=== PATIENT | female | born 1985 | race Caucasian/White ===

== ENCOUNTER → 2017-01-20 | Outpatient (CLI) | payer MEDICAID ==
[~2017-01-20] MED LIST: CEPH-38 PO; CPH250CIP PO; Cranberry; DICL75TA2 PO; DOXY1TAB3 PO; HYDR-3454 PO; HYDR-700 PO; LD2VS100B PO; METH4TAB PO; NITR-65 PO; ONDA4TAB10 SL; OXYC-12 PO; PREN1TAB86 PO; SULF1TAB38 PO
--- OUTSIDE RECORDS SUMMARY | 2017-01-20 09:35 | XMS REPORT ---
Author Author MARVIN BULL [facility] eClinicalWorks Address Unknown Phone Unavailable Care Team Providers Care Sign Maker Name Role Phone MARVIN BULL CP Unavailable Allergies, Adverse Reactions, Alerts Substance Reaction Event Type Penicillins Info Not Available Non Drug Allergy Problems Problem Type Condition Code Onset Dates Condition Status Problem Insomnia, unspecified 780.52 Active Problem Human papilloma virus in conditions classified elsewhere and of unspecified site 079.4 Active Problem Yeast infection 112.9 Active Problem Disturbance of skin sensation 782.0 Active Assessment Toe pain M79.676 Active Problem Papanicolaou smear of cervix with atypical squamous cells of undetermined significance (ASC-US) 795.01 Active Problem Syncope and collapse 780.2 Active Medications No Known Medications Procedures Procedure Coding System Code Date Office Visit, Est Pt., Level 3 CPT-4 80749 March 05, 2016 Vital Signs Date/Time: March 05, 2016 Temperature 98.3 F Weight 164.3 lbs Height 64 in BMI 28.20 Index Blood Pressure Diastolic 70 mmHg Blood Pressure Systolic 110 mmHg Cardiac Monitoring Heart Rate 88 bpm Results No Known Results Summary Purpose eClinicalWorks Submission
--- NOTE | 2017-01-21 13:09 | Diagnostic Imaging Report ---
US OB<14 WKS SNGLE W/TRANSVAG TECHNIQUE: Transabdominal and transvaginal grayscale, color Doppler, and spectral duplex analysis of the pelvis was performed. INDICATION: dating. COMPARISON: None available. FINDINGS: The uterus measures 8.7 x 5.3 x 5.3 cm. There is a gestational sac present at the level of the fundus and appropriately located along the endometrium. The gestational sac is normal in size. An embryo is present with a crown-rump length of approximately 0.45 cm, which corresponds to a gestational age of 6 weeks and 2 days. heart tones are identified at a rate of 120 beats per minute. No evidence of significant subchorionic hemorrhage. Both ovaries are seen and normal in appearance. The right ovary measures 3.4 x 3.6 x 2.2 cm. The left ovary measures 2.0 x 2.4 x 1.8 cm. Within the right ovary, there is a circumscribed 1.9 x 1.3 x 1.3 cm hypoechoic focus with internal echoes, likely representing involuting corpus luteum cyst. Blood flow is seen in both ovaries by color Doppler imaging. No free pelvic fluid. IMPRESSION: 1. Single live intrauterine with a heart rate of 120 beats per minute. 2. Estimated gestational age by ultrasound is 6 weeks and 2 days, based on crown-rump length. Dictated by: Dictated on workstation # [id number]
== END ==
LOC: RAD 09:32
PROVIDERS: ATTEND Family Medicine
DX: Z34.91 Encounter for supervision of normal pregnancy, unspecified, first trimester (principal)
CPT/HCPCS: 76801; 76817

== ENCOUNTER 2017-02-22 20:22 | Emergency (ER) | payer MEDICAID ==
[~2017-02-22] VITALS: Ht 162.6 cm; Wt 74.8 kg
[~2017-02-22 20:22] MED LIST changes: -Cranberry; -DOXY1TAB3 PO; -NITR-65 PO; -ONDA4TAB10 SL; -PREN1TAB86 PO
[2017-02-22] MEDS ORDERED: NS IV 1000 ML 1,000 ML IV ONE (20:41)
[2017-02-22] MEDS ORDERED: PREN1TAB86 PO (20:41)
[2017-02-22] MEDS ORDERED: ONDA4TAB10 SL (20:41)
[2017-02-22] MEDS ORDERED: ONDANSETRON 4 MG/2 ML (SDV) Z0FRAN IVP ONE ×2 (20:45→21:30)
--- NOTE | 2017-02-22 20:55 | ED GU-Female ---
General Chief Complaint: Abdominal/GI Problems Stated Complaint: 11 WKS PREG, VOMITING Nursing Triage Note: Pt c/o nausea and vomiting since last night. pt reports she is approx 11 weeks and has been having morning sickness but nausea and vomiting got much worse last night and today. Nursing Sepsis Screen: No Definite Risk Source: patient Exam Limitations: no limitations History of Present Illness Time seen by provider: 20:55 Initial Comments 31-year-old female patient presents to the emergency department complains of nausea and vomiting beginning last night. States she is approximately 11 weeks . States she has had morning sickness throughout the entire , but denies vomiting with it. Last night noted progressively worsening nausea and vomiting. Reports spouse had similar symptoms last 2-3 days. Timing/Duration: getting worse, other (last night) Severity/Quality: moderate Activities at Onset: none Prior Genitourinary Problems: none Sexual Juncal History: less than 2 months ago, single partner Modifying Factors: Worsens With Eating Allergies and Home Medications Allergies Coded Allergies: Penicillins (Unverified Allergy, Mild, RASH, 07/13/13) PER LILLIAM RECEIVED ROCEPHIN IN ER 07/12; NO PROBLEMS SO FAR Home Medications Doxylamine/Pyridoxine HCl 1 Each Tablet.dr, 2 EACH PO HS PRN for NAUSEA/VOMITING , #30 Ref 0 Prescribed by: GABRIELLA VIVAR on 02/22/172135 Nitrofurantoin Monohyd/M-Cryst 100 Mg Capsule, 1 TAB PO BID, #6 Ref 0 Prescribed by: GABRIELLA VIVAR on 02/22/172139 Ondansetron HCl 4 Mg Tablet, 4 MG SL PRN PRN for NAUSEA, #20 (Reported) Vit W-Ca,Fe,FA(<1 mg) 1 Each Tablet, 1 EACH PO DAILY, (Reported) Constitutional: No chills, No dizziness, No fever, malaise EENTM: no symptoms reported Respiratory: No cough, No short of breath Cardiovascular: No chest pain, No edema, No palpitations Gastrointestinal: No abdominal pain, No constipation, No diarrhea, No hematemesis, loss of appetite, No melena, nausea, vomiting Genitourinary: denies burning, denies discharge, denies dysuria, denies frequency, denies flank pain, denies hematuria, denies pain : Yes Musculoskeletal: no symptoms reported Skin: no symptoms reported Psychiatric/Neurological: No Symptoms Reported All Other Systemes Reviewed Negative Unless Noted: Yes (Negative excepted noted.) Past Bznoxgr-Uwojxs-Ybdmqe Hx Patient Social History Alcohol Use: Denies Use Recreational Drug Use: No Smoking Status: Never a Smoker Recent Foreign Travel: No Contact w/Someone Who Travel: No Recent Infectious Disease Expo: No Recent Hopitalizations: No Immunizations Up To Date Tetanus Booster (TDap): Unknown Seasonal Allergies Seasonal Allergies: No Surgeries HX Surgeries: No Respiratory Hx Respiratory Disorders: No Cardiovascular Hx Cardiac Disorders: No Neurological Hx Neurological Disorders: No Reproductive System : Yes Hx : 1 Hx Para: 0 Hx Total # of Abortions (Spona: 0 Hx Reproductive Disorders: No Sexually Transmitted Disease: No HIV/AIDS: No Female Reproductive Disorders: Denies Genitourinary Hx Genitourinary Disorders: Yes Genitourinary Disorders: Kidney Stones Gastrointestinal Hx Gastrointestinal Disorders: No Musculoskeletal Hx Musculoskeletal Disorders: No Endocrine Hx Endocrine Disorders: No HEENT HX ENT Disorders: No Cancer Hx Cancer: No Psychosocial Hx Psychiatric Problems: No Integumentary HX Skin/Integumentary Disorder: No Blood Transfusions Hx Blood Disorders: No Adverse Reaction to a Blood Tr: No Reviewed Nursing Assessment Reviewed/Agree w Nursing PMH: Yes Family Medical History Significant Family History: No Pertinent Family Hx Physical Exam Vital Signs Vital Sign - Last 12Hours 02/22/17 20:30 Temp 97.2 Pulse 79 Resp 18 B/P (MAP) 121/79 Pulse Ox 98 O2 Delivery Room Air Capillary Refill : Less Than 3 Seconds General Appearance: WD/WN, no apparent distress HEENT: PERRL/EOMI, pharynx normal Neck: supple, normal inspection Cardiovascular: regular rate, rhythm, no edema, no murmur Respiratory: lungs clear, normal breath sounds, no respiratory distress Gastrointestinal: normal bowel sounds, non tender, soft, no organomegaly, No distended Back: normal inspection Extremities: no pedal edema, normal capillary refill Neurologic/Psychiatric: alert, normal mood/affect, oriented x 3 Skin: normal color, warm/dry Progress/Results/Core Measures Results/Orders Lab Results My Orders Medications Given in ED Vital Signs/I&O Blood Pressure Mean: 93 Departure Communication Progress Notes FHT's 170 bpm. all laboratory findings discussed with the patient. Patient reports feeling better with medications, but states she is having some mild nausea. Patient given 1 dose of Phenergan prior to discharge. Discharge home with follow-up as an outpatient with Dr. Ely. Patient states she has an appointment with Dr. Ely tomorrow for regular f/u. All return precautions were discussed with the patient as described in the discharge instructions of this report. Patient voices understanding and agrees with the treatment plan. Patient case discussed with Dr. Gilliland, he agrees with the plan of care. Impression Impression: Primary Impression: Nausea and vomiting Qualified Codes: R11.2 - Nausea with vomiting, unspecified Additional Impressions: Volume depletion with 11 completed weeks gestation Disposition: HOME, SELF-CARE Condition: Improved Departure-Patient Inst. Decision time for Depature: 21:50 Referrals: BERNARDO ELY MD (PCP/Family) Primary Care Physician Patient Instructions: Nausea and Vomiting of (DC) Add. Discharge Instructions: All discharge instructions reviewed with patient and/or family. Voiced understanding. Medications as instructed. Tylenol [id number] if needed for pain or headache. Drink plenty of fluids. Clear liquid diet until symptoms improve, then increase diet slowly to a low-fat, bland diet. Follow- up with your cell preparer as an outpatient for recheck, call for appointment time. Return to the emergency department for worsened vomiting, diarrhea, fever , abdominal pain, vaginal bleeding with greater than 2 pads per for greater than 2 hours, vaginal discharge, or any other concerns. Scripts Nitrofurantoin Monohyd/M-Cryst (Macrobid 100 mg Capsule) 100 Mg Capsule 1 TAB PO BID, #6 CAP 0 Refills Prov: GABRIELLA VIVAR 02/22/17 Doxylamine/Pyridoxine HCl (Lenny Sinclair 10-10 mg Tablet) 1 Each Tablet.dr 2 EACH PO HS Y for NAUSEA/VOMITING, #30 TAB 0 Refills Prov: GABRIELLA VIVAR 02/22/17 GABRIELLA VIVAR Feb 22, 2017 20:55
[2017-02-22 21:12] LABS: BILIRUBIN,URINE NEGATIVE (NEGATIVE); KETONES,URINE 4+ (NEGATIVE); LEUKOCYTE ESTERASE ,URINE 2+ (NEGATIVE); NITRITE,URINE NEGATIVE (NEGATIVE); PH,URINE 6 (5-9); PROTEIN,URINE 1+ (NEGATIVE); UROBILINOGEN,URINE NORMAL (NORMAL)
[2017-02-22] MEDS ORDERED: FAMOTIDINE 20MG/2ML IV (PEPCID) IV STA (21:16)
[2017-02-22 21:18] LABS: BASOPHILS % (AUTO) 0 % (0-10); EOSINOPHILS % (AUTO) 0 % (0-10); LYMPHOCYTES % (AUTO) 10 % (12-44); MEAN CORPUSCULAR HEMOGLOBIN 31 PG (25-34); MEAN CORPUSCULAR HGB CONC 36 G/DL (32-36); MEAN CORPUSCULAR VOLUME 87 FL (80-99); MEAN PLATELET VOLUME 9.9 FL (7.4-10.4); MONOCYTES # (AUTO) 0.5 X 10^3 (0.0-1.0); MONOCYTES % (AUTO) 6 % (0-12); NEUTROPHILS # (AUTO) 8.3 X 10^3 (1.8-7.8); NEUTROPHILS % (AUTO) 84 % (42-75); PLATELET COUNT 224 10^3/uL (130-400); RED BLOOD COUNT 4.03 10^6/uL (4.35-5.85); RED CELL DISTRIBUTION WIDTH 12.6 % (10.0-14.5); WHITE BLOOD COUNT 9.9 10^3/uL (4.3-11.0)
[2017-02-22 21:28] LABS: SQUAMOUS EPITHELIAL CELL,UR >50 /HPF
[2017-02-22 21:29] LABS: ALANINE AMINOTRANSFERASE 10 U/L (0-55); ANION GAP 13 MMOL/L (5-14); ASPARTATE AMINO TRANSFERASE 15 U/L (5-34); BILIRUBIN,TOTAL 0.7 MG/DL (0.1-1.0); BLOOD UREA NITROGEN 9 MG/DL (7-18); BUN/CREATININE RATIO 14; CALCIUM 9.2 MG/DL (8.5-10.1); CARBON DIOXIDE 19 MMOL/L (21-32); CHLORIDE 106 MMOL/L (98-107); CREATININE SERUM 0.66 MG/DL (0.60-1.30); GFR ESTIMATED > 60; GLUCOSE 89 MG/DL (70-105); LIPASE 7 U/L (8-78); POTASSIUM 3.5 MMOL/L (3.6-5.0); SODIUM 138 MMOL/L (135-145); TOTAL PROTEIN 6.2 G/DL (6.4-8.2)
[2017-02-22] MEDS ORDERED: DOXY1TAB3 PO (21:36)
[2017-02-22] MEDS ORDERED: NITR-65 PO (21:40)
[2017-02-22 22:13] VITALS: BP 108/50
[2017-02-22] MEDS ORDERED: PROMETHAZINE 25 MG (PHENERGAN) TAB PO ONE (22:15)
--- OUTSIDE RECORDS SUMMARY | 2017-03-11 12:13 | XMS REPORT ---
Author Author MARVIN BULL [facility] eClinicalWorks Address Unknown Phone Unavailable Care Team Providers Care Microarray Analyst Name Role Phone MARVIN BULL CP Unavailable Allergies No Known Allergies Problems Problem Type Condition ICD-9 Code Onset Dates Condition Status Problem Human papilloma virus in conditions classified elsewhere and of unspecified site 079.4 Active Problem Papanicolaou smear of cervix with atypical squamous cells of undetermined significance (ASC-US) 795.01 Active Problem Insomnia, unspecified 780.52 Active Problem Syncope and collapse 780.2 Active Problem Disturbance of skin sensation 782.0 Active Medications No Known Medications Results No Known Results Summary Purpose eClinicalWorks Submission
--- OUTSIDE RECORDS SUMMARY | 2017-03-11 12:13 | XMS REPORT ---
Author Author MARVIN BULL [facility] eClinicalWorks Address Unknown Phone Unavailable Care Team Providers Care Java Golden Gate Developer Name Role Phone MARVIN BULL CP Unavailable Allergies, Adverse Reactions, Alerts Substance Reaction Event Type Penicillins Info Not Available Non Drug Allergy Problems Problem Type Condition Code Onset Dates Condition Status Problem Insomnia, unspecified 780.52 Active Problem Human papilloma virus in conditions classified elsewhere and of unspecified site 079.4 Active Problem Yeast infection 112.9 Active Problem Disturbance of skin sensation 782.0 Active Assessment Herpesviral vulvovaginitis A60.04 Active Problem Papanicolaou smear of cervix with atypical squamous cells of undetermined significance (ASC-US) 795.01 Active Problem Syncope and collapse 780.2 Active Medications Medication Code System Code Instructions Start Date End Date Status Dosage Diflucan [facility] [address]-26 150 MG Orally take one tab then repeat in 3-4 days Aug 29, 2015 Aug 31, 2015 1 tablet Acyclovir [facility] [address]-68 800 MG Orally 3 times a day Aug 31, 2015 1 tablet Procedures Procedure Coding System Code Date Office Visit, Est Pt., Level 2 CPT-4 43108 Aug 31, 2015 Vital Signs Date/Time: Aug 31, 2015 Temperature 97.7 F Weight 164.0 lbs Height 64 in BMI 28.15 Index Blood Pressure Diastolic 80 mmHg Blood Pressure Systolic 110 mmHg Cardiac Monitoring Heart Rate 84 bpm Results No Known Results Summary Purpose eClinicalWorks Submission
--- OUTSIDE RECORDS SUMMARY | 2017-03-11 12:13 | XMS REPORT ---
Author Author MARVIN BULL [facility] eClinicalWorks Address Unknown Phone Unavailable Care Team Providers Care Zoo Caretaker Name Role Phone MARVIN BULL CP Unavailable [...] Office Visit, Est Pt., Level 3 CPT-4 78523 March 05, 2016 Vital Signs Date/Time: March 05, 2016 Temperature 98.3 F Weight 164.3 lbs Height 64 in BMI 28.20 Index Blood Pressure Diastolic 70 mmHg Blood Pressure Systolic 110 mmHg Cardiac Monitoring Heart Rate 88 bpm Results No Known Results Summary Purpose eClinicalWorks Submission
--- OUTSIDE RECORDS SUMMARY | 2017-03-11 12:13 | XMS REPORT | Continuity of Care Document ---
Author Author [facility] Organization [facility] Address Unknown Phone Unavailable Care Team Providers Care Adult Basic Education Instructor Name Role Phone [facility] OF Insurance Providers Payer Name Policy Number Subscriber Name Relationship Self Pay Shantanu Benitez 01 Self / Same As Patient Advance Directives Directive Response Recorded Date Advance Directives N 07/13/13 4:05am Organ Donor Y 07/13/13 4:05am Problems No Known Problems or Medical conditions. Family History History Response Recorded Date/Time Hx Family Cancer N 07/13/13 4:05am Hx Family Breast Cancer N 07/13/13 4: 05am Hx Family Lung Cancer N 07/13/13 4:05am Hx Family Colorectal Cancer N 07/13/13 4: 05am Hx Family Cardiac Disorders Y 07/13/13 4: 05am Hx Family Stroke Y MATERNAL GRANDMOTHER 07/13/13 4:05am Hx Family Hypertension N 07/13/13 4:05am Hx Family Myocardial Infarction N 4:05am Hx Family Cystic Fibrosis N 07/13/13 4: 05am Social History History Response Recorded Date/Time Alcohol Use Occasionally Uses 07/13/13 4: 05am Recreational Drug Use N 07/13/13 4:05am Recent Foreign Travel N 07/13/13 4:05am Recent Infectious Disease Exposure N 4:05am Hospitalization with Isolation Denies 12:47pm Sexually Transmitted Disease N 07/13/13 4 :05am HIV/AIDS N 07/13/13 4:05am Allergies, Adverse Reactions, Alerts Allergen Type Severity Reaction Last Updated Penicillins Allergy Mild RASH 07/13/13 Medications Medication Dose Units Route Sig Qty Days Hydrocodone Bit/Acetaminophen (Vicodin 5-300 Mg Tablet) 1 Each PO Q4H PRN 30 Diclofenac Sodium 75 Mg PO BID 28 Cephalexin Hcl (Keflex Capsule) 500 Mg PO QID 8 Lidocaine HCl (Lidocaine Viscous 2%) 5 Ml PO AC 10 Cephalexin Monohydrate (Keflex) 1 Each PO QID 7 Hydroxyzine HCl (Hydroxyzine 25 Mg Tablet) 1 Each PO QID PRN 20 Response Recorded Date/Time Status not known Unknown Results Test Date Result Interp. Ref. Range Alanine Aminotransferase (ALT/SGPT) June 22, 2013 12:00am 24 U/L L 30-65 Albumin June 22, 2013 12:00am 3.8 G/DL N 3.4-5.0 Alkaline Phosphatase June 22, 2013 12:00am 70 U/L N 50-136 Aspartate Amino Transf (AST/SGOT) June 22, 2013 12:00am 20 U/L N 15-37 BUN/Creatinine Ratio July 13, 2013 1:23am 13 - Basophils # (Auto) July 13, 2013 1:23am 0.0 10^3/uL N 0.0-0.1 Basophils (%) (Auto) July 13, 2013 1:23am 0 % N 0-10 Blood Urea Nitrogen July 13, 2013 1:23am 10 MG/DL N 7-18 C-Reactive Protein July 13, 2013 1:23am 14.6 MG/DL H 0.2-0.9 Calcium Level July 13, 2013 1:23am 9.3 MG/DL N 8.5-10.1 Carbon Dioxide Level July 13, 2013 1:23am 25 MMOL/L N 21-32 Chloride Level July 13, 2013 1:23am 98 MMOL/L L 101-110 Creatinine July 13, 2013 1:23am 0.8 MG /DL N 0.6-1.3 Eosinophils # (Auto) July 13, 2013 1:23am 0.0 10^3/uL N 0.0-0.3 Eosinophils (%) (Auto) July 13, 2013 1:23am 0 % N 0-10 Glucose Level July 13, 2013 1:23am 91 MG/DL N 74-106 Group A Streptococcus Screen July 13, 2013 1:22am NEGATIVE - Hematocrit July 13, 2013 1:23am 38 % N 35-52 Hemoglobin July 13, 2013 1:23am 12.7 G /DL N 11.5-16.0 Lymphocytes # (Auto) July 13, 2013 1:23am 2.0 X 10^3 N 1.0-4.0 Lymphocytes (%) (Auto) July 13, 2013 1:23am 21 % N 12-44 Magnesium Level June 22, 2013 12:00am 2.1 MG/DL N 1.8-2.4 Mean Corpuscular Hemoglobin July 13, 2013 1:23am 30 PG N 25-34 Mean Corpuscular Hemoglobin Concent July 13, 2013 1:23am 34 G/DL N 32-36 Mean Corpuscular Volume July 13, 2013 1:23am 88 FL N 80-99 Mean Platelet Volume July 13, 2013 1:23am 9.8 FL N 7.4-10.4 Monocytes # (Auto) July 13, 2013 1:23am 1.3 X 10^3 H 0.0-1.0 Monocytes (%) (Auto) July 13, 2013 1:23am 13 % H 0-12 Monoscreen July 13, 2013 1:23am NEGATIVE - Neutrophils # (Auto) July 13, 2013 1:23am 6.4 X 10^3 N 1.8-7.8 Neutrophils (%) (Auto) July 13, 2013 1:23am 66 % N 42-75 Platelet Count July 13, 2013 1:23am 221 10^3/uL N 130-400 Potassium Level July 13, 2013 1:23am 3.6 MMOL/L N 3.6-5.0 Red Blood Count July 13, 2013 1:23am 4.26 10^6/uL L 4.35-5.85 Red Cell Distribution Width July 13, 2013 1:23am 12.6 % N 10.0-14.5 Sodium Level July 13, 2013 1:23am 133 MMOL/L L 135-145 TSH [place] Testing June 22, 2013 12:00am 0.99 UIU/ML N 0.34-5.60 Total Bilirubin June 22, 2013 12:00am 0.2 MG/DL N 0.0-1.0 Total Protein June 22, 2013 12:00am 7.7 G/DL N 6.4-8.2 Ur Tricyclic Antidepressants Screen June 22, 2013 12:40am NEGATIVE - Urine Amphetamines Screen June 22, 2013 12:40am NEGATIVE - Urine Bacteria June 22, 2013 12:40am LARGE /HPF H - Urine Barbiturates Screen June 22, 2013 12:40am NEGATIVE - Urine Benzodiazepines Screen June 22, 2013 12:40am NEGATIVE - Urine Bilirubin June 22, 2013 12:40am NEGATIVE - Urine Casts June 22, 2013 12:40am NONE / LPF - Urine Clarity June 22, 2013 12:40am CLEAR - Urine Cocaine Screen June 22, 2013 12:40am NEGATIVE - Urine Color June 22, 2013 12:40am YELLOW - Urine Crystals June 22, 2013 12:40am NONE /LPF - Urine Culture Indicated June 22, 2013 12:40am YES - Urine Glucose (UA) June 22, 2013 12:40am NEGATIVE - Urine Ketones June 22, 2013 12:40am 3+ H - Urine Leukocyte Esterase June 22, 2013 12:40am 2+ H - Urine Methamphetamines Screen June 22, 2013 12:40am NEGATIVE - Urine Mucus June 22, 2013 12:40am MODERATE /LPF H - Urine Nitrite June 22, 2013 12:40am NEGATIVE - Urine Opiates Screen June 22, 2013 12:40am NEGATIVE - Urine Phencyclidine Screen June 22, 2013 12:40am NEGATIVE - Urine Test June 22, 2013 12:40am NEGATIVE - Urine Propoxyphene Screen June 22, 2013 12:40am NEGATIVE - Urine Protein June 22, 2013 12:40am NEGATIVE - Urine RBC June 22, 2013 12:40am NONE / HPF - Urine Specific [place] June 22, 2013 12:40am 1.025 H - Urine Squamous Epithelial Cells June 22, 2013 12:40am 0-2 /HPF - Urine Urobilinogen June 22, 2013 12:40am NORMAL MG/DL - Urine WBC June 22, 2013 12:40am 0-2 / HPF - Urine pH June 22, 2013 12:40am 5 - White Blood Count July 13, 2013 1:23am 9.7 10^3/uL N 4.3-11.0 Serum Alcohol June 22, 2013 12:00am < 5 MG/DL -5 Estimat Glomerular Filtration Rate July 13, 2013 1:23am > 60 - Urine Oxycodone Screen June 22, 2013 12:40am NEGATIVE - Urine Methadone Screen June 22, 2013 12:40am NEGATIVE - Urine Cannabinoids Screen June 22, 2013 12:40am NEGATIVE - Urine Buprenorphine June 22, 2013 12:40am NEGATIVE - Urine RBC (Auto) June 22, 2013 12:40am NEGATIVE - Procedures Procedure Code Date Urine Culture 06/22/13 Encounters Encounter Location Date/Time Discharged Inpatient [facility] 3:02am Departed Emergency Room [facility] 11:59pm
--- OUTSIDE RECORDS SUMMARY | 2017-03-11 12:14 | XMS REPORT ---
Author Author MARVIN BULL [facility] eClinicalWorks Address Unknown Phone Unavailable Care Team Providers Care Patient Carrier Name Role Phone MARVIN BULL CP Unavailable Allergies, Adverse Reactions, Alerts Substance Reaction Event Type Penicillin V Potassium Info Not Available Drug Allergy Problems Problem Type Condition Code Onset Dates Condition Status Problem Insomnia, unspecified 780.52 Active Problem Human papilloma virus in conditions classified elsewhere and of unspecified site 079.4 Active Problem Yeast infection 112.9 Active Problem Disturbance of skin sensation 782.0 Active Assessment Insect bites, initial encounter W57.XXXA Active Problem Papanicolaou smear of cervix with atypical squamous cells of undetermined significance (ASC-US) 795.01 Active Problem Syncope and collapse 780.2 Active Medications Medication Code System Code Instructions Start Date End Date Status Dosage Zyrtec Allergy [facility] [address]-64 10 MG Orally Once a day [address] [facility] [address]-13 10 mg Orally Once a day Aug 13, 2016Aug 4 tablets daily X 4days, 3 tablets daily X 3 days, 2 tablets daily X 2 days, 1 tablet for 1 day Procedures Procedure Coding System Code Date Office Visit, Est Pt., Level 3 CPT-4 53133 Aug 13, 2016 Vital Signs Date/Time: Aug 13, 2016 Cardiac Monitoring Heart Rate 80 bpm Weight 168.1 lbs Height 64 in BMI 28.85 Index Blood Pressure Diastolic 70 mmHg Blood Pressure Systolic 110 mmHg Results No Known Results Summary Purpose eClinicalWorks Submission
--- OUTSIDE RECORDS SUMMARY | 2017-03-11 12:14 | XMS REPORT ---
Author Author MARVIN BULL [facility] eClinicalWorks Address Unknown Phone Unavailable Care Team Providers Care Senior Technical Support Analyst Name Role Phone MARVIN BULL CP Unavailable Allergies, Adverse Reactions, Alerts Substance Reaction Event Type Penicillins Info Not Available Non Drug Allergy Problems Problem Type Condition ICD-9 Code Onset Dates Condition Status Problem Human papilloma virus in conditions classified elsewhere and of unspecified site 079.4 Active Problem Papanicolaou smear of cervix with atypical squamous cells of undetermined significance (ASC-US) 795.01 Active Problem Insomnia, unspecified 780.52 Active Assessment Cervical cancer screening V76.2 Active Assessment High risk sexual behavior V69.2 Active Problem Syncope and collapse 780.2 Active Problem Disturbance of skin sensation 782.0 Active Medications No Known Medications Procedures Procedure Coding System Code Date TRICHOMONAS VAGIN, DIR PROBE CPT-4 46565 Aug 14, 2015 CULTURE, BACTERIA, OTHER CPT-4 89545 Aug 14, 2015 SPECIMEN HANDLING CPT-4 83035 Aug 14, 2015 Office Visit, Est Pt., Level 3 CPT-4 68725 Aug 14, 2015 HERPES SIMPLEX TYPE 2 CPT-4 32057 Aug 14, 2015 No Charge CPT-4 47661 Aug 14, 2015 VENIPUNCT, ROUTINE* CPT-4 78568 Aug 14, 2015 HERPES SIMPLEX TEST CPT-4 88018 Aug 14, 2015 Vital Signs Date/Time: Aug 14, 2015 Temperature 97.5 F Weight 165.8 lbs Height 64 in BMI 28.46 Index Blood Pressure Diastolic 68 mmHg Blood Pressure Systolic 106 mmHg Cardiac Monitoring Heart Rate 74 bpm Results Name Result Date Reference Range Unit Abnormality Flag TRICHOMONAS (IN HOUSE) Summary Purpose eClinicalWorks Submission
--- OUTSIDE RECORDS SUMMARY | 2017-03-11 12:14 | XMS REPORT | Continuity of Care Document ---
Author Author [facility] Organization [facility] Address Unknown Phone Unavailable Allergies Active Description Code Type Severity Reaction Onset Reported/Identified Relationship to Patient Clinical Status Yes Penicillins Drug Allergy N/A N/A 06/24/2013 Yes Penicillins [id number] Drug Allergy Mild RASH 07/13/2013 Medications Problems Date Dx Coded Attending Type Code Diagnosis Diagnosed By 06/22/2013 JENNIFER DONG, JIL Marcial Ot 276.52 HYPOVOLEMIA 06/22/2013 JIL RODRIGUEZ MD Ot 300.00 ANXIETY STATE NOS 06/22/2013 JIL RODRIGUEZ MD Ot 308.9 ACUTE STRESS REACT NOS 06/22/2013 JIL RODRIGUEZ MD Ot 599.0 URIN TRACT INFECTION NOS 06/22/2013 JIL RODRIGUEZ MD Ot 780.2 SYNCOPE AND COLLAPSE 06/22/2013 JIL RODRIGUEZ MD Ot 786.01 HYPERVENTILATION 06/24/2013 780.2 SYNCOPE 06/24/2013 CUAUHTEMOC MOULTON MD 780.2 SYNCOPE 06/24/2013 JESSICA GUERRERO APRNA L 780.2 SYNCOPE 06/24/2013 ALEX[place]RI[place] GEE APRN A 780.2 SYNCOPE 06/24/2013 CUAUHTEMOC MOULTON MD 780.2 SYNCOPE 06/24/2013 CESAR YANG EUGENE L 780.2 SYNCOPE 07/14/2013 COMFORT GIBBONS MD Ot 382.9 OTITIS MEDIA NOS 07/14/2013 COMFORT GIBBONS MD Ot 463 ACUTE TONSILLITIS 07/14/2013 COMFORT GIBBONS MD Ot 785.6 ENLARGEMENT LYMPH NODES 07/16/2013 DAVY DONG, LILLY Torre Ot 462 ACUTE PHARYNGITIS 07/16/2013 LILLY BHATTI MD Ot 787.20 DYSPHAGIA, UNSPECIFIED 07/25/2013 DARIANA DONG, ALY Michael Ot 599.0 URIN TRACT INFECTION NOS 07/25/2013 DARIANA DONG, ALY Michael Ot 787.01 NAUSEA WITH VOMITING 07/27/2013 787.01 NAUSEA WITH VOMITING 07/27/2013 CUAUHTEMOC MOULTON MD N 787.01 NAUSEA WITH VOMITING 07/27/2013 MADRanjana VALENTINAlvaro EUGENE L 787.01 NAUSEA WITH VOMITING 07/27/2013 GERARDWAYLON YANG [place] A 787.01 NAUSEA WITH VOMITING 07/27/2013 CUAUHTEMOC MOULTON MD N 787.01 NAUSEA WITH VOMITING 07/27/2013 JOSERanjana YANG EUGENE L 787.01 NAUSEA WITH VOMITING 12/23/2013 CUAUHTEMOC MOULTON MD 719.44 PAIN IN JOINT INVOLVING HAND 12/23/2013 ASHLYN GUERRERO APRNWNYA L 719.44 PAIN IN JOINT INVOLVING HAND 12/23/2013 BEATA GEE APRNIDI A 719.44 PAIN IN JOINT INVOLVING HAND 12/23/2013 CUAUHTEMOC MOULTON MD N 719.44 PAIN IN JOINT INVOLVING HAND 12/23/2013 MADRanjana YANG EUGENE L 719.44 PAIN IN JOINT INVOLVING HAND 01/04/2014 ORESTES CASTAÑEDA MD Ot 354.0 CARPAL TUNNEL SYNDROME 01/04/2014 ORESTES CASTAÑEDA MD Ot 729.5 PAIN IN LIMB 04/27/2014 MADL CLAY ARTIST, EUGENE L 729.5 PAIN IN LIMB 04/27/2014 MADL CLAY ARTIST, EUGENE L 782.0 DISTURBANCE OF SKIN SENSATION 04/27/2014 GERARD YANG [place] A 729.5 PAIN IN LIMB 04/27/2014 GERARD YANG [place] A 782.0 DISTURBANCE OF SKIN SENSATION 04/27/2014 CUAUHTEMOC MOULTON MD N 729.5 PAIN IN LIMB 04/27/2014 CUAUHTEMOC MOULTON MD N 782.0 DISTURBANCE OF SKIN SENSATION 04/27/2014 MADRanjana YANG EUGENE L 729.5 PAIN IN LIMB 04/27/2014 MADL CLAY ARTIST, EUGENE L 782.0 DISTURBANCE OF SKIN SENSATION 05/31/2014 GERARD YANG [place] A 625.70 VULVODYNIA UNSPECIFIED 05/31/2014 GERARD YANG, [place] A 780.52 INSOMNIA UNSPECIFIED 05/31/2014 GERARD YANG, [place] A V58.69 LONG-TERM (CURRENT) USE OF OTHER MEDICATIONS 05/31/2014 BEATA GEE APRNIDI A V74.5 STD SCREEN 05/31/2014 BEATA GEE APRNIDI A V76.2 CERVICAL CANCER SCREENING (PAP SMEAR) 05/31/2014 CUAUHTEMOC MOULTON MD 625.70 VULVODYNIA UNSPECIFIED 05/31/2014 CUAUHTEMOC MOULTON MD 780.52 INSOMNIA UNSPECIFIED 05/31/2014 CUAUHTEMOC MOULTON MD V58.69 LONG-TERM (CURRENT) USE OF OTHER MEDICATIONS 05/31/2014 CUAUHTEMOC MOULTON MD V74.5 STD SCREEN 05/31/2014 CUAUHTEMOC MOULTON MD V76.2 CERVICAL CANCER SCREENING (PAP SMEAR) 05/31/2014 JESSICA GUERRERO APRNA L 625.70 VULVODYNIA UNSPECIFIED 05/31/2014 MADRanjana YANG EUGENE L 780.52 INSOMNIA UNSPECIFIED 05/31/2014 JOSEL CLAY ARTIST, EUGENE L V58.69 LONG-TERM (CURRENT) USE OF OTHER MEDICATIONS 05/31/2014 JOSEL TREY EUGENE L V74.5 STD SCREEN 05/31/2014 MADL CLAY ARTIST, EUGENE L V76.2 CERVICAL CANCER SCREENING (PAP SMEAR) 06/22/2014 CUAUHTEMOC MOULTON MD N 079.4 HPV 06/22/2014 CUAUHTEMOC MOULTON MD N 795.01 ABNORMAL PAP - ASCUS 06/22/2014 MADL CLAY ARTIST, EUGENE L 079.4 HPV 06/22/2014 MADL CLAY ARTIST, EUGENE L 795.01 ABNORMAL PAP - ASCUS 03/27/2015 CESAR YANG EUGENE L 372.30 CONJUNCTIVITIS UNSPECIFIED 01/21/2017 SOLIS DONG, BERNARDO Johnson Ot Z34.91 ENCNTR FOR SUPRVSN OF NORMAL PREG, UNSP, 02/24/2017 GABRIELLA THOMAS Ot E86.9 VOLUME DEPLETION, UNSPECIFIED 02/24/2017 GABRIELLA THOMAS Ot O99.611 DISEASES OF THE DGSTV SYS COMP 02/24/2017 GABRIELLA THOMAS Ot R11.2 NAUSEA WITH VOMITING, UNSPECIFIED 02/24/2017 GABRIELLA THOMAS Ot Z3A.01 LESS THAN 8 WEEKS GESTATION OF 02/24/2017 SOLIS DONG, BERNARDO Johnson Ot Z34.91 ENCNTR FOR SUPRVSN OF NORMAL PREG, UNSP, Procedures Code Description [place] [address] CULTURE UROGENITAL 05/31/2014 16766 GC/CHLAM PROBE (STATE) 05/31/2014 31508 PAP SMEAR 2013 Q0091 PAP SMEAR OBTAIN SMEAR 05/31/2014 26431 TEST, URINE (IN-HOUSE) 05/31/2014 70064 TRICHOMONAS (IN-HOUSE) 05/31/2014 13392 TEST, URINE (IN-HOUSE) 06/22/2014 97335 COLP W/ BX & ECC 06/22/2014 Results Test Result Range Bacterial urine culture - 02/22/17 21:00 Bacterial urine culture FOOTNOTE NRG Complete blood count (CBC) with automated white blood cell (WBC) differential - 02/22/17 21:04 Blood leukocytes automated count (number/volume) 9.9 10*3/ uL 4.3-11.0 Blood erythrocytes automated count (number/volume) 4.03 10*6 /uL 4.35-5.85 Venous blood hemoglobin measurement (mass/volume) 12.5 g/dL 11.5-16.0 Blood hematocrit (volume fraction) 35 % 35-52 Automated erythrocyte mean corpuscular volume 87 [foz_us] 80-99 Automated erythrocyte mean corpuscular hemoglobin (mass per erythrocyte) 31 pg 25-34 Automated erythrocyte mean corpuscular hemoglobin concentration measurement ( mass/volume) 36 g/dL 32-36 Automated erythrocyte distribution width ratio 12.6 % 10.0-14.5 Automated blood platelet count (count/volume) 224 10*3/uL 130-400 Automated blood platelet mean volume measurement 9.9 [foz_us ] 7.4-10.4 Automated blood neutrophils/100 leukocytes 84 % 42-75 Automated blood lymphocytes/100 leukocytes 10 % 12-44 Blood monocytes/100 leukocytes 6 % 0-12 Automated blood eosinophils/100 leukocytes 0 % 0-10 Automated blood basophils/100 leukocytes 0 % 0-10 Blood neutrophils automated count (number/volume) 8.3 10*3 1.8-7.8 Blood lymphocytes automated count (number/volume) 1.0 10*3 1.0-4.0 Blood monocytes automated count (number/volume) 0.5 10*3 0.0-1.0 Automated eosinophil count 0.0 10*3/uL 0.0-0.3 Automated blood basophil count (count/volume) 0.0 10*3/uL 0.0-0.1 Comprehensive metabolic panel - 02/22/17 21:04 Serum or plasma sodium measurement (moles/volume) 138 mmol/ L 135-145 Serum or plasma potassium measurement (moles/volume) 3.5 mmol/L 3.6-5.0 Serum or plasma chloride measurement (moles/volume) 106 mmol /L 98-107 Carbon dioxide 19 mmol/L 21-32 Serum or plasma anion gap determination (moles/volume) 13 mmol/L 5-14 Serum or plasma urea nitrogen measurement (mass/volume) 9 mg /dL 7-18 Serum or plasma creatinine measurement (mass/volume) 0.66 mg /dL 0.60-1.30 Serum or plasma urea nitrogen/creatinine mass ratio 14 NRG Serum or plasma creatinine measurement with calculation of estimated glomerular filtration rate > NRG Serum or plasma glucose measurement (mass/volume) 89 mg/dL 70-105 Serum or plasma calcium measurement (mass/volume) 9.2 mg/dL 8.5-10.1 Serum or plasma total bilirubin measurement (mass/volume) 0.7 mg/dL 0.1-1.0 Serum or plasma alkaline phosphatase measurement (enzymatic activity/volume) 42 U/L 40-136 Serum or plasma aspartate aminotransferase measurement (enzymatic activity/ volume) 15 U/L 5-34 Serum or plasma alanine aminotransferase measurement (enzymatic activity/volume ) 10 U/L 0-55 Serum or plasma protein measurement (mass/volume) 6.2 g/dL 6.4-8.2 Serum or plasma albumin measurement (mass/volume) 4.0 g/dL 3.2-4.5 Lipase - 02/22/17 21:04 Lipase 7 U/L 8-78 Complete urinalysis with reflex to culture - 02/22/17 21:06 Urine color determination YELLOW NRG Urine clarity determination VERY CLOUDY NRG Urine pH measurement by test strip 6 5- 9 Specific gravity of urine by test strip 1.020 1.016-1.022 Urine protein assay by test strip, semi-quantitative 1+ NEGATIVE Urine glucose detection by automated test strip NEGATIVE NEGATIVE Erythrocytes detection in urine sediment by light microscopy NEGATIVE NEGATIVE Urine ketones detection by automated test strip 4+ NEGATIVE Urine nitrite detection by test strip NEGATIVE NEGATIVE Urine total bilirubin detection by test strip NEGATIVE NEGATIVE Urine urobilinogen measurement by automated test strip (mass/volume) NORMAL NORMAL Urine leukocyte esterase detection by dipstick 2+ NEGATIVE Automated urine sediment erythrocyte count by microscopy (number/high power field) NONE NRG Automated urine sediment leukocyte count by microscopy (number/high power field ) [HPF] NRG Bacteria detection in urine sediment by light microscopy TRACE NRG Squamous epithelial cells detection in urine sediment by light microscopy >50 NRG Crystals detection in urine sediment by light microscopy NONE NRG Casts detection in urine sediment by light microscopy NONE NRG Mucus detection in urine sediment by light microscopy MODERATE NRG Complete urinalysis with reflex to culture YES NRG Renal epithelial cells detection in urine sediment by light microscopy NONE NRG Other elements identification in urine sediment by light microscopy FEW SPERM NRG Encounters ACCT No. Visit Date/Time Discharge Status Pt. Type Provider Facility Loc./Unit Complaint [id number] 02/22/2017 20:24:00 2016 22:13:00 DIS Outpatient GABRIELLA THOMAS [facility] ER 11 WKS PREG, VOMITING [id number] 01/04/2014 12:42:00 2013 14:05:00 DIS Emergency GARRY DONG, ORESTES Romero [facility] ER ANSON HAND PAIN/STIFFNESS/ NUMBNESS [id number] 07/25/2013 13:53:00 2012 17:53:00 DIS Emergency DARIANA DONG, ALY Michael [facility] ER VOMITING ABD PAIN [id number] 07/16/2013 16:39:00 2012 20:37:00 DIS Emergency LILLY BHATTI MD [facility] ER SORE THROAT,FEVER,HEADACHE [id number] 07/13/2013 03:02:00 2012 12:26:00 DIS Inpatient SHAI DONG, COMFORT Mackey [facility] 4TH SEVERE PHARYNGITIS,OTITIS MEDIA [id number] 07/11/2013 14:31:00 2012 23:59:59 CLS Outpatient [id number] 06/21/2013 23:59:00 2012 02:10:00 DIS Emergency JENNIFER DONG, JIL Marcial [facility] ER PASSED OUT [id number] 01/20/2017 09:32:00 ACT Outpatient SOLIS DONG, BERNARDO Johnson [facility] RAD DATING
--- OUTSIDE RECORDS SUMMARY | 2017-03-11 12:14 | XMS REPORT | Continuity of Care Document ---
Author Author [facility] Organization [facility] Address Unknown Phone Unavailable Care Team Providers Care Glass Setter Name Role Phone NO, LOCAL PHYSICIAN PP Unavailable Insurance Providers Payer Name Policy Number Subscriber Name Relationship Self Pay Nely Benitez 01 Self / Same As Patient Advance Directives Directive Response Recorded Date Advance Directives N 06/21/13 11:59pm Problems No Known Problems or Medical conditions. Social History History Response Recorded Date/Time Alcohol Use Rarely Uses 06/21/13 11:59pm Recreational Drug Use N 06/21/13 11:59pm Sexually Transmitted Disease N 06/21/13 11:59pm HIV/AIDS N 06/21/13 11:59pm Allergies, Adverse Reactions, Alerts Allergen Type Severity Reaction Last Updated PCN Allergy Unknown 06/22/13 Medications Medication Dose Units Route Sig Qty Days Cephalexin Monohydrate (Keflex) 1 Each PO QID 7 Hydroxyzine HCl (Hydroxyzine 25 Mg Tablet) 1 Each PO QID PRN 20 Response Recorded Date/Time Status not known Unknown Results No Known Relevant Diagnostic Tests, Laboratory Data and/or Discharge Summary. Encounters Encounter Location Date/Time Registered Emergency Room [facility] 06/21/13 11:59pm
--- OUTSIDE RECORDS SUMMARY | 2017-03-11 12:14 | XMS REPORT | Continuity of Care Document ---
Author Author [facility] Organization [facility] Address Unknown Phone Unavailable Care Team Providers Care Sales Engineer Name Role Phone [facility] OF Insurance Providers Payer Name Policy Number Subscriber Name Relationship Self Pay Shantanu Benitez 01 Self / Same As Patient Advance Directives Directive Response Recorded Date Advance Directives N 07/25/13 1:57pm Organ Donor Y 07/25/13 1:57pm Problems No Known Problems or Medical conditions. [...] Response Recorded Date/Time Alcohol Use Occasionally Uses 07/25/13 1: 57pm Recreational Drug Use N 07/25/13 1:57pm Recent Foreign Travel N 07/25/13 1:57pm Recent Infectious Disease Exposure N 1:57pm Hospitalization with Isolation Denies 1:57pm Sexually Transmitted Disease N 07/25/13 1 :57pm HIV/AIDS N 07/25/13 1:57pm Allergies, Adverse Reactions, Alerts Allergen Type Severity Reaction Last Updated Penicillins Allergy Mild RASH 07/13/13 Medications Medication Dose Units Route Sig Qty Days Trimethoprim/Sulfamethoxazole (Septra Ds 800-160 Mg) 1 Tab PO BID 14 Oxycodone Hcl/Acetaminophen (Percocet 5-325 Mg Tablet) 1 - 2 Each PO Q6H PRN 10 Hydrocodone Bit/Acetaminophen (Vicodin 5-300 Mg Tablet) 1 Each PO Q4H PRN 30 Cephalexin Hcl (Keflex Capsule) 500 Mg PO QID 8 Lidocaine HCl (Lidocaine Viscous 2%) 5 Ml PO AC 10 Methylprednisolone (Medrol Dose Pack) 1 Packet PO UD 1 Diclofenac Sodium 75 Mg PO BID 28 Cephalexin Monohydrate (Keflex) 1 Each PO QID 7 Hydroxyzine HCl (Hydroxyzine 25 Mg Tablet) 1 Each PO QID PRN 20 Response Recorded Date/Time Status not known Unknown Results No Known Relevant Diagnostic Tests, Laboratory Data and/or Discharge Summary. Encounters Encounter Location Date/Time Departed Emergency Room [facility] 1:53pm Discharged Inpatient [facility] 3:02am
--- OUTSIDE RECORDS SUMMARY | 2017-03-11 12:14 | XMS REPORT | Continuity of Care Document ---
Author Author [facility] Organization [facility] Address Unknown Phone Unavailable Care Team Providers Care Principal Law Clerk Name Role Phone [facility] OF Insurance Providers Payer Name Policy Number Subscriber Name Relationship Self Pay Shantanu Benitez 01 Self / Same As Patient Advance Directives Directive Response Recorded Date Advance Directives N 07/16/13 4:47pm Organ Donor Y 07/16/13 4:47pm Problems No Known Problems or Medical conditions. [...] Response Recorded Date/Time Alcohol Use Occasionally Uses 07/16/13 4: 47pm Recreational Drug Use N 07/16/13 4:47pm Recent Foreign Travel N 07/16/13 4:47pm Recent Infectious Disease Exposure N 4:47pm Hospitalization with Isolation Denies 4:47pm Sexually Transmitted Disease N 07/16/13 4 :47pm HIV/AIDS N 07/16/13 4:47pm Allergies, Adverse Reactions, Alerts Allergen Type Severity Reaction Last Updated Penicillins Allergy Mild RASH 07/13/13 Medications Medication Dose Units Route Sig Qty Days Methylprednisolone (Medrol Dose Pack) 1 Packet PO UD 1 Oxycodone Hcl/Acetaminophen (Percocet 5-325 Mg Tablet) 1 [...] Date/Time Departed Emergency Room [facility] 4:39pm Discharged Inpatient [facility] 3:02am
== END 2017-02-22 22:13 | disposition home or self-care (01) ==
LOC: EDUNIT# 20:22 → ER 20:24
DX: O99.611 Diseases of the digestive system complicating pregnancy, first trimester (principal); R11.2 Nausea with vomiting, unspecified; E86.9 Volume depletion, unspecified; Z3A.01 Less than 8 weeks gestation of pregnancy
CPT/HCPCS: 36415; 80053; 81000; 83690; 85025; 87088; 96361; 96374; 96375

== ENCOUNTER 2017-04-09 19:41 | Emergency (ER) | payer MEDICAID ==
[~2017-04-09] VITALS: Ht 162.6 cm; Wt 73.9 kg
[~2017-04-09 19:41] MED LIST changes: +DOXY1TAB3 PO; +NITR-65 PO; +ONDA4TAB10 SL; +PREN1TAB86 PO
[2017-04-09 20:08] LABS: BASOPHILS % (AUTO) 0 % (0-10); EOSINOPHILS # (AUTO) 0.2 10^3/uL (0.0-0.3); EOSINOPHILS % (AUTO) 2 % (0-10); LYMPHOCYTES # (AUTO) 1.9 X 10^3 (1.0-4.0); LYMPHOCYTES % (AUTO) 19 % (12-44); MEAN CORPUSCULAR HEMOGLOBIN 32 PG (25-34); MEAN CORPUSCULAR HGB CONC 34 G/DL (32-36); MEAN CORPUSCULAR VOLUME 93 FL (80-99); MEAN PLATELET VOLUME 9.6 FL (7.4-10.4); MONOCYTES # (AUTO) 0.9 X 10^3 (0.0-1.0); MONOCYTES % (AUTO) 9 % (0-12); NEUTROPHILS # (AUTO) 6.9 X 10^3 (1.8-7.8); NEUTROPHILS % (AUTO) 70 % (42-75); PLATELET COUNT 206 10^3/uL (130-400); RED BLOOD COUNT 3.49 10^6/uL (4.35-5.85); RED CELL DISTRIBUTION WIDTH 14.7 % (10.0-14.5); WHITE BLOOD COUNT 9.9 10^3/uL (4.3-11.0)
[2017-04-09 20:10] LABS: BILIRUBIN,URINE NEGATIVE (NEGATIVE); KETONES,URINE 1+ (NEGATIVE); LEUKOCYTE ESTERASE ,URINE 1+ (NEGATIVE); NITRITE,URINE NEGATIVE (NEGATIVE); PH,URINE 6.5 (5-9); PROTEIN,URINE 1+ (NEGATIVE); UROBILINOGEN,URINE NORMAL (NORMAL)
[2017-04-09] MEDS ORDERED: Cranberry (20:17)
--- NOTE | 2017-04-09 22:14 | ED GU-Female ---
General Chief Complaint: -Female Stated Complaint: VAGINAL BLEEDING 17 WEEKS Nursing Triage Note: Pt presents to ED after post intercourse revealing vaginal bleeding. Pt up to bathroom to void and notedthe bleeding and came to ER within 5 min. Pt is very anxious and early hyperventilating. Nursing Sepsis Screen: No Definite Risk Source: patient, old records Exam Limitations: no limitations History of Present Illness Time seen by provider: 19:44 Initial Comments This 31-year-old woman at a proximally 17 weeks gestational age presents to the emergency room with vaginal bleeding that started immediately after having intercourse. She denies any pain. She has some nausea which has been present throughout the . She now just has some mild spotting. She had an ultrasound performed January 20 which showed a single live intrauterine at about 6 weeks gestation. has been relatively unremarkable until now. She has already had her pelvic exam with Dr. Romero. heart tones were in the 150s by Doppler. She has felt movement for the first time today. Allergies and Home Medications Allergies Coded Allergies: Penicillins (Unverified Allergy, Mild, RASH, 07/13/13) PER LILLIAM RECEIVED ROCEPHIN IN ER 07/12; NO PROBLEMS SO FAR Home Medications Ondansetron HCl 4 Mg Tablet, 4 MG SL PRN PRN for NAUSEA, #20 (Reported) Vit W-Ca,Fe,FA(<1 mg) 1 Each Tablet, 1 EACH PO DAILY, (Reported) [Cranberry] , (Reported) Constitutional: no symptoms reported EENTM: no symptoms reported Respiratory: no symptoms reported Cardiovascular: no symptoms reported Gastrointestinal: see HPI Genitourinary: no symptoms reported Expected Date of Delivery: Jul 14, 2017 Musculoskeletal: no symptoms reported Skin: no symptoms reported Psychiatric/Neurological: No Symptoms Reported Endocrine: No Symptoms Reported Past Dsdpagn-Sptign-Fykeoh Hx Patient Social History Alcohol Use: Denies Use Recreational Drug Use: No Smoking Status: Never a Smoker 2nd Hand Smoke Exposure: No Recent Foreign Travel: No Contact w/Someone Who Travel: No Recent Infectious Disease Expo: No Recent Hopitalizations: No Immunizations Up To Date Tetanus Booster (TDap): Unknown Seasonal Allergies Seasonal Allergies: No Surgeries HX Surgeries: No Respiratory Hx Respiratory Disorders: No Cardiovascular Hx Cardiac Disorders: No Neurological Hx Neurological Disorders: No Reproductive System : Yes Hx : 1 Hx Para: 0 Hx Reproductive Disorders: No Sexually Transmitted Disease: No HIV/AIDS: No Female Reproductive Disorders: Denies Genitourinary Hx Genitourinary Disorders: Yes Genitourinary Disorders: Kidney Stones Gastrointestinal Hx Gastrointestinal Disorders: No Musculoskeletal Hx Musculoskeletal Disorders: No Endocrine Hx Endocrine Disorders: No HEENT HX ENT Disorders: No Cancer Hx Cancer: No Psychosocial Hx Psychiatric Problems: No Integumentary HX Skin/Integumentary Disorder: No Blood Transfusions Hx Blood Disorders: No Adverse Reaction to a Blood Tr: No Family Medical History Significant Family History: No Pertinent Family Hx Physical Exam Vital Signs Vital Sign - Last 12Hours 04/09/17 19:48 Temp 99.0 Pulse 99 Resp 20 B/P (MAP) 121/77 Pulse Ox 98 O2 Delivery Room Air Capillary Refill : Less Than 3 Seconds General Appearance: WD/WN, mild distress (emotional) HEENT: PERRL/EOMI, normal ENT inspection Cardiovascular: regular rate, rhythm, no edema, no murmur Respiratory: normal breath sounds, no respiratory distress Gastrointestinal: non tender, soft Pelvic: no cerv. motion tender, no masses, other (blood noted on the vulva and around the vaginal introitus. Patient has some hymenal remnant tissue and skin tags within the vaginal vault that could be the source of bleeding. Cervix appears healthy without any bleeding. There is some milky white mucousy discharge from the cervical os.) Extremities: normal inspection, no pedal edema Neurologic/Psychiatric: refueling rampman II-XII nml as tested, no motor/sensory deficits, alert, normal mood/affect, oriented x 3 Skin: normal color, warm/dry Progress/Results/Core Measures Results/Orders Lab Results Laboratory Tests Test 04/09/17 19:59 04/09/17 21:32 Range/Units White Blood Count 9.9 4.3-11.0 10^3/uL Red Blood Count 3.49 L 4.35-5.85 10^6/uL Hemoglobin 11.1 L 11.5-16.0 G/DL Hematocrit 33 L 35-52 % Mean Corpuscular Volume 93 80-99 FL Mean Corpuscular Hemoglobin 32 25-34 PG Mean Corpuscular Hemoglobin Concent 34 32-36 G/DL Red Cell Distribution Width 14.7 H 10.0-14.5 % Platelet Count 206 130-400 10^3/uL Mean Platelet Volume 9.6 7.4-10.4 FL Neutrophils (%) (Auto) 70 42-75 % Lymphocytes (%) (Auto) 19 12-44 % Monocytes (%) (Auto) 9 0-12 % Eosinophils (%) (Auto) 2 0-10 % Basophils (%) (Auto) 0 0-10 % Neutrophils # (Auto) 6.9 1.8-7.8 X 10^3 Lymphocytes # (Auto) 1.9 1.0-4.0 X 10^3 Monocytes # (Auto) 0.9 0.0-1.0 X 10^3 Eosinophils # (Auto) 0.2 0.0-0.3 10^3/uL Basophils # (Auto) 0.0 0.0-0.1 10^3/uL Urine Color YELLOW Urine Clarity SLIGHTLY CLOUDY Urine pH 6.5 5-9 Urine Specific [place] 1.020 1.016-1.022 Urine Protein 1+ H NEGATIVE Urine Glucose (UA) NEGATIVE NEGATIVE Urine Ketones 1+ H NEGATIVE Urine Nitrite NEGATIVE NEGATIVE Urine Bilirubin NEGATIVE NEGATIVE Urine Urobilinogen NORMAL NORMAL MG/DL Urine Leukocyte Esterase 1+ H NEGATIVE Urine RBC (Auto) 5+ H NEGATIVE Urine RBC >100 H /HPF Urine WBC 2-5 /HPF Urine Squamous Epithelial Cells 2-5 /HPF Urine Crystals PRESENT H /LPF Urine Amorphous Sediment RARE IAN URATES H /LPF Urine Bacteria TRACE /HPF Urine Casts NONE /LPF Urine Mucus NEGATIVE /LPF Urine Culture Indicated NO My Orders Orders - JIL RODRIGUEZ MD Cbc With Automated Diff (04/09/17 19:43) Ua Culture If Indicated (04/09/17 19:43) Abo Rh Type (04/09/17 19:45) Wet Prep (04/09/17 21:41) Neisseria Gonorrhea Dna (04/09/17 21:41) Chlamydia Dna (04/09/17 21:41) Genital Culture (04/09/17 21:41) Neo Prep (04/09/17 21:41) Vital Signs/I&O Vital Sign - Last 12Hours 04/09/17 04/09/17 19:48 22:24 Temp 99.0 Pulse 99 89 Resp 20 20 B/P (MAP) 121/77 Pulse Ox 98 99 O2 Delivery Room Air Blood Pressure Mean: 92 Progress Note : Progress Note Preliminary vaginal swab revealed no significant abnormalities except for large white blood cells. Case was reviewed with . No further treatment was recommended at this time. He will have her follow-up in the clinic tomorrow. Return precautions reviewed. Strict pelvic rest was recommended. Departure Impression Impression: Primary Impression: Vaginal bleeding in Qualified Codes: O46.92 - Antepartum hemorrhage, unspecified, second trimester Disposition: HOME, SELF-CARE Condition: Improved Departure-Patient Inst. Decision time for Depature: 22:10 Referrals: BERNARDO ROMERO MD (PCP/Family) Primary Care Physician Patient Instructions: NO INSTRUCTIONS GIVEN Add. Discharge Instructions: Nothing vaginally including intercourse until cleared by Dr. Romero. Return to the emergency room if symptoms worsen. Contact Dr. Romero's office tomorrow morning for follow-up instructions. All discharge instructions reviewed with patient and/or family. Voiced understanding. Copy Copies To 1: BERNARDO ROMERO MD, JOSHUA T MD April 09, 2017 22:14
[2017-04-09 22:24] VITALS: BP 110/53
== END 2017-04-09 22:24 | disposition home or self-care (01) ==
LOC: EDUNIT# 19:41 → ER 19:42
DX: O46.92 Antepartum hemorrhage, unspecified, second trimester (principal); Z3A.17 17 weeks gestation of pregnancy
CPT/HCPCS: 36415; 81000; 85025; 86900; 86901; 87070; 87210; 87220; 87491; 87591; 99284

== ENCOUNTER → 2017-04-18 | Outpatient (CLI) | payer MEDICAID ==
[~2017-04-18] MED LIST changes: +Cranberry
--- NOTE | 2017-04-18 17:17 | Diagnostic Imaging Report ---
INDICATION: Survey. TECHNIQUE: Multiple real-time grayscale images were obtained over the gravid uterus. COMPARISON: None FINDINGS: There is single live intrauterine fetus. Fetus is currently vertex and active. heart rate of 142 beats per minute. Amniotic fluid index is normal. Placenta is anterior and not low. Cervical length is 4.2 cm. anatomical survey is normal with the exception that the spine was not well-visualized due to position. Umbilical cord insertion also not well seen. There is a three-vessel cord. Biometrical measurements are as follows: Biparietal 4.7 cm, age 20 weeks 2 days. Head circumference 17.3 cm, age 20 weeks 0 days. Abdominal circumference 14 cm, age 19 weeks 3 days. Femur length 3.3 cm, age 20 weeks 1 days. Sonographic estimate age: 20 weeks 0 days. Sonographic estimated date of delivery: 09-05-2017. Estimated Weight: 312 gm (+/- 46 gm). LMP percentile: 92%. heart rate: 142 beats per minute. number: 1 of 1. IMPRESSION: 1. There is a 20 week zero day live intrauterine by ultrasound biometric measurements. Sonographic estimated date of delivery is 09/05/2017. 2. spine was not well-visualized today. Umbilical cord insertion also not well seen. Dictated by: Dictated on workstation # [id number]
== END ==
LOC: RAD 14:00
PROVIDERS: ATTEND Family Medicine
DX: Z34.92 Encounter for supervision of normal pregnancy, unspecified, second trimester (principal); Z36 Encounter for antenatal screening of mother
CPT/HCPCS: 76805

== ENCOUNTER 2017-07-18 15:14 | Outpatient (CLI) | payer MEDICAID ==
[2017-07-18] MEDS ORDERED: IRON SUPPLEMENT PO (15:47)
[2017-07-18] MEDS ORDERED: NITR-65 PO ×2 (16:47→16:51)
== END 2017-07-18 15:28 | disposition home or self-care (01) ==
LOC: WSo 15:14 → LDRP 15:15 → WSo 15:28
PROVIDERS: ATTEND Family Medicine
DX: Z53.9 Procedure and treatment not carried out, unspecified reason (principal)

== ENCOUNTER 2017-07-18 15:27 | Emergency (ER) | payer MEDICAID ==
[~2017-07-18] VITALS: Ht 162.6 cm; Wt 76.7 kg
[2017-07-18] MEDS ORDERED: IRON SUPPLEMENT PO (15:47)
--- NOTE | 2017-07-18 15:50 | ED General ---
General Chief Complaint: Respiratory Problems Stated Complaint: SOA;NUMBNESS IN HANDS;BURNING IN LEGS Source of Information: Patient History of Present Illness Time Seen by Provider: 15:30 Initial Comments PT STATES SHE IS 32 WEEKS ( WAS SEEN IN OB DEPT--PT STATES THE ONLY THING DONE THERE WAS CHECK OF FHT'S --NOT PLACED ON MONITOR, AND NO TESTS DONE, THEN SENT DOWN HERE FOR FURTHER EVALUATION) PT STATES SHE "IS MORE SHORT OF BREATH AND MORE EXHAUSTED THAN NORMAL" C/O HANDS AND FINGERS AND ANTERIOR THIGHS WITH NUMBNESS AND TINGLING OFF AND ON , TODAY HAD BURNING IN ANTERIOR THIGHS SYMPTOMS ONGOING FOR WEEKS TO MONTHS HAS SEEN HER OB, DR. ELY FOR THIS PROBLEM, NO TESTS, NO RX AND NO DX LAST SEEN 2 WEEKS AGO FOR ROUTINE OB EXAM, AND HAS APPOINTMENT ON Friday FOR OB CARE--"DIDN'T WANT TO WAIT" HAS NOT TAKEN ANYTHING FOR PAIN NO MOTOR DEFICITS NO HEADACHE NO NAUSEA/VOMITING NO VISION CHANGES NO ABDOMINAL PAIN NO FEVER/SWEATS/CHILLS OR RECENT ILLNESS NO VAGINAL BLEEDING NO SWELLING + ACTIVE MOVEMENT PT IS AB0 NO OTHER PROBLEMS WITH THIS PCP: DR. ELY Allergies and Home Medications Allergies Coded Allergies: Penicillins (Unverified Allergy, Mild, RASH, 07/13/13) PER LILLIAM RECEIVED ROCEPHIN IN ER 07/12; NO PROBLEMS SO FAR Home Medications Nitrofurantoin Monohyd/M-Cryst 100 Mg Capsule, 100 MG PO BID, #20 Prescribed by: DEYSI PRIEST on 07/18/17 1651 Vit W-Ca,Fe,FA(<1 mg) 1 Each Tablet, 1 EACH PO DAILY, (Reported) [Iron Supplement] , 1 PO DAILY, (Reported) Constitutional: see HPI EENTM: no symptoms reported Respiratory: see HPI Cardiovascular: no symptoms reported Gastrointestinal: no symptoms reported Genitourinary: no symptoms reported : Yes Musculoskeletal: no symptoms reported Skin: no symptoms reported Psychiatric/Neurological: See HPI Hematologic/Lymphatic: No Symptoms Reported Immunological/Allergic: no symptoms reported Past Jcpfcsv-Bmooun-Vgnrtx Hx Patient Social History Alcohol Use: Denies Use Recreational Drug Use: No Smoking Status: Never a Smoker 2nd Hand Smoke Exposure: No Recent Foreign Travel: No Contact w/Someone Who Travel: No Recent Hopitalizations: No Immunizations Up To Date Tetanus Booster (TDap): Unknown Seasonal Allergies Seasonal Allergies: No Surgeries HX Surgeries: No Respiratory Hx Respiratory Disorders: No Cardiovascular Hx Cardiac Disorders: No Neurological Hx Neurological Disorders: No Reproductive System : Yes Hx : 1 Hx Para: 0 Hx Total # of Abortions (Spona: 0 Hx Reproductive Disorders: No Sexually Transmitted Disease: No HIV/AIDS: No Female Reproductive Disorders: Denies Genitourinary Hx Genitourinary Disorders: Yes Genitourinary Disorders: Kidney Stones Gastrointestinal Hx Gastrointestinal Disorders: No Musculoskeletal Hx Musculoskeletal Disorders: No Endocrine Hx Endocrine Disorders: No HEENT HX ENT Disorders: No Cancer Hx Cancer: No Psychosocial Hx Psychiatric Problems: No Integumentary HX Skin/Integumentary Disorder: No Blood Transfusions Hx Blood Disorders: No Adverse Reaction to a Blood Tr: No Family Medical History Significant Family History: No Pertinent Family Hx Physical Exam Vital Signs Vital Sign - Last 12Hours 07/18/17 15:30 Temp 98.1 Pulse 79 Resp 24 B/P (MAP) 107/79 Pulse Ox 98 Capillary Refill : General Appearance: No Apparent Distress, WD/WN, Other (MALODOROUS) HEENT: PERRL/EOMI, TMs Normal, Normal ENT Inspection, Pharynx Normal Neck: Full Range of Motion, Normal Inspection, Non Tender, Supple, No Carotid Bruit, No JVD Respiratory: Normal Breath Sounds, No Accessory Muscle Use, No Respiratory Distress Cardiovascular: Regular Rate, Rhythm, No Edema, No JVD, No Murmur, Normal Peripheral Pulses Gastrointestinal: Normal Bowel Sounds, Non Tender, Soft, Other (GRAVID UTERUS, NON-TENDER) Back: Normal Inspection, No CVA Tenderness, No Vertebral Tenderness Extremity: Normal Capillary Refill, Normal Inspection, Normal Range of Motion, Non Tender, No Calf Tenderness, No Pedal Edema Neurologic/Psychiatric: Alert, Oriented x3, No Motor/Sensory Deficits, Normal Mood/Affect, market research assistant II-XII Norm as Tested, No Abnormal Cerebellar Tests Reflexes: 1+ Bicep (R), 1+ Bicep (L), 1+ Knee (R), 1+ Knee (L) Skin: Normal Color, Warm/Dry, Tattoos/Piercings (MULTIPLE TATTOOS AND PIERCINGS ) Progress/Results/Core Measures Results/Orders Lab Results Laboratory Tests Test 07/18/17 15:55 07/18/17 16:16 Range/Units White Blood Count 10.2 4.3-11.0 10^3/uL Red Blood Count 3.32 L 4.35-5.85 10^6/uL Hemoglobin 10.8 L 11.5-16.0 G/DL Hematocrit 32 L 35-52 % Mean Corpuscular Volume 96 80-99 FL Mean Corpuscular Hemoglobin 33 25-34 PG Mean Corpuscular Hemoglobin Concent 34 32-36 G/DL Red Cell Distribution Width 13.9 10.0-14.5 % Platelet Count 194 130-400 10^3/uL Mean Platelet Volume 9.4 7.4-10.4 FL Neutrophils (%) (Auto) 77 H 42-75 % Lymphocytes (%) (Auto) 14 12-44 % Monocytes (%) (Auto) 9 0-12 % Eosinophils (%) (Auto) 1 0-10 % Basophils (%) (Auto) 0 0-10 % Neutrophils # (Auto) 7.8 1.8-7.8 X 10^3 Lymphocytes # (Auto) 1.4 1.0-4.0 X 10^3 Monocytes # (Auto) 0.9 0.0-1.0 X 10^3 Eosinophils # (Auto) 0.1 0.0-0.3 10^3/uL Basophils # (Auto) 0.0 0.0-0.1 10^3/uL Sodium Level 139 135-145 MMOL/L Potassium Level 3.6 3.6-5.0 MMOL/L Chloride Level 110 H 98-107 MMOL/L Carbon Dioxide Level 20 L 21-32 MMOL/L Anion Gap 9 5-14 MMOL/L Blood Urea Nitrogen 7 7-18 MG/DL Creatinine 0.54 L 0.60-1.30 MG/DL Estimat Glomerular Filtration Rate > 60 BUN/Creatinine Ratio 13 Glucose Level 105 70-105 MG/DL Calcium Level 9.4 8.5-10.1 MG/DL Magnesium Level 1.6 L 1.8-2.4 MG/DL Total Bilirubin 0.2 0.1-1.0 MG/DL Aspartate Amino Transf (AST/SGOT) 16 5-34 U/L Alanine Aminotransferase (ALT/SGPT) 19 0-55 U/L Alkaline Phosphatase 69 40-136 U/L Total Protein 6.0 L 6.4-8.2 GM/DL Albumin 3.4 3.2-4.5 GM/DL TSH Conception Testing 1.14 0.35-4.94 UIU/ML Urine Color YELLOW Urine Clarity CLEAR Urine pH 7 5-9 Urine Specific [place] 1.015 L 1.016-1.022 Urine Protein NEGATIVE NEGATIVE Urine Glucose (UA) NEGATIVE NEGATIVE Urine Ketones NEGATIVE NEGATIVE Urine Nitrite NEGATIVE NEGATIVE Urine Bilirubin NEGATIVE NEGATIVE Urine Urobilinogen NORMAL NORMAL MG/DL Urine Leukocyte Esterase 2+ H NEGATIVE Urine RBC (Auto) NEGATIVE NEGATIVE Urine RBC NONE /HPF Urine WBC 2-5 /HPF Urine Squamous Epithelial Cells 25-50 H /HPF Urine Crystals PRESENT H /LPF Urine Amorphous Sediment MOD IAN URATES H /LPF Urine Bacteria FEW H /HPF Urine Casts NONE /LPF Urine Mucus NEGATIVE /LPF Urine Culture Indicated NO Urine Opiates Screen NEGATIVE NEGATIVE Urine Oxycodone Screen NEGATIVE NEGATIVE Urine Methadone Screen NEGATIVE NEGATIVE Urine Propoxyphene Screen NEGATIVE NEGATIVE Urine Barbiturates Screen NEGATIVE NEGATIVE Ur Tricyclic Antidepressants Screen NEGATIVE NEGATIVE Urine Phencyclidine Screen NEGATIVE NEGATIVE Urine Amphetamines Screen NEGATIVE NEGATIVE Urine Methamphetamines Screen NEGATIVE NEGATIVE Urine Benzodiazepines Screen NEGATIVE NEGATIVE Urine Cocaine Screen NEGATIVE NEGATIVE Urine Cannabinoids Screen NEGATIVE NEGATIVE Micro Results Microbiology 07/18/17 Urine Culture - Preliminary, Resulted My Orders Orders - ZAYDALAURAA K DO Saline Lock/Iv-Start (07/18/17 15:36) Cbc With Automated Diff (07/18/17 15:36) Comprehensive Metabolic Panel (07/18/17 15:36) Magnesium (07/18/17 15:36) Thyroid Analyzer (07/18/17 15:36) Ua Culture If Indicated (07/18/17 15:36) Drug Screen Stat (Urine) (07/18/17 15:44) Urine Culture (07/18/17 16:43) Vital Signs/I&O Departure Impression Impression: Primary Impression: Paresthesias Additional Impressions: 32 weeks gestation of UTI (urinary tract infection) in in third trimester Disposition: 01 HOME, SELF-CARE Condition: Stable Departure-Patient Inst. Referrals: BERNARDO ELY MD (PCP/Family) Primary Care Physician Patient Instructions: Avoiding Infections in , How to Adapt to Physical Changes During , Paresthesias (DC), - The Eighth Month, Urinary Tract Infection, Adult (DC) Add. Discharge Instructions: LOTS OF CLEAR LIQUIDS--NO COFFEE, POP OR TEA FOLLOW UP WITH DR. ELY ON FRIDAY SCHEDULED All discharge instructions reviewed with patient and/or family. Voiced understanding. Scripts Nitrofurantoin Monohyd/M-Cryst (Macrobid 100 mg Capsule) 100 Mg Capsule 100 MG PO BID, #20 CAP Prov: DEYSI PRIEST DO 07/18/17 DEYSI PRIEST DO Jul 18, 2017 15:50
[2017-07-18 16:02] LABS: BASOPHILS % (AUTO) 0 % (0-10); EOSINOPHILS # (AUTO) 0.1 10^3/uL (0.0-0.3); EOSINOPHILS % (AUTO) 1 % (0-10); LYMPHOCYTES # (AUTO) 1.4 X 10^3 (1.0-4.0); LYMPHOCYTES % (AUTO) 14 % (12-44); MEAN CORPUSCULAR HEMOGLOBIN 33 PG (25-34); MEAN CORPUSCULAR HGB CONC 34 G/DL (32-36); MEAN CORPUSCULAR VOLUME 96 FL (80-99); MEAN PLATELET VOLUME 9.4 FL (7.4-10.4); MONOCYTES # (AUTO) 0.9 X 10^3 (0.0-1.0); MONOCYTES % (AUTO) 9 % (0-12); NEUTROPHILS # (AUTO) 7.8 X 10^3 (1.8-7.8); NEUTROPHILS % (AUTO) 77 % (42-75); PLATELET COUNT 194 10^3/uL (130-400); RED BLOOD COUNT 3.32 10^6/uL (4.35-5.85); RED CELL DISTRIBUTION WIDTH 13.9 % (10.0-14.5); WHITE BLOOD COUNT 10.2 10^3/uL (4.3-11.0)
[2017-07-18 16:21] LABS: BILIRUBIN,URINE NEGATIVE (NEGATIVE); KETONES,URINE NEGATIVE (NEGATIVE); LEUKOCYTE ESTERASE ,URINE 2+ (NEGATIVE); NITRITE,URINE NEGATIVE (NEGATIVE); PH,URINE 7 (5-9); PROTEIN,URINE NEGATIVE (NEGATIVE); UROBILINOGEN,URINE NORMAL (NORMAL)
[2017-07-18 16:22] LABS: ALANINE AMINOTRANSFERASE 19 U/L (0-55); ALBUMIN 3.4 GM/DL (3.2-4.5); ANION GAP 9 MMOL/L (5-14); ASPARTATE AMINO TRANSFERASE 16 U/L (5-34); BILIRUBIN,TOTAL 0.2 MG/DL (0.1-1.0); BLOOD UREA NITROGEN 7 MG/DL (7-18); BUN/CREATININE RATIO 13; CALCIUM 9.4 MG/DL (8.5-10.1); CARBON DIOXIDE 20 MMOL/L (21-32); CHLORIDE 110 MMOL/L (98-107); CREATININE SERUM 0.54 MG/DL (0.60-1.30); GFR ESTIMATED > 60; GLUCOSE 105 MG/DL (70-105); MAGNESIUM 1.6 MG/DL (1.8-2.4); POTASSIUM 3.6 MMOL/L (3.6-5.0); SODIUM 139 MMOL/L (135-145)
[2017-07-18 16:38] LABS: SQUAMOUS EPITHELIAL CELL,UR 25-50 /HPF
[2017-07-18] MEDS ORDERED: NITR-65 PO ×2 (16:47→16:51)
[2017-07-18 17:01] VITALS: BP 107/79
== END 2017-07-18 17:01 | disposition home or self-care (01) ==
LOC: EDUNIT# 15:27 → ER 15:29
DX: O23.43 Unspecified infection of urinary tract in pregnancy, third trimester (principal); O99.89 Other specified diseases and conditions complicating pregnancy, childbirth and the puerperium; R20.2 Paresthesia of skin; Z87.442 Personal history of urinary calculi; Z3A.32 32 weeks gestation of pregnancy
CPT/HCPCS: 36415; 80053; 80306; 81000; 83735; 84443; 85025; 87088; 99283

== ENCOUNTER 2017-09-14 18:50 | Inpatient (IN) | payer MEDICAID ==
[~2017-09-14] VITALS: Ht 162.6 cm; Wt 80.8 kg
[~2017-09-14 18:50] MED LIST changes: +IRON SUPPLEMENT PO
[2017-09-14] MEDS ORDERED: D5 LR IV SOLUTION 1,000 ML IV ONE (19:08)
[2017-09-14 19:20] VITALS: BP 118/63
[2017-09-14] MEDS ORDERED: MINERAL OIL CONCENTRATE 99.9% 15 ML UDC TOP PRN (19:30)
[2017-09-14] MEDS ORDERED: DINOPROSTONE 10 MG (CERVIDIL) INSERT PV ONE (19:30)
[2017-09-14] MEDS: D5 LR IV SOLUTION 1,000 ML IV SCH (19:30)
[2017-09-14] MEDS ORDERED: ZOLPIDEM 5 MG (AMBIEN) TAB PO PRN (19:30)
[2017-09-14 19:46] LABS: BASOPHILS % (AUTO) 0 % (0-10); EOSINOPHILS # (AUTO) 0.1 10^3/uL (0.0-0.3); EOSINOPHILS % (AUTO) 1 % (0-10); LYMPHOCYTES # (AUTO) 1.8 X 10^3 (1.0-4.0); LYMPHOCYTES % (AUTO) 19 % (12-44); MEAN CORPUSCULAR HEMOGLOBIN 32 PG (25-34); MEAN CORPUSCULAR HGB CONC 34 G/DL (32-36); MEAN CORPUSCULAR VOLUME 95 FL (80-99); MEAN PLATELET VOLUME 10.5 FL (7.4-10.4); MONOCYTES # (AUTO) 1.1 X 10^3 (0.0-1.0); MONOCYTES % (AUTO) 12 % (0-12); NEUTROPHILS # (AUTO) 6.4 X 10^3 (1.8-7.8); NEUTROPHILS % (AUTO) 68 % (42-75); PLATELET COUNT 208 10^3/uL (130-400); RED BLOOD COUNT 3.69 10^6/uL (4.35-5.85); WHITE BLOOD COUNT 9.4 10^3/uL (4.3-11.0)
[2017-09-14] MEDS ORDERED: CATHETER FLUSH 10 ML SYR IV SCH (22:00)
[2017-09-14] MEDS: BUTORPHANOL INJ 2 MG/ML (STADOL) VIAL IV PRN (22:26)
[2017-09-14 23:31] VITALS: BP 100/56
[2017-09-15] VITALS (36 sets, daily range): BP systolic 92–166; BP diastolic 49–87
[2017-09-15] MEDS: D5 LR IV SOLUTION 1,000 ML IV SCH ×2 (00:28→08:29)
[2017-09-15] MEDS: BUTORPHANOL INJ 2 MG/ML (STADOL) VIAL IV PRN ×2 (01:34→02:59)
[2017-09-15] MEDS ORDERED: INFLUENZA TRIvalent 2017-2018 0.5 ML/45 MCG SYR IM ONE (07:15)
[2017-09-15] MEDS ORDERED: OXYTOCIN/NORMAL SALINE 500 ML IV SCH ×3 (07:16→15:21)
--- NOTE | 2017-09-15 07:16 | History & Physical-OB ---
OB - Chief Complaint & HPI Date/Time Date of Admission: Date of Admission: Sep 14, 2017 at 18:50 Time Seen by Provider: 07:00 Chief Complaint/History OB-Reason for Admission/Chief: Induction of Labor Hx : 1 Hx Para: 0 Expected Date of Delivery: Sep 13, 2017 Gestational Age in Weeks: 40 Admission Nurse Assessment Rev: Yes History of Labs GBS negative Allergies and Home Medications Allergies Coded Allergies: Penicillins (Unverified Allergy, Mild, RASH, 07/13/13) PER LILLIAM RECEIVED ROCEPHIN IN ER 07/12; NO PROBLEMS SO FAR Home Medications Vit W-Ca,Fe,FA(<1 mg) 1 Each Tablet, 1 EACH PO DAILY, (Reported) [Iron Supplement] , 1 PO DAILY, (Reported) OB - History Hx of Present Care: Yes Ultrasounds: Normal mid trimester US Obstetrical Complications: None Medical Complications: None Delivery History Hx Blood Disorders: No Adverse Rxn to Tranfusion: No Patient Past Medical History No chronic medical problems Social History/Family History HIV/AIDS: No Recent Infectious Disease Expo: No Sexually Transmitted Disease: No Alcohol Use: Denies Use Recreational Drug Use: No 2nd Hand Smoke Exposure: No Immunizations Hepatitis A: No Hepatitis B: No Tetanus Booster (TDap): Unknown OB - Admission Exam Physical Exam Vitals: Vital Signs 09/15/17 04:32 Temp 98.2 Pulse 77 Resp 18 B/P (MAP) 99/58 O2 Delivery Room Air HEENT: Moist Membranes Heart: Rhythm Normal Lungs: Clear Abdomen: Gravid Cervical Dilatation: 2cm (on admission) Effacement: 50% Station: -3 Membranes: Intact Heart Rate: 130's Accelerations: Accelerations Present Decelerations: No Decelerations Short Term Variability: Present Applications Tester Variability: Average (6-25) Contractions on Admission: >10 Minutes Apart Bello Scoring Tool (Modified) Dilation (cm): 1-2cm (1) Effacement (%): 31-51% (1) Descent/Station: -3 (0) Cervix Consistency: Medium(1) Cervix Position: Middle/Mid-Position (1) Bello Score: 4 Labs Laboratory Tests Test 09/14/17 19:30 Range/Units White Blood Count 9.4 4.3-11.0 10^3/uL Red Blood Count 3.69 L 4.35-5.85 10^6/uL Hemoglobin 11.8 11.5-16.0 G/DL Hematocrit 35 35-52 % Mean Corpuscular Volume 95 80-99 FL Mean Corpuscular Hemoglobin 32 25-34 PG Mean Corpuscular Hemoglobin Concent 34 32-36 G/DL Red Cell Distribution Width 14.0 10.0-14.5 % Platelet Count 208 130-400 10^3/uL Mean Platelet Volume 10.5 H 7.4-10.4 FL Neutrophils (%) (Auto) 68 42-75 % Lymphocytes (%) (Auto) 19 12-44 % Monocytes (%) (Auto) 12 0-12 % Eosinophils (%) (Auto) 1 0-10 % Basophils (%) (Auto) 0 0-10 % Neutrophils # (Auto) 6.4 1.8-7.8 X 10^3 Lymphocytes # (Auto) 1.8 1.0-4.0 X 10^3 Monocytes # (Auto) 1.1 H 0.0-1.0 X 10^3 Eosinophils # (Auto) 0.1 0.0-0.3 10^3/uL Basophils # (Auto) 0.0 0.0-0.1 10^3/uL OB - Assessment/Plan/Diagnosis Assessment Assessment: induction of labor (at 40 weeks gestation) Plan Plan: Induction (by cervidil) Other Plan desires epidural BERNARDO ELY MD Sep 15, 2017 07:16
[2017-09-15] MEDS ORDERED: SUFENTA 0.6MCG/ML BUPIVA 0.125 100 ML ONE (08:19)
[2017-09-15] MEDS ORDERED: BUPIVACAINE 0.25% 30 ML (SENSORCAINE) VIAL ONE (08:33)
[2017-09-15] MEDS ORDERED: LIDOCAINE PF 2% 5 ML (XYLOCAINE) VIAL ONE (08:33)
[2017-09-15] MEDS ORDERED: fentaNYL INJECTION 100 MCG/2 ML AMP ONE (08:34)
[2017-09-15] MEDS ORDERED: LACTATED RINGERS 1,000 ML IV SCH (09:03)
[2017-09-15] MEDS ORDERED: ONDANSETRON 4 MG/2 ML (SDV) Z0FRAN IV PRN (09:15)
[2017-09-15] MEDS ORDERED: NALOXONE 0.4 MG/ML 1 ML (NARCAN) VIAL IV PRN (09:15)
[2017-09-15] MEDS ORDERED: diphenhydrAMINE 50 MG/ML INJ (BENADRYL) IV PRN (09:15)
[2017-09-15] MEDS ORDERED: EPIDURAL (SUFENTA 0.6MCG/ML BUPIVA 0.125%) 100 ML BAG EPI PRN (09:15)
[2017-09-15] MEDS ORDERED: LIDOCAINE/EPI 2% 1:200,00 (XYLOCAINE) 10 ML VIAL ONE (12:25)
[2017-09-15] MEDS ORDERED: IBUPROFEN 600 MG (MOTRIN) TAB PO SCH ×2 (15:30)
[2017-09-15] MEDS ORDERED: BENZOCAINE/MENTHOL (DERMOPLAST) 56 ML CAN TP PRN ×3 (15:30→15:45)
[2017-09-15] MEDS ORDERED: MEASLES,MUMPS,RUBELLA 1 EA INJ SQ ONE (15:30)
[2017-09-15] MEDS ORDERED: DIBUCAINE (NUPERCAINAL) 1% OINT 30 GM TOP PRN ×2 (15:30→15:45)
[2017-09-15] MEDS ORDERED: TETANUS,DIPTH,PERTUSS P/F (BOOSTRIX) 0.5 ML VIAL IM ONE (15:30)
[2017-09-15] MEDS ORDERED: HYDROcodone/APAP 5 MG/325 MG (LORTAB) TAB PO PRN ×2 (15:30→15:45)
[2017-09-15] MEDS ORDERED: APAP 300 MG/CODEINE 30 MG (TYLENOL #3) TAB PO PRN (15:30)
[2017-09-15] MEDS ORDERED: WITCH HAZEL(TUCKS) 40 EA JAR TOP PRN ×3 (15:30→15:45)
--- NOTE | 2017-09-15 17:00 | OB Labor & Delivery Record ---
L&D History Date of Service Date of Service: Sep 15, 2017 History Expected Date of Delivery: Sep 13, 2017 Gestational Age in Weeks: 40 Hx : 1 Hx Para: 0 Complications Events: Routine care Operative Indications (Cesarea: N/A-Vaginal Delivery (with suction assist) Intrapartal Events: Ineffective Pushing L&D Stage1 Stage One Onset of Labor - Date: Sep 15, 2017 Onset of Labor - Time: 07:00 Monitors and Tracing Monitor Mode: Internal Heart Rate: 150 Monitor Accelerations: Uniform Monitor Decelerations: None Station: -3 Short Term Variability: Present Presentation: Vertex Vital Signs VS - Last 72 Hours, by Label 09/14/17 09/14/17 09/15/17 09/15/17 19:20 23:31 04:32 08:30 Temp 99.0 96.4 98.2 97.9 Pulse 86 82 77 Resp 18 18 18 B/P (MAP) 118/63 100/56 99/58 O2 Delivery Room Air Room Air Room Air 09/15/17 09/15/17 09/15/17 09/15/17 08:55 08:58 09:00 09:03 Pulse 102 96 113 113 Resp 20 20 20 20 B/P (MAP) 124/61 116/51 105/55 118/59 Pulse Ox 100 100 O2 Delivery Room Air Room Air Room Air Room Air 09/15/17 09/15/17 09/15/17 09/15/17 09:06 09:09 09:30 09:45 Temp 97.2 Pulse 139 113 142 130 Resp 20 20 20 20 B/P (MAP) 119/57 100/52 97/53 108/51 Pulse Ox 99 99 100 99 O2 Delivery Room Air Room Air Room Air Room Air 09/15/17 09/15/17 09/15/17 09/15/17 10:00 10:15 10:30 10:45 Pulse 101 90 82 88 Resp 20 20 20 20 B/P (MAP) 104/66 107/49 100/58 108/60 Pulse Ox 100 O2 Delivery Non Rebreather Non Rebreather Room Air Room Air O2 Flow Rate 15.00 15.00 09/15/17 09/15/17 09/15/17 09/15/17 11:00 11:15 11:30 11:45 Pulse 101 121 97 88 Resp 20 20 20 20 B/P (MAP) 111/64 101/74 102/72 110/66 O2 Delivery Room Air Room Air Room Air Room Air 09/15/17 09/15/17 09/15/17 09/15/17 12:00 12:15 12:30 13:00 Pulse 104 106 144 130 Resp 20 20 20 20 B/P (MAP) 144/67 149/62 106/53 166/87 O2 Delivery Room Air Room Air Room Air Room Air 09/15/17 09/15/17 09/15/17 09/15/17 13:15 13:30 13:45 14:00 Pulse 76 Resp 20 B/P (MAP) 124/77 O2 Delivery Room Air Room Air Room Air Room Air Signs of Distress by FHT Signs of Distress no Rupture of Membranes Spontaneous Ruture of Membrane: No Amniotic Membrane Rupture Time: 705 Amniotic Membrane Fluid Desc.: Clear Vaginal Bleeding Description: None Induction/Anesthesia Epidural Cath Placement - Time: 851 L&D Stage2 Stage Two Stage II Date: Sep 15, 2017 Stage II Time: 14:04 Monitors and Tracing Monitor Mode: Internal Heart Rate: 150 Monitor Accelerations: Uniform Monitor Decelerations: Variable Stamp Collector Variability: Average (6-10) Short Term Variability: Present Position: Left Occiput Anterior Presentation: Vertex Signs of Distress by FHT Signs of Distress no Cord Descript/Complications Cord Vessel Description: 3 Vessels Delivery Type Infant Delivery Method: Low Vacuum Extraction Anterior Shoulder: Left Episiotomy/Perineal Laceration Laceraction(s)/Extensions: Yes Episiotomy Description: Midline Sutures Used: Vicryl Condition of Infant Delivery 1 minute Comment: 7 5 minute Comment: 9 Condition of Infant Condition of : Living Exam: No Observed Abnormalities Resuscitation Resuscitation: N/A - Spontaneous Resp L&D Stage3 Stage Three Stage III Date: Sep 15, 2017 Stage III Time: 14:09 Pictocin Pitocin ml/hr: 125 Placenta Delivery Placenta Delivery: Spontaneous Delivery Summary Summary Vaginal blood loss >500ml: No 300 Condition of Delivery Examined: Cervix Examined Post Hemorrhage: No Intervention Required no BERNARDO ELY MD Sep 15, 2017 17:00
[2017-09-15] MEDS: IBUPROFEN 600 MG (MOTRIN) TAB PO SCH (17:30)
[2017-09-15] MEDS ORDERED: CATHETER FLUSH 10 ML SYR IV SCH ×3 (22:00)
[2017-09-16 03:15] VITALS: BP 93/45
[2017-09-16] MEDS: IBUPROFEN 600 MG (MOTRIN) TAB PO SCH ×2 (03:30→13:30)
[2017-09-16 06:12] LABS: BASOPHILS % (AUTO) 0 % (0-10); EOSINOPHILS # (AUTO) 0.1 10^3/uL (0.0-0.3); EOSINOPHILS % (AUTO) 1 % (0-10); LYMPHOCYTES # (AUTO) 2.1 X 10^3 (1.0-4.0); LYMPHOCYTES % (AUTO) 18 % (12-44); MEAN CORPUSCULAR HEMOGLOBIN 32 PG (25-34); MEAN CORPUSCULAR HGB CONC 33 G/DL (32-36); MEAN CORPUSCULAR VOLUME 97 FL (80-99); MEAN PLATELET VOLUME 10.1 FL (7.4-10.4); MONOCYTES # (AUTO) 1.2 X 10^3 (0.0-1.0); MONOCYTES % (AUTO) 10 % (0-12); NEUTROPHILS # (AUTO) 8.4 X 10^3 (1.8-7.8); NEUTROPHILS % (AUTO) 72 % (42-75); PLATELET COUNT 172 10^3/uL (130-400); RED BLOOD COUNT 2.65 10^6/uL (4.35-5.85); WHITE BLOOD COUNT 11.7 10^3/uL (4.3-11.0)
[2017-09-16] MEDS ORDERED: FERROUS SULF 325 MG (IRON) TAB PO SCH ×2 (07:00→09:00)
[2017-09-16] MEDS ORDERED: PRENATAL VITAMIN 1 EA TAB PO SCH ×3 (07:00)
--- NOTE | 2017-09-16 07:49 | Progress Note (SOAP) ---
Subjective Date Seen by Provider: Sep 16, 2017 Time Seen by Provider: 07:20 Subjective/Events-last exam No major complaints. A little sore on perineum. Objective Exam Vital Signs Date Time Temp Pulse Resp B/P (MAP) Pulse Ox O2 Delivery O2 Flow Rate FiO2 09/15/17 19:45 98.1 91 18 92/68 98 Room Air 09/15/17 17:01 93 20 102/57 Room Air 09/15/17 16:46 90 20 102/60 Room Air 09/15/17 16:31 81 20 108/62 Room Air 09/15/17 16:16 93 20 108/58 Room Air 09/15/17 16:01 98 20 103/58 Room Air 09/15/17 15:45 94 20 95/54 Room Air 09/15/17 15:31 85 20 95/61 Room Air 09/15/17 15:16 101 20 101/59 Room Air 09/15/17 15:01 88 20 105/59 Room Air 09/15/17 14:46 75 20 120/56 Room Air 09/15/17 14:31 82 20 110/59 Room Air 09/15/17 14:17 86 20 117/54 Room Air 09/15/17 14:00 Room Air 09/15/17 13:45 Room Air 09/15/17 13:30 Room Air 09/15/17 13:15 76 20 124/77 Room Air 09/15/17 13:00 130 20 166/87 Room Air 09/15/17 12:30 144 20 106/53 Room Air 09/15/17 12:15 106 20 149/62 Room Air 09/15/17 12:00 104 20 144/67 Room Air 09/15/17 11:45 88 20 110/66 Room Air 09/15/17 11:30 97 20 102/72 Room Air 09/15/17 11:15 121 20 101/74 Room Air 09/15/17 11:00 101 20 111/64 Room Air 09/15/17 10:45 88 20 108/60 Room Air 09/15/17 10:30 82 20 100/58 Room Air 09/15/17 10:15 90 20 107/49 Non Rebreather 15.00 09/15/17 10:00 101 20 104/66 100 Non Rebreather 15.00 09/15/17 09:45 130 20 108/51 99 Room Air 09/15/17 09:30 142 20 97/53 100 Room Air 09/15/17 09:09 97.2 113 20 100/52 99 Room Air 09/15/17 09:06 139 20 119/57 99 Room Air 09/15/17 09:03 113 20 118/59 100 Room Air 09/15/17 09:00 113 20 105/55 100 Room Air 09/15/17 08:58 96 20 116/51 Room Air 09/15/17 08:55 102 20 124/61 Room Air 09/15/17 08:30 97.9 Capillary Refill : General Appearance: No Apparent Distress Respiratory: Lungs Clear Cardiovascular: Regular Rate, Rhythm Gastrointestinal: soft (with uterus firm) Results Lab Laboratory Tests 09/16/17 05:55: White Blood Count 11.7H, Red Blood Count 2.65L, Hemoglobin 8.5#L, Hematocrit 26L , Mean Corpuscular Volume 97, Mean Corpuscular Hemoglobin 32, Mean Corpuscular Hemoglobin Concent 33, Red Cell Distribution Width 14.0, Platelet Count 172, Mean Platelet Volume 10.1, Neutrophils (%) (Auto) 72, Lymphocytes (%) (Auto) 18 , Monocytes (%) (Auto) 10, Eosinophils (%) (Auto) 1, Basophils (%) (Auto) 0, Neutrophils # (Auto) 8.4H, Lymphocytes # (Auto) 2.1, Monocytes # (Auto) 1.2H, Eosinophils # (Auto) 0.1, Basophils # (Auto) 0.0 Assessment/Plan Assessment/Plan Assess & Plan/Chief Complaint 1. S/P day 1 -routine order PP -possible home this evening. Clinical Quality Measures DVT/VTE Risk/Contraindication: Risk Factor Score Per Nursin RFS Level Per Nursing on Admit: 1=Low/No VTE PPX BERNARDO ELY MD Sep 16, 2017 07:49
[2017-09-16 09:00] VITALS: BP 99/54
[2017-09-16] MEDS ORDERED: DOCUSATE CALCIUM 240 MG (SURFAK) CAP PO SCH (09:00)
[2017-09-16 13:30] VITALS: BP 115/81
--- NOTE | 2017-09-16 14:59 | Anesthesia-Regional Post-Op ---
Regional Patient Condition Mental Status: Alert, Oriented x3 Circulation: Same as Pre-Op Headache: Absent Sensation: Full Recovery Motor Block: Absent Post Op Complications Complications None Follow Up Care/Instructions Patient Instructions None needed. Anesthesia/Patient Condition Patient is doing well, no complaints, stable vital signs, no apparent adverse anesthesia problems. VIK MORRIS DO Sep 16, 2017 14:59
[2017-09-16] MEDS ORDERED: DOCUSATE SODIUM 100 MG (COLACE) CAP PO SCH (21:00)
== END 2017-09-16 17:10 | disposition home or self-care (01) | DRG 775 ==
LOC: LDRP 18:50
PROVIDERS: ADMIT Family Medicine; ATTEND Family Medicine
PROC: 10D07Z6 Extraction of Products of Conception, Vacuum, Via Natural or Artificial Opening (ICD-10-PCS; principal; 2017-09-15)
PROC: 0W8NXZZ Division of Female Perineum, External Approach (ICD-10-PCS; 2017-09-15)
DX: O75.89 Other specified complications of labor and delivery (principal); Z3A.40 40 weeks gestation of pregnancy; Z37.0 Single live birth
CPT/HCPCS: 36415; 85025; 86850; 86900; 86901

== ENCOUNTER → 2018-12-10 | Outpatient (CLI) | payer MEDICAID ==
--- NOTE | 2018-12-10 12:23 | Diagnostic Imaging Report ---
PROCEDURE: US OB SINGLE FETUS <14 WKS. TECHNIQUE: Multiple real-time grayscale images were obtained over the gravid uterus in various projections. INDICATION: dating. FINDINGS: There is an intrauterine gestational sac containing a pole. Marlow-rump length measurement is approximately 17 mm consistent with 8 weeks 1 day gestation. heart rate was recorded at 169 beats per minute. Gestational sac shape is within normal limits. No jim-gestational sac hemorrhage is seen. The ovaries were obscured by bowel gas. IMPRESSION: Single live IUP 8 weeks 1 day gestational age. The estimated date of confinement sonographically is 07/21/2019. Dictated by: Dictated on workstation # [id number]
== END ==
LOC: RAD 09:23
PROVIDERS: ATTEND Family Medicine
DX: Z34.91 Encounter for supervision of normal pregnancy, unspecified, first trimester (principal); Z3A.08 8 weeks gestation of pregnancy
CPT/HCPCS: 76801

== ENCOUNTER → 2019-03-01 | Outpatient (CLI) | payer MEDICAID ==
--- NOTE | 2019-03-01 14:53 | Diagnostic Imaging Report ---
INDICATION: survey. TECHNIQUE: Multiple real-time grayscale images were obtained over the gravid uterus. COMPARISON: 12/10/2018. FINDINGS: There is a single live fetus in a transverse presentation with head to maternal right. heart rate was recorded at 153 beats per minute. Placenta is posterior. Amniotic fluid volume is normal. Cervical length is 4.2 cm. survey demonstrates kidneys, bladder and stomach to be unremarkable. The brain is unremarkable. There is a four-chambered heart. There is a three-vessel cord with normal insertion. The spine is unremarkable. Biometrical measurements are as follows: Biparietal 4.51 cm, age 19 weeks 5 days. Head circumference 17.21 cm, age 19 weeks 6 days. Abdominal circumference 14.93 cm, age 20 weeks 2 days. Femur length 3.17 cm, age 19 weeks 6 days. Sonographic estimate age: 20 weeks 0 days. Sonographic estimated date of delivery: 07/19/2019. Estimated Weight: 326 gm (+/- 48 gm). LMP percentile: 62%. heart rate: 153 beats per minute. number: 1 of 1. IMPRESSION: Single live IUP, 20 weeks zero days' gestational age, demonstrating normal interval growth when compared with prior ultrasound. No complicating features are identified. Dictated by: Dictated on workstation # [id number]
== END ==
LOC: RAD 13:27
PROVIDERS: ATTEND Family Medicine
DX: Z36.89 Encounter for other specified antenatal screening (principal); Z3A.20 20 weeks gestation of pregnancy
CPT/HCPCS: 76805

== ENCOUNTER 2019-05-14 19:59 | Outpatient (CLI) | payer MEDICAID ==
[~2019-05-14] VITALS: Ht 162.6 cm; Wt 71.3 kg
--- NOTE | 2019-05-14 20:05 | NUR ---
SHANTANU GUZMAN presented to unit via ambulatory from ED, accompanied by self, with c/o VOMITING/ABD PAIN. SHANTANU GUZMAN weighed, gowned, voided, and to bed. EFHM and TOCO applied, VS taken per HHEADY RN. SHANTANU GUZMAN oriented to bed controls, call light, TV, heat, and A/C controls per HHEADY RN. Pt up changing and supplying u/a assessments to follow per HHHEADY RN.
[2019-05-14 20:20] VITALS: BP 109/57
[2019-05-14 20:44] LABS: BILIRUBIN,URINE NEGATIVE (NEGATIVE); CLARITY,URINE CLEAR; COLOR,URINE YELLOW; GLUCOSE, URINE (UA) NEGATIVE (NEGATIVE); KETONES,URINE 4+ (NEGATIVE); LEUKOCYTE ESTERASE ,URINE 2+ (NEGATIVE); NITRITE,URINE NEGATIVE (NEGATIVE); PH,URINE 6 (5-9); PROTEIN,URINE 2+ (NEGATIVE); UROBILINOGEN,URINE 1 MG/DL (NORMAL)
[2019-05-14 20:52] LABS: AMORPHOUS SEDIMENT,UR FEW AMOR URATES /LPF; BACTERIA,URINE FEW /HPF; RBC,URINE 0-2 /HPF; WBC,URINE 0-2 /HPF
--- NOTE | 2019-05-14 21:00 | NUR ---
pt vomiting large amount of bile looking emesis.
--- NOTE | 2019-05-14 21:03 | NUR ---
notified of pt's arrival and complaint, tracing and lab results reported. new orders received.
[2019-05-14] MEDS ORDERED: ONDANSETRON 4 MG/2 ML (SDV) Z0FRAN ONE (21:04)
[2019-05-14] MEDS ORDERED: D5 LR IV SOLUTION 1,000 ML IV ONE (21:04)
[2019-05-14] MEDS ORDERED: D5 LR IV SOLUTION 1,000 ML IV SCH (21:15)
[2019-05-14] MEDS ORDERED: ONDANSETRON 4 MG/2 ML (SDV) Z0FRAN IVP ONE (21:15)
[2019-05-14] MEDS ORDERED: PANTOPRAZOLE 40 MG (PROTONIX) TAB PO ONE (21:30)
[2019-05-14] MEDS ORDERED: cefTRIAXone 1,000 MG IV (ROCEPHIN) VIAL ONE (22:28)
[2019-05-14] MEDS ORDERED: WATER (STERILE) FOR INJECTION 10 ML ONE (22:28)
[2019-05-14] MEDS ORDERED: cefTRIAXone FOR IV USE 1,000 MG in WATER (STERILE) FOR INJECTION 10 ML IV ONE (22:30)
[2019-05-14] MEDS ORDERED: ANTACID SUSP 30 ML UDC (MYLANTA) PO ONE (22:30)
[2019-05-14 23:00] VITALS: BP 113/55
--- NOTE | 2019-05-14 23:30 | NUR ---
Pt reports lower abdominal pain is better along with heartburn. pt has been able to drink 8oz of water with no emesis
--- NOTE | 2019-05-14 23:38 | NUR ---
called to unit to check on status of pt. update given. discharge orders received.
[2019-05-14] MEDS ORDERED: ONDN4T PO (23:45)
--- NOTE | 2019-05-15 | NUR ---
Discharge instructions verbalized with pt. acid reflux diet verbalized with pt. pt will follow up with in office on Friday.
--- NOTE | 2019-05-19 15:45 | Physician Query-Final Dx ---
LESLIE MAXWELL 05/19/19 1545: Clinic Account Progress/Dx Physician Query: Please give diagnosis Need dx and weeks of gestation Date of Service May 14, 2019 at 19:59 BERNARDO ELY MD 06/01/19 1059: Clinic Account Progress/Dx DIAGNOSIS: Diagnosis 1. Dehydration 2. Enteritis 3. IUP at 30w3d gestation LESLIE MAXWELL May 19, 2019 15:45 BERNARDO ELY MD Jun 01, 2019 10:59
== END 2019-05-15 ==
LOC: LDRP 19:59 → WSo 19:59
PROVIDERS: ATTEND Family Medicine
DX: O99.283 Endocrine, nutritional and metabolic diseases complicating pregnancy, third trimester (principal); E86.0 Dehydration; O99.613 Diseases of the digestive system complicating pregnancy, third trimester; K52.9 Noninfective gastroenteritis and colitis, unspecified; Z3A.30 30 weeks gestation of pregnancy
CPT/HCPCS: 81000; 87088; 96361; 96374; 96375; 99214

== ENCOUNTER 2019-05-18 07:04 | Outpatient (CLI) | payer MEDICAID ==
[~2019-05-18] VITALS: Ht 162.6 cm; Wt 68.0 kg
[~2019-05-18 07:04] MED LIST changes: +ONDN4T PO
--- NOTE | 2019-05-18 07:10 | NUR ---
Pt arrived to unit via wheelchair from ED. wt obtained and wheeled to room 317, gowned and urine sample obtained. To bed and oriented to room, call light and surroundings. bed controls explained, plan of care reviewed with pt. pt c/o nausea vomitting for 7days, decreased movement and wt loss of 20lbs since last Friday.
[2019-05-18 07:23] VITALS: BP 111/73
--- NOTE | 2019-05-18 07:25 | NUR ---
Dr Romero to bedside to discuss plan of care and assess pt. New orders received.
[2019-05-18] MEDS ORDERED: NS IV 1000 ML 1,000 ML ONE (07:34)
[2019-05-18] MEDS ORDERED: NS IV 1000 ML 1,000 ML IV ONE (07:45)
[2019-05-18] MEDS ORDERED: PANTOPRAZOLE 40 MG (PROTONIX) TAB PO NR (08:00)
[2019-05-18 08:05] LABS: BASOPHILS # (AUTO) 0.1 10^3/uL (0.0-0.1); BASOPHILS % (AUTO) 0 % (0-10); EOSINOPHILS % (AUTO) 0 % (0-10); HEMATOCRIT 43 % (35-52); HEMOGLOBIN 14.9 G/DL (11.5-16.0); LYMPHOCYTES # (AUTO) 1.2 X 10^3 (1.0-4.0); LYMPHOCYTES % (AUTO) 6 % (12-44); MEAN CORPUSCULAR HEMOGLOBIN 33 PG (25-34); MEAN CORPUSCULAR HGB CONC 35 G/DL (32-36); MEAN CORPUSCULAR VOLUME 94 FL (80-99); MEAN PLATELET VOLUME 9.7 FL (7.4-10.4); MONOCYTES # (AUTO) 1.4 X 10^3 (0.0-1.0); MONOCYTES % (AUTO) 7 % (0-12); NEUTROPHILS # (AUTO) 16.7 X 10^3 (1.8-7.8); NEUTROPHILS % (AUTO) 86 % (42-75); PLATELET COUNT 266 10^3/uL (130-400); RED CELL DISTRIBUTION WIDTH 14.4 % (10.0-14.5); WHITE BLOOD COUNT 19.4 10^3/uL (4.3-11.0)
[2019-05-18] MEDS ORDERED: PROM25TA14 PO (08:08)
[2019-05-18] MEDS ORDERED: PANT20TA2 PO (08:08)
[2019-05-18 08:22] LABS: ALANINE AMINOTRANSFERASE 12 U/L (0-55); ALBUMIN 4.7 GM/DL (3.2-4.5); ALKALINE PHOSPHATASE 109 U/L (40-136); BILIRUBIN,TOTAL 0.5 MG/DL (0.1-1.0); BUN/CREATININE RATIO 8; CALCIUM 10.7 MG/DL (8.5-10.1); CHLORIDE 107 MMOL/L (98-107); GFR ESTIMATED > 60; GLUCOSE 102 MG/DL (70-105); POTASSIUM 4.3 MMOL/L (3.6-5.0); SODIUM 138 MMOL/L (135-145); TOTAL PROTEIN 8.7 GM/DL (6.4-8.2)
[2019-05-18] MEDS: PROMETHAZINE INJ 25 MG/ML (PHENERGAN) AMP IVP PRN ×4 (08:26→23:10)
[2019-05-18 08:45] LABS: CARBON DIOXIDE 8 MMOL/L (21-32)
[2019-05-18 08:58] LABS: BAND NEUTROPHILS 3 %; BASOPHILS % (MANUAL) 0 %; EOSINOPHILS % (MANUAL) 0 %; LYMPHOCYTES % (MANUAL) 9 %; MONOCYTES % (MANUAL) 5 %; NEUTROPHILS % (MANUAL) 83 %; RBC MORPH NORMAL
[2019-05-18] MEDS: NS IV 1000 ML 1,000 ML IV SCH ×3 (09:00→20:00)
--- NOTE | 2019-05-18 09:27 | NUR ---
Dr Romero called to report labs, no answer, message left to return call.
[2019-05-18 09:40] VITALS: BP 120/70
[2019-05-18 09:45] LABS: BILIRUBIN,URINE NEGATIVE (NEGATIVE); CLARITY,URINE SLIGHTLY CLOUDY; COLOR,URINE YELLOW; GLUCOSE, URINE (UA) NEGATIVE (NEGATIVE); KETONES,URINE 4+ (NEGATIVE); LEUKOCYTE ESTERASE ,URINE 3+ (NEGATIVE); NITRITE,URINE NEGATIVE (NEGATIVE); PH,URINE 6 (5-9); PROTEIN,URINE 3+ (NEGATIVE); UROBILINOGEN,URINE NORMAL (NORMAL)
--- NOTE | 2019-05-18 09:46 | NUR ---
Dr anthony called and notified of lab results, maternal tachycardia, bp normal. No new orders received.
[2019-05-18 09:54] LABS: BACTERIA,URINE MODERATE /HPF; RBC,URINE 0-2 /HPF; SQUAMOUS EPITHELIAL CELL,UR 25-50 /HPF; WBC,URINE 25-50 /HPF
[2019-05-18 10:40] VITALS: BP 121/76
--- NOTE | 2019-05-18 10:55 | NUR ---
Dr Romero called to result the labs, no answer, message left.
--- NOTE | 2019-05-18 11:00 | NUR ---
Dr Romreo called and notified of ua lab result. New orders received.
--- NOTE | 2019-05-18 11:15 | NUR ---
Pt transferred to room 302 via wheelchair with assist, up to void prior to transfer. To room 302 and then to bed. oriented to room, call light and surroundings. warm blanket given. ice chips and fresh ice water to bedside table.
[2019-05-18] MEDS ORDERED: cefTRIAXone FOR IV USE 1,000 MG in WATER (STERILE) FOR INJECTION 10 ML IV ONE (12:15)
--- NOTE | 2019-05-18 12:33 | NUR ---
Rn called to room, black colored fluid emesis noted approx 150ml. cool wash cloth given to pt.
[2019-05-18 12:40] VITALS: BP 120/74
--- NOTE | 2019-05-18 13:00 | NUR ---
75ml bile emesis.
--- NOTE | 2019-05-18 13:12 | NUR ---
Pt reports increased heartburn and requests medication
--- NOTE | 2019-05-18 13:40 | NUR ---
Dr anthony called back and new order received.
[2019-05-18] MEDS ORDERED: ANTACID SUSP 30 ML UDC (MYLANTA) PO NR (14:00)
--- NOTE | 2019-05-18 14:00 | NUR ---
Assisted up to void and then back to bed.
[2019-05-18] MEDS: ONDANSETRON 4 MG/2 ML (SDV) Z0FRAN IVP PRN ×2 (14:10→20:31)
[2019-05-18 16:05] VITALS: BP 122/68
--- NOTE | 2019-05-18 16:09 | NUR ---
Assisted up to void and then back to bed. Pt short of breath with getting up and down. vital signs obtained. monitor on for NST.
--- NOTE | 2019-05-18 16:32 | NUR ---
dR Ely TO PT BEDSIDE. DR ELY UPDATED ON PT SHORT OF BREATH WHEN UP TO BATHROOM, APPEARS WEAK WHEN AMBULATING. DR NOTED FHR TRACING WITH OCC CTX NOTED AND UTERINE IRRITABILITY PLAN OF CARE REVIEWED WITH PT AND FAMILY AT BEDSIDE. NEW ORDERS RECEIVED.
--- NOTE | 2019-05-18 17:27 | NUR ---
pt c/o heartburn and requests med. Dr Romero notified and new order received.
[2019-05-18] MEDS ORDERED: ANTACID SUSP 30 ML UDC (MYLANTA) PO PRN (17:30)
--- NOTE | 2019-05-18 17:49 | NUR ---
c/o nausea requests medication
--- NOTE | 2019-05-18 18:05 | NUR ---
Sleeping. family at bedside
--- NOTE | 2019-05-18 20:31 | NUR ---
pt states she needs assistance to the bathroom. standby assistance to the bathroom. positive void. pt began dry heaving while sitting on toilet. no emesis noted at this time. pt assisted back to bed. valan given ivp. [email or web address] tech here at this time. to finish bpp. pt denies any needs at this time. will continue to monitor.
[2019-05-18 23:55] VITALS: BP 113/71
--- NOTE | 2019-05-19 | NUR ---
pt vomiting large amount of emesis. Phenergan infusing
[2019-05-19] MEDS: NS IV 1000 ML 1,000 ML IV SCH ×2 (00:57→09:17)
[2019-05-19] MEDS: ONDANSETRON 4 MG/2 ML (SDV) Z0FRAN IVP PRN (03:24)
--- NOTE | 2019-05-19 03:25 | NUR ---
PT PUT PATIENTS TRANSPORTER LIGHT, C/O NAUSEA, ZOFRAN GIVEN IVP
[2019-05-19 04:00] VITALS: BP 119/73
[2019-05-19] MEDS: PROMETHAZINE INJ 25 MG/ML (PHENERGAN) AMP IVP PRN ×2 (05:21→09:39)
[2019-05-19 06:48] LABS: BASOPHILS % (AUTO) 0 % (0-10); EOSINOPHILS % (AUTO) 0 % (0-10); HEMATOCRIT 37 % (35-52); HEMOGLOBIN 12.3 G/DL (11.5-16.0); LYMPHOCYTES # (AUTO) 1.3 X 10^3 (1.0-4.0); LYMPHOCYTES % (AUTO) 9 % (12-44); MEAN CORPUSCULAR HEMOGLOBIN 32 PG (25-34); MEAN CORPUSCULAR HGB CONC 33 G/DL (32-36); MEAN CORPUSCULAR VOLUME 97 FL (80-99); MEAN PLATELET VOLUME 10.3 FL (7.4-10.4); MONOCYTES # (AUTO) 1.6 X 10^3 (0.0-1.0); MONOCYTES % (AUTO) 10 % (0-12); NEUTROPHILS # (AUTO) 12.8 X 10^3 (1.8-7.8); NEUTROPHILS % (AUTO) 81 % (42-75); PLATELET COUNT 213 10^3/uL (130-400); RED CELL DISTRIBUTION WIDTH 14.6 % (10.0-14.5); WHITE BLOOD COUNT 15.8 10^3/uL (4.3-11.0)
--- NOTE | 2019-05-19 07:15 | NUR ---
pt turned operational meteorologist light. +emesis reported. measured 400cc.
[2019-05-19] MEDS ORDERED: cefTRIAXone FOR IV USE 1,000 MG in WATER (STERILE) FOR INJECTION 10 ML IV SCH (07:30)
--- NOTE | 2019-05-19 07:36 | History & Physicial ---
History of Present Illness History of Present Illness Reason for visit/HPI 33-year-old 2 term 1 currently at 32 weeks gestation who presented on May 18, 2019 with nausea and vomiting. She has been unable to keep any fluids down. She apparently has lost quite a bit a weight. She has been trying at home to take Zofran or Phenergan without much success. Date of Admission May 18, 2019 Date Seen by a Provider: May 18, 2019 Time Seen by a Provider: 07:45 I consulted on this patient on 05/19/19 07:33 Attending Physician Bernardo Ely MD Admitting Physician Bernardo Ely MD Consult Allergies and Home Medications Allergies Coded Allergies: Penicillins (Unverified Allergy, Mild, RASH, 07/13/13) PER LILLIAM RECEIVED ROCEPHIN IN ER 07/12; NO PROBLEMS SO FAR Home Medications Pantoprazole Sodium 20 Mg Tablet.dr, 20 MG PO DAILY, (Reported) Vit W-Ca,Fe,FA(<1 mg) 1 Each Tablet, 1 EACH PO DAILY, (Reported) Promethazine HCl 25 Mg Tablet, 25 MG PO Q6H PRN for NAUSEA/VOMITING, (Reported) [Iron Supplement] , 1 PO DAILY, (Reported) Patient Home Medication List Home Medication List Reviewed: Yes Past Hklxmdk-Bdakrp-Zgrqld Hx Patient Social History Marrital Status: Former Smoker, Quit: Oct 31, 2016 Type Used: Cigarettes 2nd Hand Smoke Exposure: No Physical Abuse Screen: No Sexual Abuse: No Recent Foreign Travel: No Contact w/other who traveled: No Recent Hopitalizations: No Recent Infectious Disease Expo: No Immunizations Up To Date Tetanus Booster (TDap): Unknown Pediatric: Yes Seasonal Allergies Seasonal Allergies: No Surgeries No Respiratory No Cardiovascular No Neurological No Reproductive System Expected Date of Delivery: Jul 21, 2019 Hx : 2 Hx Para: 1 Hx Reproductive Disorders: No Sexually Transmitted Disease: No HIV/AIDS: No Female Reproductive Disorders: Denies Genitourinary No Kidney Stones Gastrointestinal No Musculoskeletal No Endocrine History of Endocrine Disorders: No HEENT History of HEENT Disorders: No Cancer No Did You Recieve Any Treatments: No Psychosocial History of Psychiatric Problem: No Integumentary History of Skin or Integumenta: No Blood Transfusions History of Blood Disorders: No Adverse Reaction to a Blood Tr: No Family Medical History Significant Family History: No Pertinent Family Hx Family Hx: Patient reports no known family medical history. Review of Systems Constitutional: see HPI Physical Exam Vital Signs Vital Signs - First Documented 05/18/19 05/18/19 05/18/19 07:23 08:00 09:40 Temp 98.1 Pulse 109 Resp 22 B/P (MAP) 111/73 (86) Pulse Ox 100 O2 Delivery Room Air Capillary Refill : Height, Weight, BMI Height: 5'4.00" Weight: 145lbs. 8.0oz. [id number]; 25.0 BMI Method:Stated General Appearance: Mild Distress Eyes: Bilateral Eye Normal Inspection HEENT: Other (Mucous membranes are dry) Neck: Supple Respiratory: Lungs Clear Cardiovascular: Regular Rate, Rhythm Gastrointestinal: Soft; No Distended, No Guarding Back: Normal Inspection Extremity: Normal Capillary Refill Neurologic/Psychiatric: Oriented x3 Assessment/Plan Assessment and Plan 1. Dehydration -IV fluids have been initiated and boluses given 2. Hyperemesis gravidarum -IV Phenergan 3. Intrauterine at 32 weeks -Currently monitoring q shift Admission Diagnosis 1. Dehydration 2. Hyperemesis gravidarum 3. Intrauterine at 32 weeks Admission Status: Inpatient Order (span 2 midnights) Reason for Inpatient Admission: IV fluid rehydration. Control nausea and vomiting BERNARDO ELY MD May 19, 2019 07:36
--- NOTE | 2019-05-19 07:37 | Progress Note (SOAP) ---
Subjective Date Seen by a Provider: May 19, 2019 Time Seen by a Provider: 07:45 Objective Exam Vital Signs Date Time Temp Pulse Resp B/P (MAP) Pulse Ox O2 Delivery O2 Flow Rate FiO2 05/19/19 04:00 97.6 99 22 119/73 (88) 100 Room Air 05/18/19 23:55 97.6 77 20 113/71 (85) 96 Room Air 05/18/19 16:05 98.3 108 20 122/68 (86) 100 Room Air 05/18/19 12:40 99.9 111 20 120/74 (89) Room Air 05/18/19 11:15 127 100 Room Air 05/18/19 10:40 118 20 121/76 (91) 100 Room Air 05/18/19 09:40 109 22 120/70 (87) 100 Room Air 05/18/19 08:00 98.1 I & O 05/19/19 07:00 Intake Total 2360 ml Output Total 250 ml Balance 2110 ml Capillary Refill : General Appearance: No Apparent Distress Results Lab Laboratory Tests 05/18/19 07:50: White Blood Count 19.4H, Red Blood Count 4.58, Hemoglobin 14.9, Hematocrit 43, Mean Corpuscular Volume 94, Mean Corpuscular Hemoglobin 33, Mean Corpuscular Hemoglobin Concent 35, Red Cell Distribution Width 14.4, Platelet Count 266, Mean Platelet Volume 9.7, Neutrophils (%) (Auto) 86H, Lymphocytes (%) (Auto) 6L, Monocytes (%) (Auto) 7, Eosinophils (%) (Auto) 0, Basophils (%) (Auto) 0, Neutrophils # (Auto) 16.7H, Lymphocytes # (Auto) 1.2, Monocytes # (Auto) 1.4H, Eosinophils # (Auto) 0.0, Basophils # (Auto) 0.1, Neutrophils % (Manual) 83, Lymphocytes % (Manual) 9, Monocytes % (Manual) 5, Eosinophils % (Manual) 0, Basophils % (Manual) 0, Band Neutrophils 3, Blood Morphology Comment NORMAL, Sodium Level 138, Potassium Level 4.3, Chloride Level 107, Carbon Dioxide Level 8*L, Anion Gap 23H, Blood Urea Nitrogen 6L, Creatinine 0.80, Estimat Glomerular Filtration Rate > 60, BUN/Creatinine Ratio 8, Glucose Level 102, Calcium Level 10.7H, Corrected Calcium , Total Bilirubin 0.5, Aspartate Amino Transf (AST/SGOT) 12, Alanine Aminotransferase (ALT/SGPT) 12, Alkaline Phosphatase 109, Total Protein 8.7H, Albumin 4.7H 05/18/19 09:30: Urine Color YELLOW, Urine Clarity SLIGHTLY CLOUDY, Urine pH 6, Urine Specific [place] 1.030H, Urine Protein 3+H, Urine Glucose (UA) NEGATIVE, Urine Ketones 4+H, Urine Nitrite NEGATIVE, Urine Bilirubin NEGATIVE, Urine Urobilinogen NORMAL, Urine Leukocyte Esterase 3+H, Urine RBC (Auto) 1+H, Urine RBC 0-2, Urine WBC 25-50H, Urine Squamous Epithelial Cells 25-50H, Urine Crystals NONE, Urine Bacteria MODERATEH, Urine Casts NONE, Urine Mucus MODERATEH, Urine Culture Indicated YES 05/19/19 06:11: White Blood Count 15.8H, Red Blood Count 3.80L, Hemoglobin 12.3, Hematocrit 37, Mean Corpuscular Volume 97, Mean Corpuscular Hemoglobin 32, Mean Corpuscular Hemoglobin Concent 33, Red Cell Distribution Width 14.6H, Platelet Count 213, Mean Platelet Volume 10.3, Neutrophils (%) (Auto) 81H, Lymphocytes (%) (Auto) 9L , Monocytes (%) (Auto) 10, Eosinophils (%) (Auto) 0, Basophils (%) (Auto) 0, Neutrophils # (Auto) 12.8H, Lymphocytes # (Auto) 1.3, Monocytes # (Auto) 1.6H, Eosinophils # (Auto) 0.0, Basophils # (Auto) 0.0 Assessment/Plan Assessment/Plan Assess & Plan/Chief Complaint 1. Dehydration -IV fluids have been initiated and boluses given 2. Hyperemesis gravidarum -IV Phenergan 3. Intrauterine at 32 weeks -Currently monitoring q shift 05/19 -Biophysical profile Clinical Quality Measures Admission Status Admission Dx 1. Dehydration 2. Hyperemesis gravidarum 3. Intrauterine at 32 weeks BERNARDO ELY MD May 19, 2019 07:37
--- NOTE | 2019-05-19 07:40 | NUR ---
Dr.Koehn layton
--- NOTE | 2019-05-19 09:19 | NUR ---
called. order received for amylase & lipase. discussed POC r/t transfer of care to the [facility].
--- NOTE | 2019-05-19 09:39 | NUR ---
c/o nausea. phenergan IV given. see eMar for further.
--- NOTE | 2019-05-19 09:45 | NUR ---
pt assisted up to BR. weak, SOA with ambulation. occasionally stumbles while ambulation. denies dizziness. +void. urine concentrated. assisted back to bed. initial shift assessment completed. reports +FM. denies ctx's. reports SOA while in bed, worse with ambulation.
--- NOTE | 2019-05-19 09:50 | NUR ---
called. planning transfer to [facility]. Addendum: 05/19/19 at 1549 by SHRUTI FARNSWORTH RN Dr.Angela Jose sams Dr. Addendum: 05/19/19 at 1550 by SHRUTI FARNSWORTH RN [facility]
--- NOTE | 2019-05-19 09:56 | NUR ---
[facility] shift captain notified of pt transfer to [facility].
--- NOTE | 2019-05-19 10:01 | NUR ---
telephone dismissal order received from .
--- NOTE | 2019-05-19 10:03 | NUR ---
[facility] called for transfer of pt.
--- NOTE | 2019-05-19 10:05 | NUR ---
transfer consent signed and placed on chart.
--- NOTE | 2019-05-19 10:08 | NUR ---
[facility] was called r/t transfer of pt. EVA Silva was given report. pt will go to room #9.
[2019-05-19 10:30] VITALS: BP 118/68
--- NOTE | 2019-05-19 10:45 | NUR ---
[facility] here. report given.
--- NOTE | 2019-05-19 10:55 | NUR ---
pt dismissed to EMS care for transport to [facility]. pt stable upon dismissal.
--- NOTE | 2019-05-19 11:20 | Diagnostic Imaging Report ---
INDICATION: Evaluate well-being. TECHNIQUE: Multiple real-time grayscale images were obtained over the gravid uterus. COMPARISON: 03/01/2019. FINDINGS: There is a single live fetus in a cephalic presentation. heart rate was recorded at 170 beats per minute. Placenta is fundal. Amniotic fluid index is 13.4 cm. Cervical length is 4.5 cm. Biophysical profile was performed. Score is 6/8 with 2 point deduction given for lack of breathing movements visualized. Biometrical measurements are as follows: Biparietal 8.19 cm, age 33 weeks 0 days. Head circumference 29.08 cm, age 32 weeks 1 days. Abdominal circumference 26.91 cm, age 31 weeks 1 days. Femur length 6.20 cm, age 32 weeks 1 days. Sonographic estimate age: 32 weeks 1 days. Sonographic estimated date of delivery: 07/12/2019. Estimated Weight: 1803 gm (+/- 263 gm). LMP percentile: 64%. heart rate: 170 beats per minute. number: 1 of 1. IMPRESSION: Single live IUP approximately 32 weeks gestational age. Biophysical profile score 6 out of 8, as described. Dictated by: Dictated on workstation # [id number]
[2019-05-19 12:14] LABS: ALANINE AMINOTRANSFERASE 11 U/L (0-55); ALBUMIN 3.8 GM/DL (3.2-4.5); ALKALINE PHOSPHATASE 87 U/L (40-136); BILIRUBIN,TOTAL 0.4 MG/DL (0.1-1.0); BUN/CREATININE RATIO 7; CALCIUM 9.4 MG/DL (8.5-10.1); CREATININE SERUM 0.71 MG/DL (0.60-1.30); GFR ESTIMATED > 60; GLUCOSE 89 MG/DL (70-105); POTASSIUM 3.7 MMOL/L (3.6-5.0); SODIUM 139 MMOL/L (135-145); TOTAL PROTEIN 6.6 GM/DL (6.4-8.2)
[2019-05-19 14:31] LABS: CHLORIDE 116 MMOL/L (98-107)
[2019-05-19 14:33] LABS: CARBON DIOXIDE 7 MMOL/L (21-32)
== END 2019-05-19 10:55 | disposition short-term general hospital (02) ==
LOC: WSo 07:04 → LDRP 07:07 → WSo 05-19 10:55
PROVIDERS: ATTEND Family Medicine
DX: O21.2 Late vomiting of pregnancy (principal); O99.283 Endocrine, nutritional and metabolic diseases complicating pregnancy, third trimester; E86.0 Dehydration; Z3A.32 32 weeks gestation of pregnancy
CPT/HCPCS: 36415; 76805; 76819; 80053; 81000; 83036; 85007; 85025; 85027; 87088; 96361; 96374; 96375; 96376

== ENCOUNTER 2019-06-04 13:39 | Inpatient (IN) | payer MEDICAID ==
[~2019-06-04] VITALS: Ht 162.6 cm; Wt 68.9 kg
[2019-06-04] VITALS (22 sets, daily range): BP systolic 89–111; BP diastolic 50–77
--- NOTE | 2019-06-04 13:35 | NUR ---
SHANTANU GUZMAN presented to unit via from Home, accompanied by family, with c/o decreased Movement. SHANTANU GUZMAN weighed, gowned, voided, and to bed. EFHM and TOCO applied, VS taken. SHANTANU GUZMAN oriented to bed controls, call light, TV, heat, and A/C controls.
[~2019-06-04 13:39] MED LIST changes: +PANT20TA2 PO; +PROM25TA14 PO
--- NOTE | 2019-06-04 13:47 | NUR ---
Dr. Romero notified of patient's arrival and inability to find heart tones. New orders received.
--- NOTE | 2019-06-04 13:49 | NUR ---
Ultrasound notified of need for STAT OB ultrasound to confirm demise.
[2019-06-04] MEDS ORDERED: FAMO20TA3 PO (13:58)
[2019-06-04] MEDS ORDERED: POTA-53 PO (13:58)
[2019-06-04] MEDS ORDERED: FERR325T18 PO (13:58)
--- NOTE | 2019-06-04 14:43 | NUR ---
Report received from Alex Mullins RN
--- NOTE | 2019-06-04 14:45 | NUR ---
Sono to bedside for ultrasound.
--- NOTE | 2019-06-04 14:55 | NUR ---
Dr Romero notified of sono result
--- NOTE | 2019-06-04 15:04 | NUR ---
Dr anthony to pt bedside and reviewed plan of care with pt.
--- NOTE | 2019-06-04 15:13 | Diagnostic Imaging Report ---
INDICATION: Decreased motion. TECHNIQUE: Multiple real-time grayscale images were obtained over the gravid uterus. COMPARISON: None FINDINGS: There is intrauterine gestation in cephalic presentation. Grade 2 fundal placenta is present without evidence of previa. cardiac activity is not identified. Amniotic fluid index is normal at 13 cm. Cervical length is 4.1 cm. No maternal adnexal region abnormality is identified. IMPRESSION: Absence of cardiac activity with estimated gestational age of 32 weeks and 3 days. This is consistent with demise. Biometrical measurements are as follows: Biparietal 7.72 cm, age 31 weeks 0 days. Head circumference 29.85 cm, age 33 weeks 1 days. Abdominal circumference 28.78 cm, age 32 weeks 6 days. Femur length 6.21 cm, age 32 weeks 2 days. Sonographic estimate age: 32 weeks 3 days. Sonographic estimated date of delivery: 07/27/2019. Estimated Weight: 1982 gm (+/- 289 gm). LMP percentile: 20%. heart rate: 0 beats per minute. number: 1 of 1. Dictated by: Dictated on workstation # [id number]
--- NOTE | 2019-06-04 15:32 | NUR ---
Dr Romero back to bedside, sve done. New orders received.
--- NOTE | 2019-06-04 15:44 | History & Physical-OB ---
OB - Chief Complaint & HPI Date/Time Date of Admission: Date of Admission: Date seen by a Provider: Jun 04, 2019 Time Seen by a Provider: 15:30 Chief Complaint/History OB-Reason for Admission/Chief: Medical Complication ( demise at 33w2d) Hx : 2 Hx Para: 1 Expected Date of Delivery: Jul 21, 2019 Gestational Age in Weeks: 33 Gestational Age in Days: 2 Admission Nurse Assessment Rev: Yes History of Labs GBS status unknown Allergies and Home Medications Allergies Coded Allergies: Penicillins (Unverified Allergy, Mild, RASH, 07/13/13) PER LILLIAM RECEIVED ROCEPHIN IN ER 07/12; NO PROBLEMS SO FAR Home Medications Famotidine 20 Mg Tablet, 20 MG PO BID, (Reported) Ferrous Sulfate 325 Mg Tablet, 325 MG PO DAILY, (Reported) Potassium Chloride 20 Meq Tablet.er, 20 MEQ PO DAILY, (Reported) Vit W-Ca,Fe,FA(<1 mg) 1 Each Tablet, 1 EACH PO DAILY, (Reported) Patient Home Medication List Home Medication List Reviewed: Yes OB - History Hx of Present Care: Yes Ultrasounds: Normal mid trimester US Obstetrical Complications: Other (at 31 weeks gestation maternal dehydration) Medical Complications: Other (above) Delivery History Hx Blood Disorders: No Adverse Rxn to Tranfusion: No Patient Past Medical History No chronic medical problems Social History/Family History HIV/AIDS: No Recent Infectious Disease Expo: No Sexually Transmitted Disease: No 2nd Hand Smoke Exposure: No Immunizations Hepatitis A: No Hepatitis B: No Tetanus Booster (TDap): Unknown OB - Admission Exam Physical Exam HEENT: Moist Membranes Heart: Rhythm Normal Lungs: Clear Abdomen: Gravid Cervical Dilatation: 1cm Effacement: 50% Station: Ballotable Membranes: Intact Contractions on Admission: None OB - Assessment/Plan/Diagnosis Assessment Assessment: IUFD (at 33w2d) Admission Dx 1. demise at 33 weeks gestation Admission Status: Inpatient Order (span 2 midnights) Reason for Inpatient Admission: Cytotec Plan Other Plan -IVFs -epidural if desire for pain control BERNARDO ELY MD Jun 04, 2019 15:44
[2019-06-04] MEDS ORDERED: ACETAMINOPHEN 325 MG TABLET PO PRN (15:45)
[2019-06-04] MEDS ORDERED: hydrOXYzine (VISTARIL/ATARAX) 25 MG capsule/tablet PO PRN ×2 (15:45→16:15)
--- NOTE | 2019-06-04 15:48 | NUR ---
Instructional Coordinator support provided to the pt and her at bedside following news of demise. Pt was weeping, verbalized shock and grief. States this was the first grand daughter on her 's side (Devin). Offered soothing touch and compassionate presence. Also communicated to Marilee Yan, the mid level project manager on-call, that she may be contacted for followup support.
[2019-06-04 16:06] LABS: BASOPHILS % (AUTO) 0 % (0-10); EOSINOPHILS # (AUTO) 0.1 10^3/uL (0.0-0.3); EOSINOPHILS % (AUTO) 1 % (0-10); HEMATOCRIT 34 % (35-52); HEMOGLOBIN 11.4 G/DL (11.5-16.0); LYMPHOCYTES # (AUTO) 1.7 X 10^3 (1.0-4.0); LYMPHOCYTES % (AUTO) 17 % (12-44); MEAN CORPUSCULAR HEMOGLOBIN 32 PG (25-34); MEAN CORPUSCULAR HGB CONC 33 G/DL (32-36); MEAN CORPUSCULAR VOLUME 96 FL (80-99); MEAN PLATELET VOLUME 9.6 FL (7.4-10.4); MONOCYTES # (AUTO) 1.1 X 10^3 (0.0-1.0); MONOCYTES % (AUTO) 11 % (0-12); NEUTROPHILS # (AUTO) 7.2 X 10^3 (1.8-7.8); NEUTROPHILS % (AUTO) 72 % (42-75); PLATELET COUNT 231 10^3/uL (130-400); RED CELL DISTRIBUTION WIDTH 15.3 % (10.0-14.5)
[2019-06-04] MEDS ORDERED: SUFENTA 0.6MCG/ML BUPIVA 0.125 100 ML ONE (16:21)
--- NOTE | 2019-06-04 16:30 | NUR ---
Report to Joselyn Pratt RN
[2019-06-04] MEDS ORDERED: hydrOXYzine (ATARAX) 10 MG TAB PO PRN (16:45)
[2019-06-04] MEDS: MISOPROSTOL 100 MCG (CYTOTEC) TAB PO SCH ×2 (16:48→20:56)
[2019-06-04] MEDS ORDERED: fentaNYL INJECTION 100 MCG/2 ML AMP ONE (17:08)
[2019-06-04] MEDS ORDERED: BUPIVACAINE 0.25% 30 ML (SENSORCAINE) VIAL ONE (17:08)
--- NOTE | 2019-06-04 17:12 | NUR ---
Preparing pt for epidural. Pt tearful - S.O. at bedside and supportive. 1714 Gentry Roe ASP DEVELOPER in to see pt. Pt trembling - difficulty in obtaining BP's due to pt motion. 1716 Pt's mother and father to see pt. Tearful. ASP DEVELOPER and this nurse out of room to provide privacy. 1730 ASP DEVELOPER back in room. Pt states she is feeling crampy. BP 107/55 p 88, sat 96%. 1732 initial local done - difficulty with placement - used more local for different sites. Pt tolerating fair - pt tense and emotional. 1739 103/57 p 110 100% 1743 114/64 p 112, 100%. 1745 100/55 p 106 98%. 1748 101/59 p 111 100%, 1751 105/57 p 98 100%, 1757 108/71 p 108 100%, 1800 114/66 p 111 99% - test dose done. 1802 Bolus in. 1803 83/50 p 93. Pt still sitting upright - dizzy and nauseated. 1805 Back to bed. 84/51 p 88. 1807 Epedrine 10mg IVP. Gentry LEYVA still at bedside. 1808 93/56, 1809 98/57 p 91, 100% 1812 100/58 p 102 99%, 1830 104/74 p 112 100% denies nausea. [id number] p 111 100%. Olsen inserted without difficulty. 1900 106/[address] Romero called to inquire about pt status. Informed has epidural in and felt crampy prior to epidural. Will apply external monitor for contractions on occasion per Dr Romero recommendations.
[2019-06-04] MEDS: D5 LR IV SOLUTION 1,000 ML IV SCH ×2 (17:32→19:42)
[2019-06-04] MEDS ORDERED: LIDOCAINE 1% INJ 20 ML 20 ML VIAL ONE (17:34)
[2019-06-04] MEDS: EPIDURAL (SUFENTA 0.6MCG/ML BUPIVA 0.125%) 100 ML BAG EPI SCH (18:09)
[2019-06-04] MEDS ORDERED: LACTATED RINGERS 1,000 ML IV ONE (18:20)
[2019-06-04] MEDS ORDERED: NALOXONE 0.4 MG/ML 1 ML (NARCAN) VIAL IV PRN (18:30)
[2019-06-04] MEDS ORDERED: CATHETER FLUSH 10 ML SYR IV PRN (18:30)
--- OUTSIDE RECORDS SUMMARY | 2019-06-04 19:06 | XMS REPORT | Continuity of Care Document ---
Author Organization Unknown Address Unknown Allergies Active Description Code Type Severity Reaction Onset Reported/Identified Relationship to Patient Clinical Status Yes Penicillins Drug Allergy N/A N/A 06/24/2013 Yes Penicillins [id number] Drug Allergy Mild RASH 07/13/2013 Medications There is no data. Problems Date Dx Coded Attending Type Code Diagnosis Diagnosed By 06/22/2013 JENNIFER DONG, JIL Marcial Ot 276.52 HYPOVOLEMIA 06/22/2013 JIL RODRIGUEZ MD Ot 300.00 ANXIETY STATE NOS 06/22/2013 JIL RODRIGUEZ MD Ot 308.9 ACUTE STRESS REACT NOS 06/22/2013 JIL RODIRGUEZ MD Ot 599.0 URIN TRACT INFECTION NOS 06/22/2013 JIL RODRIGEUZ MD Ot 780.2 SYNCOPE AND COLLAPSE 06/22/2013 JIL RODRIGUEZ MD Ot 786.01 HYPERVENTILATION 06/24/2013 780.2 SYNCOPE 06/24/2013 CUAUHTEMOC MOULTON MD 780.2 SYNCOPE 06/24/2013 EUGENE GUERRERO APRN 780.2 SYNCOPE 06/24/2013 [place] GEE APRN A 780.2 SYNCOPE 06/24/2013 CUAUHTEMOC MOULTON MD 780.2 SYNCOPE 06/24/2013 JESSICA GUERRERO APRNA L 780.2 SYNCOPE 07/14/2013 COMFORT GIBBONS MD Ot 382.9 OTITIS MEDIA NOS 07/14/2013 COMFORT GIBBONS MD Ot 463 ACUTE TONSILLITIS 07/14/2013 COMFORT GIBBONS MD Ot 785.6 ENLARGEMENT LYMPH NODES 07/16/2013 LILLY BHATTI MD Ot 462 ACUTE PHARYNGITIS 07/16/2013 LILLY BHATTI MD Ot 787.20 DYSPHAGIA, UNSPECIFIED 07/25/2013 DARIANA DONG, ALY Michael Ot 599.0 URIN TRACT INFECTION NOS 07/25/2013 DARIANA DONG, ALY Michael Ot 787.01 NAUSEA WITH VOMITING 07/27/2013 787.01 NAUSEA WITH VOMITING 07/27/2013 CUAUHTEMOC MOULTON MD N 787.01 NAUSEA WITH VOMITING 07/27/2013 CESAR VALENTINNASHLYNEUGENE L 787.01 NAUSEA WITH VOMITING 07/27/2013 GERARD YANG [place] A 787.01 NAUSEA WITH VOMITING 07/27/2013 CUAUHTEMOC MOULTON MD N 787.01 NAUSEA WITH VOMITING 07/27/2013 JOSERanjana YANG EUGENE L 787.01 NAUSEA WITH VOMITING 12/23/2013 CUAUHTEMOC MOULTON MD N 719.44 PAIN IN JOINT INVOLVING HAND 12/23/2013 CESAR YANG EUGENE L 719.44 PAIN IN JOINT INVOLVING HAND 12/23/2013 BETAA GEE APRNIDI A 719.44 PAIN IN JOINT INVOLVING HAND 12/23/2013 CUAUHTEMOC MOULTON MD N 719.44 PAIN IN JOINT INVOLVING HAND 12/23/2013 CESAR YANG EUGENE L 719.44 PAIN IN JOINT INVOLVING HAND 01/04/2014 ORESTES CASTAÑEDA MD Ot 354.0 CARPAL TUNNEL SYNDROME 01/04/2014 ORESTES CASTAÑEDA MD Ot 729.5 PAIN IN LIMB 04/27/2014 MADL VENEER REPAIRER MACHINE, EUGENE L 729.5 PAIN IN LIMB 04/27/2014 MADL VENEER REPAIRER MACHINE, EUGENE L 782.0 DISTURBANCE OF SKIN SENSATION 04/27/2014 BEATA GEE APRNIDI A 729.5 PAIN IN LIMB 04/27/2014 GERARD YANG [place] A 782.0 DISTURBANCE OF SKIN SENSATION 04/27/2014 CUAUHTEMOC MOULTON MD N 729.5 PAIN IN LIMB 04/27/2014 CUAUHTEMOC MOULTON MD N 782.0 DISTURBANCE OF SKIN SENSATION 04/27/2014 MADRanjana YANG EUGENE L 729.5 PAIN IN LIMB 04/27/2014 MADL TREY EUGENE L 782.0 DISTURBANCE OF SKIN SENSATION 05/31/2014 GERARD YANG [place] A 625.70 VULVODYNIA UNSPECIFIED 05/31/2014 BEATA GEE APRNIDI A 780.52 INSOMNIA UNSPECIFIED 05/31/2014 BEATA GEE APRNIDI A V58.69 LONG-TERM (CURRENT) USE OF OTHER [...] GUERRERO APRNA L 625.70 VULVODYNIA UNSPECIFIED 05/31/2014 JOSEASHLYN Chilel APRNWNYA L 780.52 INSOMNIA UNSPECIFIED 05/31/2014 JOSEL TREY EUGENE L V58.69 LONG-TERM (CURRENT) USE OF OTHER MEDICATIONS 05/31/2014 JOSERanjana YANG EUGENE L V74.5 STD SCREEN 05/31/2014 MADL VENEER REPAIRER MACHINE, EUGENE L V76.2 CERVICAL CANCER SCREENING (PAP SMEAR) 06/22/2014 CUAUHTEMOC MOULTON MD N 079.4 HPV 06/22/2014 CUAUHTEMOC MOULTON MD N 795.01 ABNORMAL PAP - ASCUS 06/22/2014 JOSEL VENEER REPAIRER MACHINE, EUGENE L 079.4 HPV 06/22/2014 MADL TREY, EUGENE L 795.01 ABNORMAL PAP - ASCUS 03/27/2015 CESAR YANG EUGENE L 372.30 CONJUNCTIVITIS UNSPECIFIED 01/21/2017 SOLIS DONG, BERNARDO Johnson Ot Z34.91 ENCNTR FOR SUPRVSN OF NORMAL PREG, UNSP, 02/22/2017 GABRIELLA THOMAS Ot E86.9 VOLUME DEPLETION, UNSPECIFIED 02/22/2017 GABRIELLA THOMAS Ot O99.611 DISEASES OF THE DGSTV SYS COMP 02/22/2017 CB FADI GABRIELLA hCilel Ot R11.2 NAUSEA WITH VOMITING, UNSPECIFIED 02/22/2017 GABRIELLA THOMAS Ot Z3A.01 LESS THAN 8 WEEKS GESTATION OF 02/24/2017 CB APONTEDAVEYGABRIELLA L Ot E86.9 VOLUME DEPLETION, UNSPECIFIED 02/24/2017 CB FDAI GABRIELLA L Ot O99.611 DISEASES OF THE DGSTV SYS COMP 02/24/2017 CB FADIDAVEYGABRIELLA L Ot R11.2 NAUSEA WITH VOMITING, UNSPECIFIED 02/24/2017 CB FADIDAVEYGABRIELLA L Ot Z3A.01 LESS THAN 8 WEEKS GESTATION OF 02/24/2017 BERNARDO ELY MD, Ot Z34.91 ENCNTR FOR SUPRVSN OF NORMAL PREG, UNSP, 04/09/2017 BERNARDO ELY MD, Ot Z34.91 ENCNTR FOR SUPRVSN OF NORMAL PREG, UNSP, 04/09/2017 JIL RODRIGUEZ MD Ot O46.92 ANTEPARTUM HEMORRHAGE, UNSPECIFIED, SECO 04/09/2017 JIL RODRIGUEZ MD Ot Z3A.17 17 WEEKS GESTATION OF 05/01/2017 BERNARDO ELY MD, Ot Z34.92 ENCNTR FOR SUPRVSN OF NORMAL PREG, UNSP, 05/01/2017 BERNARDO ELY MD Ot Z36 ENCOUNTER FOR SCREENING OF MOT 05/15/2017 BERNARDO ELY MD, Ot Z34.92 ENCNTR FOR SUPRVSN OF NORMAL PREG, UNSP, 05/15/2017 BERNARDO ELY MD Ot Z36 ENCOUNTER FOR SCREENING OF MOT 07/18/2017 BERNARDO ELY MD, Ot Z34.91 ENCNTR FOR SUPRVSN OF NORMAL PREG, UNSP, 07/18/2017 BERNARDO ELY MD, Ot Z34.92 ENCNTR FOR SUPRVSN OF NORMAL PREG, UNSP, 07/18/2017 BERNARDO ELY MD Ot Z36 ENCOUNTER FOR SCREENING OF MOT 07/18/2017 BERNARDO ELY MD Ot Z53.9 PROCEDURE AND TREATMENT NOT CARRIED OUT, 07/18/2017 DEYSI PRIEST DO Ot O23.43 UNSP INFCT OF URINARY TRACT IN 07/18/2017 DEYSI PRIEST DO Ot O99.513 DISEASES OF THE RESP SYS COMP , 07/18/2017 DEYSI PRIEST DO Ot O99.89 OTH DISEASES AND CONDITIONS COMPL PREG/C 07/18/2017 ZAYDA MCBRIDE DEYSI Escudero Ot R20.2 PARESTHESIA OF SKIN 07/18/2017 ZAYDA MCBRIDE DEYSI K Ot Z3A.32 32 WEEKS GESTATION OF 07/18/2017 DEYSI PRIEST DO Ot Z87.442 PERSONAL HISTORY OF URINARY CALCULI 07/18/2017 BERNARDO ELY MD, Ot Z34.91 ENCNTR FOR SUPRVSN OF NORMAL PREG, UNSP, 07/18/2017 BERNARDO ELY MD, Ot Z34.92 ENCNTR FOR SUPRVSN OF NORMAL PREG, UNSP, 07/18/2017 BERNARDO ELY MD, Ot Z36 ENCOUNTER FOR SCREENING OF MOT 2017 BERNARDO ELY MD, Ot Z53.9 PROCEDURE AND TREATMENT NOT CARRIED OUT, 09/16/2017 BERNARDO ELY MD, Ot O75.89 OTHER SPECIFIED COMPLICATIONS OF LABOR A 09/16/2017 BERNARDO ELY MD, Ot Z37.0 SINGLE LIVE 09/16/2017 BERNARDO ELY MD, Ot Z3A.40 40 WEEKS GESTATION OF 12/11/2018 BERNARDO ELY MD, Ot Z34.91 ENCNTR FOR SUPRVSN OF NORMAL PREG, UNSP, 12/11/2018 BERNARDO ELY MD, Ot Z3A.08 8 WEEKS GESTATION OF 12/16/2018 BERNARDO ELY MD, Ot Z34.91 ENCNTR FOR SUPRVSN OF NORMAL PREG, UNSP, 12/16/2018 BERNARDO ELY MD, Ot Z3A.08 8 WEEKS GESTATION OF 12/25/2018 BERNARDO ELY MD, Ot Z34.91 ENCNTR FOR SUPRVSN OF NORMAL PREG, UNSP, 12/25/2018 BERNARDO ELY MD, Ot Z3A.08 8 WEEKS GESTATION OF 03/03/2019 BERNARDO ELY MD, Ot Z36.89 ENCOUNTER FOR OTHER SPECIFIED 03/03/2019 BERNARDO ELY MD, Ot Z3A.20 20 WEEKS GESTATION OF 03/18/2019 BERNARDO ELY MD, Ot Z36.89 ENCOUNTER FOR OTHER SPECIFIED 03/18/2019 BERNARDO ELY MD, Ot Z3A.20 20 WEEKS GESTATION OF 05/14/2019 BERNARDO ELY MD, Ot Z34.91 ENCNTR FOR SUPRVSN OF NORMAL PREG, UNSP, 05/14/2019 BERNARDO ELY MD, Ot Z34.92 ENCNTR FOR SUPRVSN OF NORMAL PREG, UNSP, 05/14/2019 BERNARDO ELY MD, Ot Z36 ENCOUNTER FOR SCREENING OF MOT 05/14/2019 BERNARDO ELY MD, Ot Z34.91 ENCNTR FOR SUPRVSN OF NORMAL PREG, UNSP, 05/14/2019 BERNARDO ELY MD, Ot Z3A.08 8 WEEKS GESTATION OF 05/14/2019 BERNARDO ELY MD, Ot Z36.89 ENCOUNTER FOR OTHER SPECIFIED 05/14/2019 BERNARDO ELY MD, Ot Z3A.20 20 WEEKS GESTATION OF 05/19/2019 BERNARDO ELY MD, Ot E86.0 DEHYDRATION 05/19/2019 BERNARDO ELY MD, Ot O21.2 LATE VOMITING OF 05/19/2019 BERNARDO ELY MD Ot O99.283 ENDO, NUTRITIONAL AND METAB DISEASES COM 05/19/2019 BERNARDO ELY MD, Ot Z3A.32 32 WEEKS GESTATION OF 05/23/2019 BERNARDO ELY MD Ot E86.0 DEHYDRATION 05/23/2019 BERNARDO ELY MD Ot O21.2 LATE VOMITING OF 05/23/2019 BERNARDO ELY MD Ot O99.283 ENDO, NUTRITIONAL AND METAB DISEASES COM 05/23/2019 BERNARDO ELY MD, Ot Z3A.32 32 WEEKS GESTATION OF 05/25/2019 BERNARDO ELY MD, Ot E86.0 DEHYDRATION 05/25/2019 BERNARDO ELY MD Ot O21.2 LATE VOMITING OF 05/25/2019 BERNARDO ELY MD Ot O99.283 ENDO, NUTRITIONAL AND METAB DISEASES COM 05/25/2019 BERNARDO ELY MD, Ot Z3A.32 32 WEEKS GESTATION OF 06/02/2019 BERNARDO ELY MD, Ot E86.0 DEHYDRATION 06/02/2019 BERNARDO ELY MD, Ot K52.9 NONINFECTIVE GASTROENTERITIS AND COLITIS 06/02/2019 BERNARDO ELY MD, Ot O99.283 ENDO, NUTRITIONAL AND METAB DISEASES COM 06/02/2019 BERNARDO ELY MD, Ot O99.613 DISEASES OF THE DGSTV SYS COMP 06/02/2019 BERNARDO ELY MD, Ot Z3A.30 30 WEEKS GESTATION OF Procedures Code Description [place] [address] CULTURE UROGENITAL 05/31/2014 19369 GC/CHLAM PROBE (STATE) 05/31/2014 46590 PAP SMEAR 05/31/2014 Q0091 PAP SMEAR OBTAIN SMEAR 05/31/2014 60513 TEST, URINE (IN-HOUSE) 05/31/2014 46754 TRICHOMONAS (IN-HOUSE) 05/31/2014 86592 TEST, URINE (IN-HOUSE) 06/22/2014 07889 COLP W/ BX & ECC 06/22/2014 [id number] DIVISION OF FEMALE PERINEUM, EXTERNAL AP 09/15/2017 [id number] EXTRACTION OF PRODUCTS OF CONCEPTION, [place] 09/15/2017 Results Test Result Range Bacterial urine culture - 02/22/17 21:00 Bacterial urine culture FOOTNOTE NRG Complete blood count (CBC) with automated white blood cell (WBC) differential - 02/22/17 21:04 Blood leukocytes automated count (number/volume) 9.9 10*3/uL 4.3-11.0 Blood erythrocytes automated count (number/volume) 4.03 10*6/uL 4.35-5.85 Venous blood hemoglobin measurement (mass/volume) 12.5 g/dL 11.5-16.0 Blood hematocrit (volume fraction) 35 % 35-52 Automated erythrocyte mean corpuscular volume 87 [foz_us] 80-99 Automated erythrocyte mean corpuscular hemoglobin (mass per erythrocyte) 31 pg 25-34 Automated erythrocyte mean corpuscular hemoglobin concentration measurement (mass/volume) 36 g/dL 32-36 Automated erythrocyte distribution width ratio 12.6 % 10.0- 14.5 Automated blood platelet count (count/volume) 224 10*3/uL 130-400 Automated blood platelet mean volume measurement 9.9 [foz_us] 7.4-10.4 Automated blood neutrophils/100 leukocytes 84 % 42-75 Automated blood lymphocytes/100 leukocytes 10 % 12-44 Blood monocytes/100 leukocytes 6 % 0-12 Automated blood eosinophils/100 leukocytes 0 % 0-10 Automated blood basophils/100 leukocytes 0 % 0-10 Blood neutrophils automated count (number/volume) 8.3 10*3 1.8-7.8 Blood lymphocytes automated count (number/volume) 1.0 10*3 1.0-4.0 Blood monocytes automated count (number/volume) 0.5 10*3 0.0- 1.0 Automated eosinophil count 0.0 10*3/uL 0.0-0.3 Automated blood basophil count (count/volume) 0.0 10*3/uL 0.0-0.1 Comprehensive metabolic panel - 02/22/17 21:04 Serum or plasma sodium measurement (moles/volume) 138 mmol/L 135-145 Serum or plasma potassium measurement (moles/volume) 3.5 mmol/L 3.6-5.0 Serum or plasma chloride measurement (moles/volume) 106 mmol/L 98-107 Carbon dioxide 19 mmol/L 21-32 Serum or plasma anion gap determination (moles/volume) 13 mmol/L 5-14 Serum or plasma urea nitrogen measurement (mass/volume) 9 mg/dL 7-18 Serum or plasma creatinine measurement (mass/volume) 0.66 mg/dL 0.60-1.30 Serum or plasma urea nitrogen/creatinine mass [...] Serum or plasma aspartate aminotransferase measurement (enzymatic activity/volume) 15 U/L 5-34 Serum or plasma alanine aminotransferase measurement (enzymatic activity/volume) 10 U/L 0-55 Serum or plasma protein measurement (mass/volume) 6.2 g/dL 6.4-8.2 Serum or plasma albumin measurement (mass/volume) 4.0 g/dL 3.2-4.5 Lipase - 02/22/17 21:04 Lipase 7 U/L 8-78 Complete urinalysis with reflex to culture - 02/22/17 21:06 Urine color determination YELLOW NRG Urine clarity determination VERY CLOUDY NRG Urine pH measurement by test strip 6 5-9 Specific gravity of urine by test strip [...] sediment leukocyte count by microscopy (number/high power field) [HPF] NRG Bacteria detection in urine sediment [...] sediment by light microscopy FEW SPERM NRG Complete blood count (CBC) with automated white blood cell (WBC) differential - 04/09/17 19:59 Blood leukocytes automated count (number/volume) 9.9 10*3/uL 4.3-11.0 Blood erythrocytes automated count (number/volume) 3.49 10*6/uL 4.35-5.85 Venous blood hemoglobin measurement (mass/volume) 11.1 g/dL 11.5-16.0 Blood hematocrit (volume fraction) 33 % 35-52 Automated erythrocyte mean corpuscular volume 93 [foz_us] 80-99 Automated erythrocyte mean corpuscular hemoglobin (mass per erythrocyte) 32 pg 25-34 Automated erythrocyte mean corpuscular hemoglobin concentration measurement (mass/volume) 34 g/dL 32-36 Automated erythrocyte distribution width ratio 14.7 % 10.0- 14.5 Automated blood platelet count (count/volume) 206 10*3/uL 130-400 Automated blood platelet mean volume measurement 9.6 [foz_us] 7.4-10.4 Automated blood neutrophils/100 leukocytes 70 % 42-75 Automated blood lymphocytes/100 leukocytes 19 % 12-44 Blood monocytes/100 leukocytes 9 % 0-12 Automated blood eosinophils/100 leukocytes 2 % 0-10 Automated blood basophils/100 leukocytes 0 % 0-10 Blood neutrophils automated count (number/volume) 6.9 10*3 1.8-7.8 Blood lymphocytes automated count (number/volume) 1.9 10*3 1.0-4.0 Blood monocytes automated count (number/volume) 0.9 10*3 0.0- 1.0 Automated eosinophil count 0.2 10*3/uL 0.0-0.3 Automated blood basophil count (count/volume) 0.0 10*3/uL 0.0-0.1 Complete urinalysis with reflex to culture - 04/09/17 19:59 Urine color determination YELLOW NRG Urine clarity determination SLIGHTLY CLOUDY NRG Urine pH measurement by test strip 6.5 5-9 Specific gravity of urine by test strip 1.020 1.016-1.022 Urine protein assay by test strip, semi-quantitative 1+ NEGATIVE Urine glucose detection by automated test strip NEGATIVE NEGATIVE Erythrocytes detection in urine sediment by light microscopy 5+ NEGATIVE Urine ketones detection by automated test strip 1+ NEGATIVE Urine nitrite detection by test strip NEGATIVE NEGATIVE Urine total bilirubin detection by test strip NEGATIVE NEGATIVE Urine urobilinogen measurement by automated test strip (mass/volume) NORMAL NORMAL Urine leukocyte esterase detection by dipstick 1+ NEGATIVE Automated urine sediment erythrocyte count by microscopy (number/high power field) > [HPF] NRG Automated urine sediment leukocyte count by microscopy (number/high power field) [HPF] NRG Bacteria detection in urine sediment by light microscopy TRACE NRG Squamous epithelial cells detection in urine sediment by light microscopy 2-5 NRG Crystals detection in urine sediment by light microscopy PRESENT NRG Casts detection in urine sediment by light microscopy NONE NRG Mucus detection in urine sediment by light microscopy NEGATIVE NRG Complete urinalysis with reflex to culture NO NRG Amorphous sediment detection in urine sediment by light microscopy RARE IAN URATES NRG ABO+Rh group - 04/09/17 19:59 ABO+Rh group OP NRG Bacteria identification in genital specimen by aerobe culture - 04/09/17 21:32 FREE TEXT EXTERNAL PLUS ABUNDANT NORMAL SARAH NRG QUANTITY OF GROWTH Scant Growth NRG Bacteria identification in genital specimen by aerobe culture [id number] NRG Microscopic examination by RANCHO preparation - 04/09/17 21:32 Microscopic examination by RANCHO preparation TNP NRG Microscopic examination by wet preparation - 04/09/17 21:32 WET PREP RESULTS 2154, 04-09-17 BY PK NRG Neisseria gonorrhoeae DNA detection by probe and signal amplification method - 04/09/17 21:32 Gonorrhea amp DNA-urine Negative Negative Chlamydia trachomatis DNA detection by probe and signal amplification method - 04/09/17 21:32 Chlamydia trachomatis DNA detection by probe and target amplification method Negative Negative Complete blood count (CBC) with automated white blood cell (WBC) differential - 07/18/17 15:55 Blood leukocytes automated count (number/volume) 10.2 10*3/uL 4.3-11.0 Blood erythrocytes automated count (number/volume) 3.32 10*6/uL 4.35-5.85 Venous blood hemoglobin measurement (mass/volume) 10.8 g/dL 11.5-16.0 Blood hematocrit (volume fraction) 32 % 35-52 Automated erythrocyte mean corpuscular volume 96 [foz_us] 80-99 Automated erythrocyte mean corpuscular hemoglobin (mass per erythrocyte) 33 pg 25-34 Automated erythrocyte mean corpuscular hemoglobin concentration measurement (mass/volume) 34 g/dL 32-36 Automated erythrocyte distribution width ratio 13.9 % 10.0- 14.5 Automated blood platelet count (count/volume) 194 10*3/uL 130-400 Automated blood platelet mean volume measurement 9.4 [foz_us] 7.4-10.4 Automated blood neutrophils/100 leukocytes 77 % 42-75 Automated blood lymphocytes/100 leukocytes 14 % 12-44 Blood monocytes/100 leukocytes 9 % 0-12 Automated blood eosinophils/100 leukocytes 1 % 0-10 Automated blood basophils/100 leukocytes 0 % 0-10 Blood neutrophils automated count (number/volume) 7.8 10*3 1.8-7.8 Blood lymphocytes automated count (number/volume) 1.4 10*3 1.0-4.0 Blood monocytes automated count (number/volume) 0.9 10*3 0.0- 1.0 Automated eosinophil count 0.1 10*3/uL 0.0-0.3 Automated blood basophil count (count/volume) 0.0 10*3/uL 0.0-0.1 Comprehensive metabolic panel - 07/18/17 15:55 Serum or plasma sodium measurement (moles/volume) 139 mmol/L 135-145 Serum or plasma potassium measurement (moles/volume) 3.6 mmol/L 3.6-5.0 Serum or plasma chloride measurement (moles/volume) 110 mmol/L 98-107 Carbon dioxide 20 mmol/L 21-32 Serum or plasma anion gap determination (moles/volume) 9 mmol/L 5-14 Serum or plasma urea nitrogen measurement (mass/volume) 7 mg/dL 7-18 Serum or plasma creatinine measurement (mass/volume) 0.54 mg/dL 0.60-1.30 Serum or plasma urea nitrogen/creatinine mass ratio 13 NRG Serum or plasma creatinine measurement with calculation of estimated glomerular filtration rate > NRG Serum or plasma glucose measurement (mass/volume) 105 mg/dL 70-105 Serum or plasma calcium measurement (mass/volume) 9.4 mg/dL 8.5-10.1 Serum or plasma total bilirubin measurement (mass/volume) 0.2 mg/dL 0.1-1.0 Serum or plasma alkaline phosphatase measurement (enzymatic activity/volume) 69 U/L 40-136 Serum or plasma aspartate aminotransferase measurement (enzymatic activity/volume) 16 U/L 5-34 Serum or plasma alanine aminotransferase measurement (enzymatic activity/volume) 19 U/L 0-55 Serum or plasma protein measurement (mass/volume) 6.0 g/dL 6.4-8.2 Serum or plasma albumin measurement (mass/volume) 3.4 g/dL 3.2-4.5 Magnesium - 07/18/17 15:55 Magnesium 1.6 mg/dL 1.8-2.4 Serum or plasma thyrotropin measurement by detection limit <=0.05 miu/l (units/volume) - 07/18/17 15:55 Serum or plasma thyrotropin measurement by detection limit <=0.05 miu/l (units/volume) 1.14 u[iU]/mL 0.35-4.94 Bacterial urine culture - 07/18/17 16:10 URINE CULTURE RESULTS 10,000/ML - 100,000/ML NRG Urine drug screening test - 07/18/17 16:16 Urine phencyclidine detection by screening method NEGATIVE NEGATIVE Urine benzodiazepines detection by screening method NEGATIVE NEGATIVE Urine cocaine detection NEGATIVE NEGATIVE Urine amphetamines detection by screening method NEGATIVE NEGATIVE Urine methamphetamine detection by screening method NEGATIVE NEGATIVE Urine cannabinoids detection by screening method NEGATIVE NEGATIVE Urine opiates detection by screening method NEGATIVE NEGATIVE Urine barbiturates detection NEGATIVE NEGATIVE Screening urine tricyclic antidepressants detection NEGATIVE NEGATIVE Urine methadone detection by screening method NEGATIVE NEGATIVE Urine oxycodone detection NEGATIVE NEGATIVE Urine propoxyphene detection NEGATIVE NEGATIVE Complete urinalysis with reflex to culture - 07/18/17 16:16 Urine color determination YELLOW NRG Urine clarity determination CLEAR NRG Urine pH measurement by test strip 7 5-9 Specific gravity of urine by test strip 1.015 1.016-1.022 Urine protein assay by test strip, semi-quantitative NEGATIVE NEGATIVE Urine glucose detection by automated test strip NEGATIVE NEGATIVE Erythrocytes detection in urine sediment by light microscopy NEGATIVE NEGATIVE Urine ketones detection by automated test strip NEGATIVE NEGATIVE Urine nitrite detection by test strip NEGATIVE NEGATIVE Urine total bilirubin detection by test strip NEGATIVE NEGATIVE Urine urobilinogen measurement by automated test strip (mass/volume) NORMAL NORMAL Urine leukocyte esterase detection by dipstick 2+ NEGATIVE Automated urine sediment erythrocyte count by microscopy (number/high power field) NONE NRG Automated urine sediment leukocyte count by microscopy (number/high power field) [HPF] NRG Bacteria detection in urine sediment by light microscopy FEW NRG Squamous epithelial cells detection in urine sediment by light microscopy 25-50 NRG Crystals detection in urine sediment by light microscopy PRESENT NRG Casts detection in urine sediment by light microscopy NONE NRG Mucus detection in urine sediment by light microscopy NEGATIVE NRG Complete urinalysis with reflex to culture NO NRG Amorphous sediment detection in urine sediment by light microscopy MOD IAN URATES NRG Complete blood count (CBC) with automated white blood cell (WBC) differential - 09/14/17 19:30 Blood leukocytes automated count (number/volume) 9.4 10*3/uL 4.3-11.0 Blood erythrocytes automated count (number/volume) 3.69 10*6/uL 4.35-5.85 Venous blood hemoglobin measurement (mass/volume) 11.8 g/dL 11.5-16.0 Blood hematocrit (volume fraction) 35 % 35-52 Automated erythrocyte mean corpuscular volume 95 [foz_us] 80-99 Automated erythrocyte mean corpuscular hemoglobin (mass per erythrocyte) 32 pg 25-34 Automated erythrocyte mean corpuscular hemoglobin concentration measurement (mass/volume) 34 g/dL 32-36 Automated erythrocyte distribution width ratio 14.0 % 10.0- 14.5 Automated blood platelet count (count/volume) 208 10*3/uL 130-400 Automated blood platelet mean volume measurement 10.5 [foz_us] 7.4-10.4 Automated blood neutrophils/100 leukocytes 68 % 42-75 Automated blood lymphocytes/100 leukocytes 19 % 12-44 Blood monocytes/100 leukocytes 12 % 0-12 Automated blood eosinophils/100 leukocytes 1 % 0-10 Automated blood basophils/100 leukocytes 0 % 0-10 Blood neutrophils automated count (number/volume) 6.4 10*3 1.8-7.8 Blood lymphocytes automated count (number/volume) 1.8 10*3 1.0-4.0 Blood monocytes automated count (number/volume) 1.1 10*3 0.0- 1.0 Automated eosinophil count 0.1 10*3/uL 0.0-0.3 Automated blood basophil count (count/volume) 0.0 10*3/uL 0.0-0.1 Blood type T Indirect antibody screen panel - 09/14/17 19:30 ABO+Rh group OP [facility] Transfusion band number [id number] [facility] Blood group antibody screen NEGATIVE [facility] Complete blood count (CBC) with automated white blood cell (WBC) differential - 09/16/17 05:55 Blood leukocytes automated count (number/volume) 11.7 10*3/uL 4.3-11.0 Blood erythrocytes automated count (number/volume) 2.65 10*6/uL 4.35-5.85 Venous blood hemoglobin measurement (mass/volume) 8.5 g/dL 11.5-16.0 Blood hematocrit (volume fraction) 26 % 35-52 Automated erythrocyte mean corpuscular volume 97 [foz_us] 80-99 Automated erythrocyte mean corpuscular hemoglobin (mass per erythrocyte) 32 pg 25-34 Automated erythrocyte mean corpuscular hemoglobin concentration measurement (mass/volume) 33 g/dL 32-36 Automated erythrocyte distribution width ratio 14.0 % 10.0- 14.5 Automated blood platelet count (count/volume) 172 10*3/uL 130-400 Automated blood platelet mean volume measurement 10.1 [foz_us] 7.4-10.4 Automated blood neutrophils/100 leukocytes 72 % 42-75 Automated blood lymphocytes/100 leukocytes 18 % 12-44 Blood monocytes/100 leukocytes 10 % 0-12 Automated blood eosinophils/100 leukocytes 1 % 0-10 Automated blood basophils/100 leukocytes 0 % 0-10 Blood neutrophils automated count (number/volume) 8.4 10*3 1.8-7.8 Blood lymphocytes automated count (number/volume) 2.1 10*3 1.0-4.0 Blood monocytes automated count (number/volume) 1.2 10*3 0.0- 1.0 Automated eosinophil count 0.1 10*3/uL 0.0-0.3 Automated blood basophil count (count/volume) 0.0 10*3/uL 0.0-0.1 Complete urinalysis with reflex to culture - 05/14/19 20:07 Urine color determination YELLOW NRG Urine clarity determination CLEAR NRG Urine pH measurement by test strip 6 5-9 Specific gravity of urine by test strip 1.025 1.016-1.022 Urine protein assay by test strip, semi-quantitative 2+ NEGATIVE Urine glucose detection by automated test strip NEGATIVE NEGATIVE Erythrocytes detection in urine sediment by light microscopy NEGATIVE NEGATIVE Urine ketones detection by automated test strip 4+ NEGATIVE Urine nitrite detection by test strip NEGATIVE NEGATIVE Urine total bilirubin detection by test strip NEGATIVE NEGATIVE Urine urobilinogen measurement by automated test strip (mass/volume) 1 mg/dL NORMAL Urine leukocyte esterase detection by dipstick 2+ NEGATIVE Automated urine sediment erythrocyte count by microscopy (number/high power field) [HPF] NRG Automated urine sediment leukocyte count by microscopy (number/high power field) [HPF] NRG Bacteria detection in urine sediment by light microscopy FEW NRG Squamous epithelial cells detection in urine sediment by light microscopy 10-25 NRG Crystals detection in urine sediment by light microscopy PRESENT NRG Casts detection in urine sediment by light microscopy PRESENT NRG Mucus detection in urine sediment by light microscopy MODERATE NRG Complete urinalysis with reflex to culture NO NRG Amorphous sediment detection in urine sediment by light microscopy FEW IAN URATES NRG Hyaline casts detection in urine sediment by light microscopy 5-10 NRG Bacterial urine culture - 05/14/19 20:07 Bacterial urine culture 3 OR MORE NRG COLONY COUNT 70,000 cfu/ml NRG FTX;REPORTABLE SUGGESTING PROBABLE COLLECTION NRG FREE TEXT ENTRY 2 CONTAMINATION WITH SKIN SARAH NRG FREE TEXT ENTRY 3 NO SUSCEPTIBILITY PERFORMED NRG Complete blood count (CBC) with automated white blood cell (WBC) differential - 05/18/19 07:50 Blood leukocytes automated count (number/volume) 19.4 10*3/uL 4.3-11.0 Blood erythrocytes automated count (number/volume) 4.58 10*6/uL 4.35-5.85 Venous blood hemoglobin measurement (mass/volume) 14.9 g/dL 11.5-16.0 Blood hematocrit (volume fraction) 43 % 35-52 Automated erythrocyte mean corpuscular volume 94 [foz_us] 80-99 Automated erythrocyte mean corpuscular hemoglobin (mass per erythrocyte) 33 pg 25-34 Automated erythrocyte mean corpuscular hemoglobin concentration measurement (mass/volume) 35 g/dL 32-36 Automated erythrocyte distribution width ratio 14.4 % 10.0- 14.5 Automated blood platelet count (count/volume) 266 10*3/uL 130-400 Automated blood platelet mean volume measurement 9.7 [foz_us] 7.4-10.4 Automated blood neutrophils/100 leukocytes 86 % 42-75 Automated blood lymphocytes/100 leukocytes 6 % 12-44 Blood monocytes/100 leukocytes 7 % 0-12 Automated blood eosinophils/100 leukocytes 0 % 0-10 Automated blood basophils/100 leukocytes 0 % 0-10 Blood neutrophils automated count (number/volume) 16.7 10*3 1.8-7.8 Blood lymphocytes automated count (number/volume) 1.2 10*3 1.0-4.0 Blood monocytes automated count (number/volume) 1.4 10*3 0.0- 1.0 Automated eosinophil count 0.0 10*3/uL 0.0-0.3 Automated blood basophil count (count/volume) 0.1 10*3/uL 0.0-0.1 Comprehensive metabolic panel - 05/18/19 07:50 Serum or plasma sodium measurement (moles/volume) 138 mmol/L 135-145 Serum or plasma potassium measurement (moles/volume) 4.3 mmol/L 3.6-5.0 Serum or plasma chloride measurement (moles/volume) 107 mmol/L 98-107 Carbon dioxide 8 mmol/L 21-32 Serum or plasma anion gap determination (moles/volume) 23 mmol/L 5-14 Serum or plasma urea nitrogen measurement (mass/volume) 6 mg/dL 7-18 Serum or plasma creatinine measurement (mass/volume) 0.80 mg/dL 0.60-1.30 Serum or plasma urea nitrogen/creatinine mass ratio 8 NRG Serum or plasma creatinine measurement with calculation of estimated glomerular filtration rate > NRG Serum or plasma glucose measurement (mass/volume) 102 mg/dL 70-105 Serum or plasma calcium measurement (mass/volume) 10.7 mg/dL 8.5-10.1 Serum or plasma total bilirubin measurement (mass/volume) 0.5 mg/dL 0.1-1.0 Serum or plasma alkaline phosphatase measurement (enzymatic activity/volume) 109 U/L 40-136 Serum or plasma aspartate aminotransferase measurement (enzymatic activity/volume) 12 U/L 5-34 Serum or plasma alanine aminotransferase measurement (enzymatic activity/volume) 12 U/L 0-55 Serum or plasma protein measurement (mass/volume) 8.7 g/dL 6.4-8.2 Serum or plasma albumin measurement (mass/volume) 4.7 g/dL 3.2-4.5 Manual absolute plasma cell count - 05/18/19 07:50 Blood monocytes/100 leukocytes 5 % NRG Manual blood segmented neutrophils/100 leukocytes 83 % NRG Blood band neutrophils/100 leukocytes 3 % NRG Manual blood lymphocytes/100 leukocytes 9 % NRG Manual eosinophils/100 leukocytes in nose 0 % NRG Manual blood basophils/100 leukocytes 0 % NRG Blood erythrocyte morphology finding identification NORMAL NRG Complete urinalysis with reflex to culture - 05/18/19 09:30 Urine color determination YELLOW NRG Urine clarity determination SLIGHTLY CLOUDY NRG Urine pH measurement by test strip 6 5-9 Specific gravity of urine by test strip 1.030 1.016-1.022 Urine protein assay by test strip, semi-quantitative 3+ NEGATIVE Urine glucose detection by automated test strip NEGATIVE NEGATIVE Erythrocytes detection in urine sediment by light microscopy 1+ NEGATIVE Urine ketones detection by automated test strip 4+ NEGATIVE Urine nitrite detection by test strip NEGATIVE NEGATIVE Urine total bilirubin detection by test strip NEGATIVE NEGATIVE Urine urobilinogen measurement by automated test strip (mass/volume) NORMAL NORMAL Urine leukocyte esterase detection by dipstick 3+ NEGATIVE Automated urine sediment erythrocyte count by microscopy (number/high power field) [HPF] NRG Automated urine sediment leukocyte count by microscopy (number/high power field) [HPF] NRG Bacteria detection in urine sediment by light microscopy MODERATE NRG Squamous epithelial cells detection in urine sediment by light microscopy 25-50 NRG Crystals detection in urine sediment by light microscopy NONE NRG Casts detection in urine sediment by light microscopy NONE NRG Mucus detection in urine sediment by light microscopy MODERATE NRG Complete urinalysis with reflex to culture YES NRG Bacterial urine culture - 05/18/19 09:30 Bacterial urine culture 3 OR MORE NRG COLONY COUNT 60,000 cfu/ml NRG FTX;REPORTABLE (GRAM POSITIVE) SUGGESTING PROBABLE NRG FREE TEXT ENTRY 2 COLLECTION CONTAMINATION WITH SKIN NRG FREE TEXT ENTRY 3 SARAH. NO SUSCEPTIBILITY PERFORMED NRG Complete blood count (CBC) with automated white blood cell (WBC) differential - 05/19/19 06:11 Blood leukocytes automated count (number/volume) 15.8 10*3/uL 4.3-11.0 Blood erythrocytes automated count (number/volume) 3.80 10*6/uL 4.35-5.85 Venous blood hemoglobin measurement (mass/volume) 12.3 g/dL 11.5-16.0 Blood hematocrit (volume fraction) 37 % 35-52 Automated erythrocyte mean corpuscular volume 97 [foz_us] 80-99 Automated erythrocyte mean corpuscular hemoglobin (mass per erythrocyte) 32 pg 25-34 Automated erythrocyte mean corpuscular hemoglobin concentration measurement (mass/volume) 33 g/dL 32-36 Automated erythrocyte distribution width ratio 14.6 % 10.0- 14.5 Automated blood platelet count (count/volume) 213 10*3/uL 130-400 Automated blood platelet mean volume measurement 10.3 [foz_us] 7.4-10.4 Automated blood neutrophils/100 leukocytes 81 % 42-75 Automated blood lymphocytes/100 leukocytes 9 % 12-44 Blood monocytes/100 leukocytes 10 % 0-12 Automated blood eosinophils/100 leukocytes 0 % 0-10 Automated blood basophils/100 leukocytes 0 % 0-10 Blood neutrophils automated count (number/volume) 12.8 10*3 1.8-7.8 Blood lymphocytes automated count (number/volume) 1.3 10*3 1.0-4.0 Blood monocytes automated count (number/volume) 1.6 10*3 0.0- 1.0 Automated eosinophil count 0.0 10*3/uL 0.0-0.3 Automated blood basophil count (count/volume) 0.0 10*3/uL 0.0-0.1 Comprehensive metabolic panel - 05/19/19 06:11 Serum or plasma sodium measurement (moles/volume) 139 mmol/L 135-145 Serum or plasma potassium measurement (moles/volume) 3.7 mmol/L 3.6-5.0 Serum or plasma chloride measurement (moles/volume) 116 mmol/L 98-107 Carbon dioxide 7 mmol/L 21-32 Serum or plasma anion gap determination (moles/volume) 16 mmol/L 5-14 Serum or plasma urea nitrogen measurement (mass/volume) 5 mg/dL 7-18 Serum or plasma creatinine measurement (mass/volume) 0.71 mg/dL 0.60-1.30 Serum or plasma urea nitrogen/creatinine mass ratio 7 NRG Serum or plasma creatinine measurement with calculation of estimated glomerular filtration rate > NRG Serum or plasma glucose measurement (mass/volume) 89 mg/dL 70-105 Serum or plasma calcium measurement (mass/volume) 9.4 mg/dL 8.5-10.1 Serum or plasma total bilirubin measurement (mass/volume) 0.4 mg/dL 0.1-1.0 Serum or plasma alkaline phosphatase measurement (enzymatic activity/volume) 87 U/L 40-136 Serum or plasma aspartate aminotransferase measurement (enzymatic activity/volume) 11 U/L 5-34 Serum or plasma alanine aminotransferase measurement (enzymatic activity/volume) 11 U/L 0-55 Serum or plasma protein measurement (mass/volume) 6.6 g/dL 6.4-8.2 Serum or plasma albumin measurement (mass/volume) 3.8 g/dL 3.2-4.5 CALCIUM CORRECTED 9.6 mg/dL 8.5-10.1 Hemoglobin A1c - 05/19/19 06:11 Blood hemoglobin A1C measurement (mass/volume) 4.3 % 4.0-5.6 MEAN BLOOD GLUCOSE 77 % <=126 Complete blood count (CBC) with automated white blood cell (WBC) differential - 06/04/19 15:30 Blood leukocytes automated count (number/volume) 10.0 10*3/uL 4.3-11.0 Blood erythrocytes automated count (number/volume) 3.56 10*6/uL 4.35-5.85 Venous blood hemoglobin measurement (mass/volume) 11.4 g/dL 11.5-16.0 Blood hematocrit (volume fraction) 34 % 35-52 Automated erythrocyte mean corpuscular volume 96 [foz_us] 80-99 Automated erythrocyte mean corpuscular hemoglobin (mass per erythrocyte) 32 pg 25-34 Automated erythrocyte mean corpuscular hemoglobin concentration measurement (mass/volume) 33 g/dL 32-36 Automated erythrocyte distribution width ratio 15.3 % 10.0- 14.5 Automated blood platelet count (count/volume) 231 10*3/uL 130-400 Automated blood platelet mean volume measurement 9.6 [foz_us] 7.4-10.4 Automated blood neutrophils/100 leukocytes 72 % 42-75 Automated blood lymphocytes/100 leukocytes 17 % 12-44 Blood monocytes/100 leukocytes 11 % 0-12 Automated blood eosinophils/100 leukocytes 1 % 0-10 Automated blood basophils/100 leukocytes 0 % 0-10 Blood neutrophils automated count (number/volume) 7.2 10*3 1.8-7.8 Blood lymphocytes automated count (number/volume) 1.7 10*3 1.0-4.0 Blood monocytes automated count (number/volume) 1.1 10*3 0.0- 1.0 Automated eosinophil count 0.1 10*3/uL 0.0-0.3 Automated blood basophil count (count/volume) 0.0 10*3/uL 0.0-0.1 Blood type T Indirect antibody screen panel - 06/04/19 15:30 WRISTBAND NUMBER [id number] NRG ABO+Rh group OP NRG Blood group antibody screen NEGATIVE NRG Encounters ACCT No. Visit Date/Time Discharge Status Pt. Type Provider Facility Loc./Unit Complaint [id number] 05/18/2019 07:10:00 05/19/2019 10:55:00 DIS Outpatient BERNARDO ELY MD Via [facility] LDRP VOMITING,NOT FEELING MOVEMENT [id number] 05/14/2019 19:59:00 05/15/2019 00:00:00 DIS Outpatient BERNARDO ELY MD [facility] WSo VOMITING/ABD PAIN [id number] 03/01/2019 13:27:00 03/01/2019 23:59:59 CLS Outpatient BERNARDO ELY MD [facility] RAD SURVEY [id number] 12/10/2018 09:23:00 12/10/2018 23:59:59 CLS Outpatient BERNARDO ELY MD [facility] RAD DATING [id number] 09/14/2017 18:50:00 09/16/2017 17:10:00 DIS Inpatient BERNARDO ELY MD [facility] LDRP INDUCED [id number] 07/18/2017 15:29:00 07/18/2017 17:01:00 DIS Emergency ZAYDA DEYSI K [facility] ER SOA;NUMBNESS IN HANDS;BURNING IN LEGS [id number] 07/18/2017 15:14:00 07/18/2017 15:28:00 DIS Outpatient BERNARDO ELY MD [facility] WSo SOA;NUMBNESS IN HANDS;BURNING IN LEGS [id number] 04/18/2017 14:00:00 04/18/2017 23:59:59 CLS Outpatient BERNARDO ELY MD [facility] RAD SURVEY [id number] 04/09/2017 19:42:00 04/09/2017 22:24:00 DIS Emergency JIL RODRIGUEZ MD [facility] ER VAGINAL BLEEDING 17 WEEKS [id number] 02/22/2017 20:24:00 02/22/2017 22:13:00 DIS Emergency GABRIELLA THOMAS [facility] ER 11 WKS PREG, VOMITING [id number] 01/20/2017 09:32:00 01/20/2017 23:59:59 CLS Outpatient BERNARDO ELY MD [facility] RAD DATING [id number] 01/04/2014 12:42:00 01/04/2014 14:05:00 DIS Emergency ORESTES CASTAÑEDA MD [facility] ER ANSON HAND PAIN/STIFFNESS/NUMBNESS [id number] 07/25/2013 13:53:00 07/25/2013 17:53:00 DIS Emergency ALY WESTBROOK MD [facility] ER VOMITING ABD PAIN [id number] 07/16/2013 16:39:00 07/16/2013 20:37:00 DIS Emergency DAVY DONG, LILLY Torre [facility] ER SORE THROAT,FEVER,HEADACHE [id number] 07/13/2013 03:02:00 07/14/2013 12:26:00 DIS Inpatient SHAI DONG, COMFORT Mackey [facility] 4TH SEVERE PHARYNGITIS,OTITIS MEDIA [id number] 07/11/2013 14:31:00 07/11/2013 23:59:59 CLS Outpatient [id number] 06/21/2013 23:59:00 06/22/2013 02:10:00 DIS Emergency JENNIFER DONG, JIL Marcial [facility] ER PASSED OUT [id number] 06/04/2019 16:36:00 ACT Inpatient SOLIS DONG, BERNARDO Johnson [facility] LDRP DEMISE [id number] 03/27/2015 18:02:00 03/27/2015 23:59:59 CLS Outpatient EUGENE GUERRERO APRN [id number] 06/22/2014 13:14:00 06/22/2014 23:59:59 CLS Outpatient CUAUHTEMOC MOULTON MD [id number] 05/31/2014 09:42:00 05/31/2014 23:59:59 CLS Outpatient ALEXANDRIA GEE APRN [id number] 04/27/2014 08:35:00 04/27/2014 23:59:59 CLS Outpatient EUGENE GUERRERO APRN [id number] 12/23/2013 13:37:00 12/23/2013 23:59:59 CLS Outpatient CUAUHTEMOC MOULTON MD [id number] 07/27/2013 10:08:00 Document Registration [id number] 02/09/2018 14:00:00 02/09/2018 23:59:59 CLS Outpatient CUAUHTEMOC MOULTON MD [facility]
[2019-06-04] MEDS ORDERED: CATHETER FLUSH 10 ML SYR IV SCH (22:00)
[2019-06-05] VITALS (42 sets, daily range): BP systolic 81–115; BP diastolic 48–76
[2019-06-05] MEDS: MISOPROSTOL 100 MCG (CYTOTEC) TAB PO SCH ×2 (00:59→05:05)
[2019-06-05] MEDS: EPIDURAL (SUFENTA 0.6MCG/ML BUPIVA 0.125%) 100 ML BAG EPI SCH (01:12)
[2019-06-05] MEDS: D5 LR IV SOLUTION 1,000 ML IV SCH (03:21)
[2019-06-05] MEDS ORDERED: MEPIVACAINE (CARBOCAINE) 2% 50 ML VIAL ONE (07:49)
[2019-06-05] MEDS ORDERED: OXYTOCIN/NORMAL SALINE 500 ML IV ONE ×2 (07:49→08:33)
--- NOTE | 2019-06-05 08:19 | OB Labor & Delivery Record ---
L&D History Date of Service Date of Service: Jun 05, 2019 History Expected Date of Delivery: Jun 20, 2019 Gestational Age in Weeks: 33 Hx : 2 Hx Para: 2 Complications Events: Labor Augmentation No movements x 25hr on 06/04/2019. OB US revealed demise on 06/04/2019 Operative Indications (Cesarea: N/A-Vaginal Delivery L&D Stage1 Stage One Onset of Labor - Date: Jun 04, 2019 Onset of Labor - Time: 16:00 Monitors and Tracing Monitor Mode: None Heart Rate: 0 Station: -3 Vital Signs VS - Last 72 Hours, by Label 06/04/19 06/04/19 06/04/19 06/04/19 13:45 15:45 16:52 17:16 Temp 98.2 98.3 98.9 Pulse 134 110 106 84 Resp 20 20 20 20 B/P (MAP) 111/77 (88) 106/57 (73) 102/56 (71) Pulse Ox 98 94 O2 Delivery Room Air Room Air Room Air Room Air 06/04/19 06/04/19 06/04/19 06/04/19 19:15 19:30 19:45 20:00 Temp 98.6 Pulse 95 101 96 100 Resp 18 18 18 18 B/P (MAP) 103/54 (70) 93/53 (66) 100/59 (73) 93/52 (66) O2 Delivery Room Air Room Air Room Air Room Air 06/04/19 06/04/19 06/04/19 06/04/19 20:15 20:30 20:45 21:00 Pulse 85 116 93 Resp 18 18 18 18 B/P (MAP) 96/50 (65) 95/52 (66) 101/55 (70) 97/54 (68) O2 Delivery Room Air Room Air Room Air Room Air 06/04/19 06/04/19 06/04/19 06/04/19 21:15 21:30 21:45 22:00 Pulse 96 103 100 106 Resp 18 18 18 18 B/P (MAP) 95/53 (67) 89/53 (65) 102/65 (77) 95/58 (70) O2 Delivery Room Air Room Air Room Air Room Air 06/04/19 06/04/19 06/04/19 06/04/19 22:15 22:30 22:45 23:00 Pulse 99 105 104 94 Resp 18 18 18 18 B/P (MAP) 99/57 (71) 96/51 (66) 94/58 (70) 96/55 (69) O2 Delivery Room Air Room Air Room Air Room Air 06/04/19 06/04/19 06/04/19 06/05/19 23:15 23:30 23:45 00:00 Pulse 104 111 93 111 Resp 18 18 18 18 B/P (MAP) 99/57 (71) 102/58 (73) 101/54 (70) 102/57 (72) O2 Delivery Room Air Room Air Room Air Room Air 06/05/19 06/05/19 06/05/19 06/05/19 00:15 00:30 00:45 01:05 Temp 97.6 Pulse 94 103 90 87 Resp 18 18 18 18 B/P (MAP) 98/57 (71) 103/55 (71) 98/50 (66) 101/55 (70) O2 Delivery Room Air Room Air Room Air Room Air 06/05/19 06/05/19 06/05/19 06/05/19 01:10 01:15 01:20 01:25 Pulse 91 101 89 82 Resp 18 18 18 18 B/P (MAP) 99/56 (70) 99/54 (69) 101/51 (68) 98/54 (69) O2 Delivery Room Air Room Air Room Air Room Air 06/05/19 06/05/19 06/05/19 06/05/19 01:45 02:00 02:15 02:30 Pulse 78 83 83 90 Resp 18 18 18 18 B/P (MAP) 98/56 (70) 98/53 (68) 95/54 (68) 98/56 (70) O2 Delivery Room Air Room Air Room Air Room Air 06/05/19 06/05/19 06/05/19 06/05/19 02:45 03:00 03:15 03:30 Pulse 87 86 82 80 Resp 18 18 18 18 B/P (MAP) 97/57 (70) 97/57 (70) 93/55 (68) 98/53 (68) O2 Delivery Room Air Room Air Room Air Room Air 06/05/19 06/05/19 06/05/19 06/05/19 03:45 04:00 04:15 04:20 Temp 97.8 Pulse 81 86 95 85 Resp 18 18 18 18 B/P (MAP) 97/54 (68) 98/56 (70) 90/53 (65) 106/68 (81) O2 Delivery Room Air Room Air Room Air Room Air 06/05/19 06/05/19 06/05/19 06/05/19 04:25 04:30 04:50 05:05 Pulse 102 90 81 90 Resp 18 18 18 18 B/P (MAP) 101/76 (84) 99/67 (78) 102/57 (72) 96/54 (68) O2 Delivery Room Air Room Air Room Air Room Air 06/05/19 06/05/19 06/05/19 06/05/19 05:22 05:38 05:51 06:07 Pulse 79 89 87 88 Resp 18 18 18 18 B/P (MAP) 101/56 (71) 94/58 (70) 91/54 (66) 92/56 (68) O2 Delivery Room Air Room Air Room Air Room Air 06/05/19 06/05/19 06/05/19 06/05/19 06:21 06:38 07:00 07:15 Pulse 90 88 90 85 Resp 18 18 18 18 B/P (MAP) 92/57 (69) 96/54 (68) 99/57 (71) 94/55 (68) O2 Delivery Room Air Room Air Room Air Room Air Rupture of Membranes Spontaneous Ruture of Membrane: No Amniotic Membrane Rupture Time: 07:50 Amniotic Membrane Fluid Desc.: Bloody Induction/Anesthesia Epidural Cath Placement - Time: 1759 L&D Stage2 Stage Two Stage II Date: Jun 05, 2019 Stage II Time: 08:03 Monitors and Tracing Monitor Mode: None Heart Rate: 0 Presentation: Con Breech Cord Descript/Complications Cord Vessel Description: 3 Vessels Delivery Type Delivery Method: Spontaneous Vaginal Episiotomy/Perineal Laceration Laceraction(s)/Extensions: No Condition of Infant Condition of Infant Condition of Infant: Stillborn Exam: No Observed Abnormalities L&D Stage3 Stage Three Stage III Date: Jun 05, 2019 Stage III Time: 08:05 Placenta Delivery Placenta Delivery: Spontaneous Delivery Summary Summary Estimated blood loss (mL): 300 Condition of Delivery Examined: Cervix Examined Post Hemorrhage: No Intervention Required none BERNARDO ELY MD Jun 05, 2019 08:19
[2019-06-05] MEDS ORDERED: TETANUS,DIPTH,PERTUSS P/F (BOOSTRIX) 0.5 ML VIAL IM ONE (08:30)
[2019-06-05] MEDS ORDERED: WITCH HAZEL(TUCKS) 40 EA JAR TOP PRN (08:30)
[2019-06-05] MEDS ORDERED: BENZOCAINE/MENTHOL (DERMOPLAST) 56 ML CAN TP PRN (08:30)
[2019-06-05] MEDS ORDERED: MEASLES,MUMPS,RUBELLA 1 EA INJ SQ ONE (08:30)
--- NOTE | 2019-06-05 08:45 | NUR ---
0830 BP 103/59 p 88, FF a u/2. 0845 BP 108/89 p 90. FF @ umb. Flow rubra moderate. 0900 T 98.2 106/57 p 100. FF @ umb with moderate rubra flow. 0915 102/59 p 83 FF @ umb with moderate rubra flow. 0930 BP 95/55 p 90, FF @ umb with moderate rubra. 0945 BP 111/60 p 80, FF @ umb with moderate rubra. Family and pt tearful but very supportive. Holding baby. 1000 89/52 p 92 FF @ umb with moderate rubra. 1015 96/64 p 80, FF @ umb with moderate rubra flow. Pad changed x 1 - saturated. 1215 FF @ umb. BP 107/55 p 74. Pt stood at bedside but unable to walk due to weakness in lt leg. No urge to void. Will wait to transfer to until she can ambulate. Baby remains in room.
[2019-06-05] MEDS: DOCUSATE SODIUM 100 MG (COLACE) CAP PO SCH (10:10)
[2019-06-05] MEDS: ACETAMINOPHEN 500 MG TAB (TYLENOL) PO SCH ×3 (10:10→23:00)
[2019-06-05] MEDS: IBUPROFEN 800 MG (MOTRIN) TAB PO SCH ×3 (12:15→23:00)
[2019-06-05] MEDS ORDERED: CATHETER FLUSH 10 ML SYR IV SCH (14:00)
--- NOTE | 2019-06-05 14:30 | NUR ---
Up to wheelchair and to BR - voided large amt. Used jim bottle, Tucks and jim pad. Left thigh heavy and unable to walk with it. Parents refuse autopsy and wish to proceed with [facility] for free service. They may consider purchasing urn for ashes.
--- NOTE | 2019-06-05 15:20 | NUR ---
Spoke with Nadja from [facility] regarding demise and desiring there services for cremation. Info given with return call from Prakash, digital sales director. They plan on sweet pickle maker of body after 5 pm to allow other family members to visit.
--- NOTE | 2019-06-05 16:30 | NUR ---
CARE ASSUMED OF THIS PT. PT WANTING TO STAY IN LABOR ROOM UNTIL INFANT PICKED UP. DENIES ANY WANTS OR NEEDS AT THIS TIME. FAMILY AT BEDSIDE. INFANT IN CUDDLE COT AT BEDSIDE. PT TEARFUL.
--- NOTE | 2019-06-05 17:10 | NUR ---
BATH LUDWIN PROCUREMENT DIRECTOR HERE TO FISH SEINER FETUS. TALKING WITH FAMILY AND FINAL GOODBYES.
--- NOTE | 2019-06-05 17:14 | NUR ---
INFANT TAKEN IN PORTABLE BASSINET BY BATH LUDWIN STAFF.
--- NOTE | 2019-06-05 17:25 | NUR ---
PT TRANSFERRED AMB (PER HER REQUEST) TO ROOM 304 ACC BY THIS RN. FAMILY BRINGING BELONGINGS. ORIENTED TO SURROUNDINGS, CALL LIGHT OPERATION, AND ROOM SERVICE PROCEDURE. WANTING TO BE LEFT ALONE AT THIS TIME.
--- NOTE | 2019-06-05 18:12 | NUR ---
PT TEARFUL AND PLACED ARCHITECTURAL DRAFTER LIGHT. C/O TAILBONE PAIN RATED 8/10. SCHEDULED MOTRIN GIVEN WELL OXYIR 5 MG P.O. INSPECTED AREA. SKIN APPEARS EXCORIATED/CHAPPED JUST BENEATH TAILBONE AND ABOVE RECTUM. THIS RN CLEANED AREA OF OLD BLOOD. GENTLE SVE BY THIS RN TO PALPATE FOR POSSIBLE HEMATOMA. NOTHING NOTED. FF U/2. VAG FLOW LT RUBRA. ENCOURAGED PT TO TRY TO VOID IN CASE BLADDER IS FULL AND SHE ISN'T AWARE.
--- NOTE | 2019-06-05 18:30 | NUR ---
PT VOIDED WITHOUT PROBLEMS. VSS. BACK TO BED. ICE PACK PLACED [facility]. ENCOURAGED PT TO TRY TO RELAX.
--- NOTE | 2019-06-05 18:39 | NUR ---
DR. ELY NOTIFIED OF PT'S C/O TAILBONE PAIN/PRESSURE. NO NEW ORDERS.
--- NOTE | 2019-06-05 18:53 | NUR ---
STATES STARTING TO FEEL BETTER WITH PAIN MEDICATION. S.O. AT BEDSIDE.
--- NOTE | 2019-06-05 21:50 | NUR ---
Pt in tears, reports coccyx being tender to touch, unable to lie flat or sit. Pt lying on side at this time, oxy IR given, see emar.
--- NOTE | 2019-06-05 22:15 | NUR ---
Pt up to bathroom, rn poc to look at area while pt standing r.t proper body alignment. Possible swelling noted to mid sacral area, where pt reports most of pain upon palpation, gluteal fold examined near coccyx, area cleaned per rn r/t dried blood at area, fold somewhat reddened, site has smaller than dime size, in tact blister noted on L side. Pain medication administered per orders at proper times, see emar. RN previously supplied pt with ice diaper, without relief, pt assisted stand by back to bed, suggested pt lie on abdomen, pt reports somewhat comfortable, warm blankets applied to site. Epidural site covered with band aid, no s/s of abnormality, site can be seen with bend of band aid upon pt movement, site wnl and pt denies irritation at inj site.
--- NOTE | 2019-06-06 02:00 | NUR ---
This rn woke pt for prn pain medication. no ss distress noted.
[2019-06-06] MEDS: IBUPROFEN 800 MG (MOTRIN) TAB PO SCH (05:20)
[2019-06-06 05:21] VITALS: BP 87/57
--- NOTE | 2019-06-06 05:25 | NUR ---
This rn woke pt for scheduled pain medicine. vss.
[2019-06-06 06:45] LABS: BASOPHILS % (AUTO) 0 % (0-10); EOSINOPHILS # (AUTO) 0.2 10^3/uL (0.0-0.3); EOSINOPHILS % (AUTO) 2 % (0-10); HEMATOCRIT 28 % (35-52); HEMOGLOBIN 9.3 G/DL (11.5-16.0); LYMPHOCYTES # (AUTO) 2.5 X 10^3 (1.0-4.0); LYMPHOCYTES % (AUTO) 33 % (12-44); MEAN CORPUSCULAR HEMOGLOBIN 32 PG (25-34); MEAN CORPUSCULAR HGB CONC 33 G/DL (32-36); MEAN CORPUSCULAR VOLUME 98 FL (80-99); MEAN PLATELET VOLUME 9.7 FL (7.4-10.4); MONOCYTES # (AUTO) 0.8 X 10^3 (0.0-1.0); MONOCYTES % (AUTO) 10 % (0-12); NEUTROPHILS # (AUTO) 4.1 X 10^3 (1.8-7.8); NEUTROPHILS % (AUTO) 54 % (42-75); PLATELET COUNT 152 10^3/uL (130-400); WHITE BLOOD COUNT 7.5 10^3/uL (4.3-11.0)
--- NOTE | 2019-06-06 07:30 | NUR ---
DR. ELY HERE TO SEE PT. PLAN FOR DISCHARGE. EXAMINED AREA OF TAILBONE.
[2019-06-06] MEDS ORDERED: OXC5T PO (07:53)
--- NOTE | 2019-06-06 07:54 | Discharge Inst-Women's Service ---
Discharge Inst-Women's Serv Depart Medication/Instructions New, Converted or Re-Newed RX: RX on Chart Consults/Follow Up Additional Follow Up: Yes (Dr Ely in 1 week) Activity Driving Instructions: You May Drive Nothing Inside Vagina: No [place] (for 6 weeks) Diet Discharge Diet: Regular Diet Return to The Hospital For: as below Symptoms to Report to : Bleeding Excessive, Fever Over 101 Degrees F, Vaginal Discharge Foul For Any Problems or Questions: Contact Your Physician BERNARDO ELY MD Jun 06, 2019 07:54
[2019-06-06 08:00] VITALS: BP 97/61
--- NOTE | 2019-06-06 08:00 | NUR ---
A.M. ASSESSMENT COMPLETED. VSS. ANXIOUS TO GO HOME.
--- NOTE | 2019-06-06 08:02 | Discharge Summary ---
Diagnosis/Chief Complaint Date of Admission Jun 04, 2019 at 16:36 Date of Discharge June 06, 2019 Discharge Date: Jun 06, 2019 Discharge Time: 11:00 Admission Diagnosis Admission Diagnosis 1. demise at 33 weeks gestation Discharge Diagnosis 1. demise at 33 weeks gestation 2. Coccyx strain or fracture Reason Hospital Visit 33-year-old 2 term 1P1 now L1 who initially presented to labor and delivery for heart tone check after she noticed no movements for 24 hours. She was found by Doppler and confirmed by ultrasound to have a demise at 33 weeks gestation. She was admitted for Cytotec and delivery. Discharge Summary-OBS Procedures 1. Epidural per anesthesia 2. Spontaneous vaginal delivery breech presentation Discharge Physical Examination Allergies: Coded Allergies: Penicillins (Unverified Allergy, Mild, RASH, 07/13/13) PER LILLIAM RECEIVED ROCEPHIN IN ER 07/12; NO PROBLEMS SO FAR Vitals & I&Os Vital Signs Date Time Temp Pulse Resp B/P (MAP) Pulse Ox O2 Delivery O2 Flow Rate FiO2 06/06/19 05:21 98.2 70 18 87/57 (67) 99 Room Air General Appearance: No Acute Distress Respiratory: Clear to Auscultation Cardiovascular: Regular Rate Abdominal: Soft (with uterus firm) Extremities: Other (she has tenderness over the coccyx) Hospital Course Was the Problem List Reviewed?: Yes patient received Cytotec 100 g every 4 hours for the first 12 hours. She ultimately went into full labor and completely dilated in the morning of June 05, 2019. She ultimately delivered a nonviable female with breech presentation over an intact perineum. She was allowed to keep her daughter as long as she wanted to during the course of the morning on June 05, 2019. Ultimately the was released to bathroom a home. Patient's hemoglobin prior to induction was 11.4 and following delivery 9.3. Patient was without dizziness or lightheadedness the day after delivery. She did complain of tenderness over the buttocks and examination revealed tenderness over the coccyx. There was no bruising noted. All questions were answered on the morning of June 06, 2019. She will follow-up in 1 week. All questions were answered. Pending Labs Laboratory Tests 06/06/19 06:20: White Blood Count 7.5, Red Blood Count 2.88, Hemoglobin 9.3, Hematocrit 28, Mean Corpuscular Volume 98, Mean Corpuscular Hemoglobin 32, Mean Corpuscular Hemoglobin Concent 33, Red Cell Distribution Width 15.0, Platelet Count 152, Mean Platelet Volume 9.7, Neutrophils (%) (Auto) 54, Lymphocytes (%) (Auto) 33, Monocytes (%) (Auto) 10, Eosinophils (%) (Auto) 2, Basophils (%) (Auto) 0, Neutrophils # (Auto) 4.1, Lymphocytes # (Auto) 2.5, Monocytes # (Auto) 0.8, Eosinophils # (Auto) 0.2, Basophils # (Auto) 0.0 Discharge Instructions to patient/family Please see electronic discharge instructions given to patient. Discharge Medications Reviewed and agree with Discharge Medication list on patient's Discharge Instruction sheet Clinical Quality Measures DVT/VTE Risk/Contraindication: Risk Factor Score Per Nursin RFS Level Per Nursing on Admit: 1=Low/No VTE PPX BERNARDO ELY MD Jun 06, 2019 08:02
[2019-06-06] MEDS: ACETAMINOPHEN 500 MG TAB (TYLENOL) PO SCH (08:11)
[2019-06-06] MEDS: DOCUSATE SODIUM 100 MG (COLACE) CAP PO SCH (08:11)
--- NOTE | 2019-06-06 08:30 | Anesthesia-Regional Post-Op ---
Regional Patient Condition Mental Status: Alert, Oriented x3 Circulation: Same as Pre-Op Headache: Absent Sensation: Full Recovery Motor Block: Absent Post Op Complications Complications None Follow Up Care/Instructions Patient Instructions None needed. Anesthesia/Patient Condition Patient is doing well, no complaints, stable vital signs, no apparent adverse anesthesia problems. No complications reported per nursing. D/C home per [facility] Criteria: Yes LIO IRVING CRNA Jun 06, 2019 08:30
--- NOTE | 2019-06-06 10:10 | NUR ---
DISCHARGE INSTRUCTIONS REVIEWED WITH COPY TO PT. RX GIVEN. STATES UNDERSTANDING OF ALL INSTRUCTIONS AND NEED TO F/U IN [address] ELY.
[2019-06-06 10:20] VITALS: BP 97/61
--- NOTE | 2019-06-06 10:20 | NUR ---
DISMISSED AMB FROM WS TO FAMILY CAR IN STABLE CONDITION ACC BY CAROLINE VELASQUEZ.
== END 2019-06-06 10:20 | disposition home or self-care (01) | DRG 807 ==
LOC: WSo 13:39 → LDRP 13:40 → WSo 16:35 → LDRP 16:36 → WS 06-05 17:20
PROVIDERS: ADMIT Family Medicine; ATTEND Family Medicine
PROC: 3E0DXGC Introduction of Other Therapeutic Substance into Mouth and Pharynx, External Approach (ICD-10-PCS; 2019-06-04)
PROC: 10E0XZZ Delivery of Products of Conception, External Approach (ICD-10-PCS; principal; 2019-06-05)
DX: O36.4XX0 Maternal care for intrauterine death, not applicable or unspecified (principal); O32.1XX0 Maternal care for breech presentation, not applicable or unspecified; O9A.22 Injury, poisoning and certain other consequences of external causes complicating childbirth; S33.8XXA Sprain of other parts of lumbar spine and pelvis, initial encounter; Z3A.33 33 weeks gestation of pregnancy; Z37.1 Single stillbirth; Z88.0 Allergy status to penicillin; Z87.891 Personal history of nicotine dependence
CPT/HCPCS: 36415; 76805; 85025; 86850; 86900; 86901; 99212

== ENCOUNTER → 2019-09-27 | Outpatient (CLI) | payer MEDICAID ==
[~2019-09-27] MED LIST changes: +FAMO20TA3 PO; +FERR325T18 PO; +OXC5T PO; +POTA-53 PO
--- NOTE | 2019-09-27 17:56 | Diagnostic Imaging Report ---
INDICATION: Size and dates, patient. OB sonography performed with transabdominal views. There is no prior study during this for comparison. A single live intrauterine fetus is seen measuring 8 weeks 4 days by crown-rump length with heart rate of 176 bpm. There is no evidence of subchorionic hemorrhage. The left ovary could not be visualized. Right ovary contains a 2 cm simple cyst. There is no free fluid. Sonographic EDC is 05/04/2020. IMPRESSION: Single live intrauterine fetus measuring 8 weeks 4 days in size with no detectable abnormalities. Recommend follow-up later in for anatomical survey. A 2 cm corpus luteal cyst in the right ovary is noted. Dictated by: Dictated on workstation # [id number]
== END ==
LOC: RAD 14:33
PROVIDERS: ATTEND Family Medicine
DX: O34.81 Maternal care for other abnormalities of pelvic organs, first trimester (principal); N83.291 Other ovarian cyst, right side; Z3A.08 8 weeks gestation of pregnancy
CPT/HCPCS: 76801

== ENCOUNTER → 2019-12-06 | Outpatient (CLI) | payer MEDICAID ==
--- NOTE | 2019-12-06 15:51 | Diagnostic Imaging Report ---
INDICATION: survey. TECHNIQUE: Multiple real-time grayscale images were obtained over the gravid uterus. COMPARISON: 09/27/2019. FINDINGS: There is a single live fetus in a transverse presentation, head to the maternal right. heart rate was recorded at 144 bpm. Placenta is posterior. Amniotic fluid volume is normal. survey demonstrates kidneys, bladder, and stomach to be unremarkable. The brain is unremarkable. There is a three-vessel cord with normal insertion. spine is unremarkable. Four-chamber heart view is suboptimal on today's study. Biometrical measurements are as follows: Biparietal 3.90 cm, age 18 weeks 0 days. Head circumference 15.51 cm, age 18 weeks 4 days. Abdominal circumference 12.70 cm, age 18 weeks 2 days. Femur length 2.71 cm, age 18 weeks 2 days. Sonographic estimate age: 18 weeks 2 days. Sonographic estimated date of delivery: 05/06/2020. Estimated Weight: 232 gm (+/- 34 gm). LMP percentile: 29%. heart rate: 144 beats per minute. number: 1 of 1. IMPRESSION: Single live IUP at 18 weeks 2 days gestational age demonstrating normal interval growth when compared with prior exam. survey is unremarkable although four-chamber heart view was suboptimal today due to position. Follow-up could be performed. No other significant abnormality is seen. Dictated by: Dictated on workstation # [id number]
== END ==
LOC: RAD 09:32
PROVIDERS: ATTEND Family Medicine
DX: Z36.89 Encounter for other specified antenatal screening (principal); Z3A.18 18 weeks gestation of pregnancy
CPT/HCPCS: 76805

== ENCOUNTER 2019-12-28 22:16 | Outpatient (CLI) | payer MEDICAID ==
[~2019-12-28] VITALS: Ht 162.6 cm; Wt 71.0 kg
--- NOTE | 2019-12-28 22:24 | NUR ---
SHANTANU GUZMAN presented to unit via ambulatory from ED, accompanied by s/o, with c/o CRAMPING. SHANTANU GUZMAN weighed, gowned, voided, and to bed. EFHM and TOCO applied, VS taken. SHANTANU GUZMAN oriented to bed controls, call light, TV, heat, and A/C controls. above details and further assessments carried out per avinash calvert.
[2019-12-28] MEDS ORDERED: NITR-65 PO (22:28)
--- NOTE | 2019-12-28 22:28 | NUR ---
pt reports current a/b treatment and provides rx bottle of macrobid 100mg po bid x7 days, 3 pills noted in bottle.
[2019-12-28 22:38] LABS: BILIRUBIN,URINE NEGATIVE (NEGATIVE); CLARITY,URINE CLEAR; COLOR,URINE YELLOW; GLUCOSE, URINE (UA) NEGATIVE (NEGATIVE); KETONES,URINE NEGATIVE (NEGATIVE); LEUKOCYTE ESTERASE ,URINE NEGATIVE (NEGATIVE); NITRITE,URINE NEGATIVE (NEGATIVE); PH,URINE 5.5 (5-9); PROTEIN,URINE NEGATIVE (NEGATIVE)
[2019-12-28 22:41] VITALS: BP 130/59
[2019-12-28 22:44] LABS: AMORPHOUS SEDIMENT,UR FEW AMOR URATES /LPF; BACTERIA,URINE TRACE /HPF; CALCIUM OXALATE CRYSTALS,UR FEW /LPF; SQUAMOUS EPITHELIAL CELL,UR 0-2 /HPF
[2019-12-28] MEDS ORDERED: D5 LR IV SOLUTION 1,000 ML IV ONE (22:51)
[2019-12-28] MEDS ORDERED: diphenhydrAMINE 50 MG/ML INJ (BENADRYL) ONE (22:53)
[2019-12-28] MEDS ORDERED: FAMOTIDINE 20MG/2ML IV (PEPCID) ONE (22:53)
[2019-12-28] MEDS ORDERED: cefTRIAXone FOR IV USE 1,000 MG in WATER (STERILE) FOR INJECTION 10 ML IV ONE (23:00)
[2019-12-28] MEDS ORDERED: cefTRIAXone 1,000 MG IV (ROCEPHIN) VIAL ONE (23:13)
[2019-12-28] MEDS: D5 LR IV SOLUTION 1,000 ML IV SCH (23:15)
[2019-12-28] MEDS ORDERED: WATER (STERILE) FOR INJECTION 10 ML ONE (23:15)
[2019-12-28 23:16] LABS: BASOPHILS % (AUTO) 0 % (0-10); EOSINOPHILS # (AUTO) 0.1 10^3/uL (0.0-0.3); EOSINOPHILS % (AUTO) 1 % (0-10); HEMATOCRIT 33 % (35-52); HEMOGLOBIN 11.3 G/DL (11.5-16.0); LYMPHOCYTES # (AUTO) 2.4 X 10^3 (1.0-4.0); LYMPHOCYTES % (AUTO) 21 % (12-44); MEAN CORPUSCULAR HEMOGLOBIN 33 PG (25-34); MEAN CORPUSCULAR HGB CONC 35 G/DL (32-36); MEAN CORPUSCULAR VOLUME 95 FL (80-99); MEAN PLATELET VOLUME 9.6 FL (7.4-10.4); MONOCYTES # (AUTO) 1.1 X 10^3 (0.0-1.0); MONOCYTES % (AUTO) 9 % (0-12); NEUTROPHILS # (AUTO) 7.8 X 10^3 (1.8-7.8); NEUTROPHILS % (AUTO) 69 % (42-75); PLATELET COUNT 219 10^3/uL (130-400); RED CELL DISTRIBUTION WIDTH 14.3 % (10.0-14.5); WHITE BLOOD COUNT 11.4 10^3/uL (4.3-11.0)
[2019-12-28 23:38] LABS: ALANINE AMINOTRANSFERASE 13 U/L (0-55); ALBUMIN 3.8 GM/DL (3.2-4.5); ALKALINE PHOSPHATASE 45 U/L (40-136); BILIRUBIN,TOTAL 0.3 MG/DL (0.1-1.0); BUN/CREATININE RATIO 22; CALCIUM 8.9 MG/DL (8.5-10.1); CARBON DIOXIDE 14 MMOL/L (21-32); CHLORIDE 109 MMOL/L (98-107); CREATININE SERUM 0.54 MG/DL (0.60-1.30); GFR ESTIMATED > 60; GLUCOSE 77 MG/DL (70-105); POTASSIUM 4.7 MMOL/L (3.6-5.0); SODIUM 136 MMOL/L (135-145); TOTAL PROTEIN 6.9 GM/DL (6.4-8.2)
[2019-12-29 04:45] VITALS: BP 95/52
[2019-12-29] MEDS: D5 LR IV SOLUTION 1,000 ML IV SCH (05:45)
[2019-12-29 06:57] LABS: BUN/CREATININE RATIO 15; CALCIUM 8.2 MG/DL (8.5-10.1); CARBON DIOXIDE 22 MMOL/L (21-32); CHLORIDE 109 MMOL/L (98-107); CREATININE SERUM 0.53 MG/DL (0.60-1.30); GFR ESTIMATED > 60; GLUCOSE 94 MG/DL (70-105); POTASSIUM 3.3 MMOL/L (3.6-5.0); SODIUM 138 MMOL/L (135-145)
[2019-12-29 07:32] VITALS: BP 104/55
--- NOTE | 2019-12-29 08:00 | NUR ---
A.M. ASSESSMENT COMPLETED. VSS.
[2019-12-29] MEDS ORDERED: CEPH-507 PO (09:27)
[2019-12-29] MEDS ORDERED: FLU QUADRIvalent (5+ YOA) 2019-2020 (AFLURIA) 0.5 ML IM ONE (10:00)
--- NOTE | 2019-12-29 10:14 | NUR ---
FLU VACCINE GIVEN IM IN LEFT DELTOID. SITE CLEAR.
--- NOTE | 2019-12-29 10:25 | NUR ---
DISCHARGE INSTRUCTIONS REVIEWED WITH COPY TO PT. STATES UNDERSTANDING OF ALL INSTRUCTIONS AND NEED TO F/U SCHEDULED AND NEEDED.
[2019-12-29 10:30] VITALS: BP 104/55
--- NOTE | 2019-12-29 10:30 | NUR ---
DISMISSED AMB FROM WS IN STABLE CONDITION. FAMILY MEMBER WAITNG IN CAR TO TAKE PT HOME.
--- NOTE | 2019-12-29 10:35 | Physician Query-Final Dx ---
LYNSEY LOFTON 12/29/19 1035: Clinic Account Progress/Dx Physician Query: Please give diagnosis Please include # weeks gestation Date of Service Dec 28, 2019 at 22:16 BERNARDO ELY MD 12/29/19 1553: Clinic Account Progress/Dx DIAGNOSIS: Diagnosis 1. IUP at 21 weeks gestation 2. Dehydration 3. UTI 4. Uterine irritability LYNSEY LOFTON Dec 29, 2019 10:35 BERNARDO ELY MD Dec 29, 2019 15:53
--- NOTE | 2019-12-29 16:16 | Short Stay Summary ---
History of Present Illness History of Present Illness Reason for visit/HPI 34-year-old 3 term 2 L1 female who is at 21 weeks gestation and reported cramping. She presented to the emergency department and she was sent to the obstetrics floor for monitoring during the evening of December 28, 2019. Patient admits she noted cramping coming on throughout the early evening of December 28, 2019. She denied any vaginal bleeding and she reported good movement. She has been on Macrobid for urinary tract infection diagnosed within the week before. Date of Admission December 28, 2019 for observation Date of Discharge December 29, 2019 Time Seen by Provider: 07:50 Attending Physician Jeramy Romero MD Admitting Physician Jeramy Romero MD Consult Allergies and Home Medications Allergies Coded Allergies: Penicillins (Unverified Allergy, Mild, RASH, 07/13/13) PER LILLIAM RECEIVED ROCEPHIN IN ER 07/12; NO PROBLEMS SO FAR Home Medications Cephalexin 500 Mg Capsule, 500 MG PO TID Prescribed by: JARETT CASANOVA on 12/29/19 0927 Vit W-Ca,Fe,FA(<1 mg) 1 Each Tablet, 1 EACH PO DAILY, (Reported) Patient Home Medication List Home Medication List Reviewed: Yes Past Credkwz-Nttkex-Ogulzt Hx Patient Social History Marrital Status: Alcohol Use: Denies Use Recreational Drug Use: No Smoking Status: Former Smoker Former Smoker, Quit: Dec 28, 2016 Type Used: Cigarettes 2nd Hand Smoke Exposure: No Recent Foreign Travel: No Contact w/other who traveled: No Recent Hopitalizations: No Recent Infectious Disease Expo: No Immunizations Up To Date Tetanus Booster (TDap): Unknown Pediatric: Yes Seasonal Allergies Seasonal Allergies: No Surgeries No Respiratory No Cardiovascular No Neurological No Reproductive System Expected Date of Delivery: May 04, 2020 Hx : 3 Hx Reproductive Disorders: No Sexually Transmitted Disease: No HIV/AIDS: No Female Reproductive Disorders: Denies Genitourinary No Kidney Stones Gastrointestinal No Musculoskeletal No Endocrine History of Endocrine Disorders: No HEENT History of HEENT Disorders: No Cancer No Did You Recieve Any Treatments: No Psychosocial History of Psychiatric Problem: No Integumentary History of Skin or Integumenta: No Blood Transfusions History of Blood Disorders: No Adverse Reaction to a Blood Tr: No Family Medical History Significant Family History: No Pertinent Family Hx Family Hx: Patient reports no known family medical history. Review of Systems Constitutional: see HPI Physical Exam Vital Signs Vital Signs - First Documented 12/28/19 12/29/19 22:41 04:45 Temp 36.7 Pulse 85 Resp 18 B/P (MAP) 95/52 (66) Pulse Ox 96 O2 Delivery Room Air Capillary Refill : Less Than 3 Seconds Height, Weight, BMI Height: 5'4.00" Weight: 152lbs. 0.0oz. [id number]; 26.85 BMI Method:Stated General Appearance: No Apparent Distress HEENT: Pharynx Normal Neck: Supple Respiratory: Lungs Clear Cardiovascular: Regular Rate, Rhythm Gastrointestinal: Soft, Other (Uterus was not firm. movements noted) Rectal: Deferred Short Stay Diagnosis Discharge Diagnosis-Short Stay Admission Diagnosis: 1. Intrauterine at 21 weeks gestation 2. Dehydration 3. Urinary tract infection Final Discharge Diagnosis: 1. Intrauterine at 21 weeks gestation 2. Dehydration 3. Urinary tract infection 4. Electrolyte disturbance Conclusion Labs Laboratory Tests 12/28/19 22:30: Urine Color YELLOW, Urine Clarity CLEAR, Urine pH 5.5, Urine Specific [place] >=1.030, Urine Protein NEGATIVE, Urine Glucose (UA) NEGATIVE, Urine Ketones NEGATIVE, Urine Nitrite NEGATIVE, Urine Bilirubin NEGATIVE, Urine Urobilinogen 0.2, Urine Leukocyte Esterase NEGATIVE, Urine RBC (Auto) NEGATIVE, Urine RBC NONE, Urine WBC NONE, Urine Squamous Epithelial Cells 0-2, Urine Crystals PRESENTH, Urine Calcium Oxalate Crystals FEWH, Urine Amorphous Sediment FEW IAN URATESH, Urine Bacteria TRACE, Urine Casts NONE, Urine Mucus SMALLH, Urine Culture Indicated CULTURE PENDING 12/28/19 23:05: White Blood Count 11.4H, Red Blood Count 3.42L, Hemoglobin 11.3L, Hematocrit 33L , Mean Corpuscular Volume 95, Mean Corpuscular Hemoglobin 33, Mean Corpuscular Hemoglobin Concent 35, Red Cell Distribution Width 14.3, Platelet Count 219, Mean Platelet Volume 9.6, Neutrophils (%) (Auto) 69, Lymphocytes (%) (Auto) 21, Monocytes (%) (Auto) 9, Eosinophils (%) (Auto) 1, Basophils (%) (Auto) 0, Neutrophils # (Auto) 7.8, Lymphocytes # (Auto) 2.4, Monocytes # (Auto) 1.1H, Eosinophils # (Auto) 0.1, Basophils # (Auto) 0.0, Sodium Level 136, Potassium Level 4.7, Chloride Level 109H, Carbon Dioxide Level 14L, Anion Gap 13, Blood Urea Nitrogen 12, Creatinine 0.54L, Estimat Glomerular Filtration Rate > 60, BUN/Creatinine Ratio 22, Glucose Level 77, Calcium Level 8.9, Corrected Calcium 9.1, Total Bilirubin 0.3, Aspartate Amino Transf (AST/SGOT) 35H, Alanine Aminotransferase (ALT/SGPT) 13, Alkaline Phosphatase 45, Total Protein 6.9, Albumin 3.8 12/29/19 06:28: Sodium Level 138, Potassium Level 3.3L, Chloride Level 109H, Carbon Dioxide Level 22, Anion Gap 7, Blood Urea Nitrogen 8, Creatinine 0.53L, Estimat Glomerular Filtration Rate > 60, BUN/Creatinine Ratio 15, Glucose Level 94, Calcium Level 8.2L Microbiology 12/28/19 Urine Culture - Final, Complete NO GROWTH Conclusion/Plan Patient was ultimately released to home and given cephalexin 500 mg 3 times a day for the next 7 days. She will also follow-up in [address] Romero and at that time have laboratory rechecked which will include basic metabolic panel. JERAMY ROMERO MD Dec 29, 2019 16:16
== END 2019-12-29 10:30 | disposition home or self-care (01) ==
LOC: WSo 22:16 → LDRP 22:16 → WSo 12-29 10:30
PROVIDERS: ATTEND Family Medicine
DX: O23.42 Unspecified infection of urinary tract in pregnancy, second trimester (principal); O99.282 Endocrine, nutritional and metabolic diseases complicating pregnancy, second trimester; E86.0 Dehydration; Z3A.21 21 weeks gestation of pregnancy
CPT/HCPCS: 36415; 80048; 80053; 81000; 85025; 87088

== ENCOUNTER 2020-02-11 22:13 | Outpatient (CLI) | payer MEDICAID ==
[~2020-02-11] VITALS: Ht 162.6 cm; Wt 73.6 kg
[~2020-02-11 22:13] MED LIST changes: +CEPH-507 PO; +ONDA-105 SL; -ONDA4TAB10 SL
[2020-02-11 22:15] VITALS: BP 114/62
--- NOTE | 2020-02-11 22:20 | NUR ---
SHANTANU GUZMAN presented to unit via ambulatory from ED with c/o VOMITTING. SHANTANU GUZMAN weighed, gowned, voided, and to bed. EFHM and TOCO applied, VS taken. SHANTANU GUZMAN oriented to bed controls, call light, TV, heat, and A/C controls.
--- NOTE | 2020-02-11 22:56 | NUR ---
This RN called Dr Camacho to notify of patient arrival and complaint of nausea and vomiting. Notified of FHR variability, contraction pattern, vomit x1 since arrival, vital signs and urine dipstick. New orders received.
[2020-02-11] MEDS ORDERED: ONDANSETRON 4 MG/2 ML (SDV) Z0FRAN IVP PRN (23:00)
[2020-02-11] MEDS ORDERED: LACTATED RINGERS 1,000 ML IV SCH (23:00)
[2020-02-11] MEDS ORDERED: LACTATED RINGERS 1,000 ML IV ONE (23:05)
[2020-02-11] MEDS ORDERED: ONDANSETRON 4 MG/2 ML (SDV) Z0FRAN ONE (23:05)
--- NOTE | 2020-02-11 23:41 | NUR ---
Patient voices that she is feeling better since zofran and fluid administration. Requesting to go home once fluids are done.
--- NOTE | 2020-02-11 23:52 | NUR ---
IV removed from forearm, discharge instructions and handouts provided to patient. Patient verbalizes understanding.
--- NOTE | 2020-02-12 | NUR ---
Patient and s/o ambulating off of unit to private vehicle.
--- NOTE | 2020-02-14 08:40 | Physician Query-Final Dx ---
Clinic Account Progress/Dx Physician Query: Please give diagnosis Please include # weeks gestation Date of Service Feb 11, 2020 at 22:13 LYNSEY LOFTON Feb 14, 2020 08:40
== END 2020-02-12 | disposition home or self-care (01) ==
LOC: WSo 22:13 → LDRP 22:13 → WSo 02-12
PROVIDERS: ATTEND Family Medicine
DX: O21.9 Vomiting of pregnancy, unspecified (principal); Z3A.26 26 weeks gestation of pregnancy
CPT/HCPCS: 96361; 96374; 99213

== ENCOUNTER → 2020-03-20 | Outpatient (CLI) | payer MEDICAID ==
[2020-03-20 15:20] VITALS: BP 109/56
== END ==
LOC: WSo 14:26
PROVIDERS: ATTEND Family Medicine
DX: Z36.89 Encounter for other specified antenatal screening (principal); Z3A.00 Weeks of gestation of pregnancy not specified
CPT/HCPCS: 59025

== ENCOUNTER 2020-03-27 09:13 | Outpatient (RCR) | payer MEDICAID ==
[2020-03-13 09:06] VITALS: BP 102/50
--- NOTE | 2020-03-27 09:18 | NUR ---
to WS for scheduled NST. no s/s of distress noted.
[2020-03-27 10:24] VITALS: BP 115/57
--- NOTE | 2020-03-27 10:24 | NUR ---
efm removed. reactive nst obtained.
--- NOTE | 2020-03-27 10:25 | NUR ---
dr anthony called , reviewed results of NST.
--- NOTE | 2020-03-27 10:28 | NUR ---
out of Ws to home self care no s/s of distress noted.
--- NOTE | 2020-04-03 10:00 | NUR ---
SHANTANU GUZMAN presented to unit via from HOME FOR NST WEEKLY. SHANTANU GUZMAN weighed and to bed. EFHM and TOCO applied, VS taken. SHANTANU GUZMAN oriented to bed controls, call light, TV, heat, and A/C controls.
--- NOTE | 2020-04-03 10:36 | NUR ---
EFM OFF. REACTIVE NST.
--- NOTE | 2020-04-03 10:39 | NUR ---
DISMISSED AMB FROM WS IN STABLE CONDITION. DR. ELY NOTIFIED OF REACTIVE NST.
[2020-04-03 10:47] VITALS: BP 104/60
--- NOTE | 2020-04-10 09:00 | NUR ---
SHANTANU GUZMAN presented to unit via ambulation from ED, for NST. SHANTANU GUZMAN to bed. EFHM and TOCO applied, VS taken. SHANTANU GUZMAN oriented to bed controls, call light, TV, heat, and A/C controls.
--- NOTE | 2020-04-10 09:48 | NUR ---
Dr. Romero called and notified of reactive NST. Orders for dismissal rec'd.
[2020-04-10 09:50] VITALS: BP 99/62
--- NOTE | 2020-04-10 09:50 | NUR ---
Monitors d/c'd at this time. Pt ambulates off unit to private vehicle with all personal belongings. No s/s of distress noted.
[2020-04-15 10:22] VITALS: BP 105/62
--- NOTE | 2020-04-17 09:45 | NUR ---
to ws for scheduled weekly NST. no concerns noted by this Rn or voiced by patient. 0947 EFM applied.
--- NOTE | 2020-04-17 10:25 | NUR ---
dr anthony notified of reactive NST results. patient home to self care via private vehicle.
== END 2020-06-11 | disposition home or self-care (01) ==
LOC: WSo 09:13
PROVIDERS: ATTEND Family Medicine
DX: O09.293 Supervision of pregnancy with other poor reproductive or obstetric history, third trimester (principal); Z3A.32 32 weeks gestation of pregnancy
CPT/HCPCS: 59025

== ENCOUNTER → 2023-01-07 | Outpatient (CLI) | payer BC, MEDICAID ==
--- NOTE | 2023-01-07 16:59 | Diagnostic Imaging Report ---
INDICATION: dating and survey. TECHNIQUE: Multiple Real-time grayscale images were obtained over the gravid uterus. COMPARISON: None. FINDINGS: There is a single live fetus in a transverse presentation with the head to the maternal right. The heart rate was recorded at 147 BPM. Placenta is posterior. No previa is detected. Amniotic fluid volume appears normal. Cervical length is 4.7 cm. survey demonstrates kidneys, bladder, and stomach to be unremarkable. brain is unremarkable. There is a four-chamber heart. There is a three-vessel cord with normal insertion. spine is somewhat limited in evaluation due to maternal body habitus and age. Biometrical measurements are as follows: Biparietal 3.47 cm, age 16 weeks 5 days. Head circumference 13.16 cm, age 16 weeks 6 days. Abdominal circumference 11.33 cm, age 17 weeks 1 days. Femur length 2.12 cm, age 16 weeks 3 days. Sonographic estimate age: 17 weeks 0 days. Sonographic estimated date of delivery: 06/17/2023. Estimated Weight: 168 gm (+/- 25 gm). LMP percentile: N/A%. heart rate: 147 beats per minute. number: 1 of 1. IMPRESSION: Single live IUP of 17 weeks 0 days gestational age. The estimated date of confinement sonographically is 06/17/2023. Dictated by: Dictated on workstation # [id number]
== END ==
LOC: RAD 13:39
PROVIDERS: ATTEND Family Medicine
DX: Z34.92 Encounter for supervision of normal pregnancy, unspecified, second trimester (principal); Z3A.17 17 weeks gestation of pregnancy
CPT/HCPCS: 76805

== ENCOUNTER 2023-03-05 20:52 | Outpatient (CLI) | payer BC ==
[~2023-03-05] VITALS: Ht 162.6 cm; Wt 82.0 kg
[2023-03-05 21:15] VITALS: BP 111/60
--- NOTE | 2023-03-06 08:15 | Physician Query-Final Dx ---
KIRSTY,03/06/23 0815: Clinic Account Progress/Dx Physician Query: Please give diagnosis Please include # weeks gestation Date of Service Mar 05, 2023 at 20:52 LUIS CARLOS LARSEN DO 03/06/23 0833: Clinic Account Progress/Dx DIAGNOSIS: Diagnosis 25 wk GA decreased movement with reassuring FHT KIRSTY,DecMar 06, 2023 08:15 LUIS CARLOS LARSEN DO Mar 06, 2023 08:33
== END 2023-03-05 21:34 | disposition home or self-care (01) ==
LOC: LDRP 20:52 → WSo 20:52
PROVIDERS: ATTEND Family Medicine
DX: O36.8120 Decreased fetal movements, second trimester, not applicable or unspecified (principal); Z3A.25 25 weeks gestation of pregnancy
CPT/HCPCS: 99212

== ENCOUNTER → 2023-04-04 | Outpatient (CLI) | payer BC ==
--- NOTE | 2023-04-04 14:28 | Diagnostic Imaging Report ---
INDICATION: anatomy survey TECHNIQUE: Multiple real-time grayscale images were obtained over the gravid uterus. COMPARISON: 01/07/2023 FINDINGS: Cervix is not well visualized but measures approximately 4.7 cm in length. Fetus is in transverse lie. CRISTINA is normal 14.8 cm. Placenta is posterior position and there is no previa. The following anatomy is visualized and normal: Urinary bladder, three-vessel cord, kidneys, stomach, four-chamber heart, left ventricular outflow tract, profile, lips/nose, right ventricular outflow tract, umbilical cord insertion, cerebral ventricles, cisterna magna, cerebellum, spine. Biometrical measurements are as follows: Biparietal 7.53 cm, age 30 weeks 2 days. Head circumference 27.38 cm, age 30 weeks 0 days. Abdominal circumference 24.72 cm, age 29 weeks 0 days. Femur length 5.70 cm, age 30 weeks 0 days. Sonographic estimate age: 29 weeks 6 days. Sonographic estimated date of delivery: 06/14/2023. Estimated Weight: 1395 gm (+/- 204 gm). LMP percentile: 37%. heart rate: 143 beats per minute. number: 1 of 1. IMPRESSION: 1. Single live intrauterine has normal anatomy survey. 2. Estimated gestational age is concordant with clinical dates. Dictated by: Dictated on workstation # [id number]
== END ==
LOC: RAD 10:00
PROVIDERS: ATTEND Family Medicine
DX: Z34.93 Encounter for supervision of normal pregnancy, unspecified, third trimester (principal); Z3A.29 29 weeks gestation of pregnancy
CPT/HCPCS: 76805

== ENCOUNTER 2023-04-22 13:15 | Outpatient (RCR) | payer BC ==
[2023-04-22 14:00] VITALS: BP 110/69
== END 2023-04-30 ==
LOC: WSo 13:15
PROVIDERS: ATTEND Family Medicine
DX: O36.8190 Decreased fetal movements, unspecified trimester, not applicable or unspecified (principal); Z3A.35 35 weeks gestation of pregnancy
CPT/HCPCS: 59025

== ENCOUNTER 2023-05-06 09:33 | Outpatient (CLI) | payer BC ==
[~2023-05-06] VITALS: Ht 162.6 cm; Wt 80.4 kg
[2023-05-06 10:00] VITALS: BP 114/72
[2023-05-06] MEDS ORDERED: ACETAMINOPHEN 500 MG TAB (TYLENOL) PO NR (10:30)
--- NOTE | 2023-05-06 11:39 | Diagnostic Imaging Report ---
US BIOPHYSICAL PROFILE [id number] INDICATION: High risk . COMPARISON: 04/04/2023 FINDINGS: The fetus was watched by the technologist for 30 minutes. There was normal breathing, body movement, limb flexion and CRISTINA for a score of 8 out of 8. heart rate is 143 bpm. The CRISTINA is 12.57 cm. IMPRESSION: Normal biophysical profile. Dictated by: Dictated on workstation # [id number]
--- NOTE | 2023-05-07 08:22 | Physician Query-Final Dx ---
,05/07/23 0822: Clinic Account Progress/Dx Physician Query: Please give diagnosis Please include # weeks gestation Date of Service May 06, 2023 at 09:33 BERNARDO ELY MD 05/07/23 2136: Clinic Account Progress/Dx DIAGNOSIS: Diagnosis 1. Intrauterine at 34 weeks gestation 2. Previous demise 3. Biophysical profile 07/08,DecMay 07, 2023 08:22 BERNARDO ELY MD May 07, 2023 21:36
== END 2023-05-06 12:15 | disposition home or self-care (01) ==
LOC: WSo 09:33 → LDRP 09:33 → WSo 12:15
PROVIDERS: ATTEND Family Medicine
DX: O09.93 Supervision of high risk pregnancy, unspecified, third trimester (principal); O36.4XX0 Maternal care for intrauterine death, not applicable or unspecified; Z3A.34 34 weeks gestation of pregnancy
CPT/HCPCS: 59025; 76819

== ENCOUNTER 2023-05-13 15:01 | Outpatient (CLI) | payer BC ==
[~2023-05-13] VITALS: Ht 162.6 cm; Wt 81.4 kg
[2023-05-13 15:18] VITALS: BP 120/59
[2023-05-13 15:20] LABS: BILIRUBIN,URINE NEGATIVE (NEGATIVE); CLARITY,URINE CLOUDY; COLOR,URINE YELLOW; GLUCOSE, URINE (UA) NEGATIVE (NEGATIVE); KETONES,URINE 1+ (NEGATIVE); LEUKOCYTE ESTERASE ,URINE 3+ (NEGATIVE); NITRITE,URINE NEGATIVE (NEGATIVE); PROTEIN,URINE NEGATIVE (NEGATIVE)
[2023-05-13 15:27] LABS: BACTERIA,URINE LARGE /HPF; WBC,URINE 50-100 /HPF
[2023-05-13] MEDS ORDERED: LACTATED RINGERS 1,000 ML IV ONE ×2 (15:30→15:31)
[2023-05-13] MEDS ORDERED: ACETAMINOPHEN 500 MG TAB (TYLENOL) PO PRN (16:30)
[2023-05-13] MEDS ORDERED: LACTATED RINGERS 1,000 ML IV SCH (16:30)
[2023-05-13] MEDS ORDERED: ACETAMINOPHEN 500 MG TAB (TYLENOL) ONE (16:48)
[2023-05-13] MEDS ORDERED: CEPHALEXIN 250 MG (KEFLEX) CAP PO SCH (18:00)
[2023-05-13] MEDS ORDERED: CEPH500T PO (18:21)
[2023-05-13] MEDS ORDERED: CEPHALEXIN 250 MG (KEFLEX) CAP PO ONE (18:27)
--- NOTE | 2023-05-14 08:15 | Physician Query-Final Dx ---
KIRSTY,05/14/23 0815: Clinic Account Progress/Dx Physician Query: Please give diagnosis Please include # weeks gestation Date of Service May 13, 2023 at 15:01 BERNARDO ELY MD 05/28/23 2135: Clinic Account Progress/Dx DIAGNOSIS: Diagnosis 1. IUP at 34 weeks 2. Previous demise KIRSTY,DecMay 14, 2023 08:15 BERNARDO ELY MD May 28, 2023 21:35
== END 2023-05-13 18:38 | disposition home or self-care (01) ==
LOC: LDRP 15:01 → WSo 15:01
PROVIDERS: ATTEND Family Medicine
DX: O26.893 Other specified pregnancy related conditions, third trimester (principal); Z3A.34 34 weeks gestation of pregnancy
CPT/HCPCS: 81000; 87088; 96360; 96361; G0463; 99214

== ENCOUNTER 2023-06-04 05:56 | Inpatient (IN) | payer BC ==
[~2023-06-04] VITALS: Ht 162.6 cm; Wt 79.3 kg
[2023-06-04] VITALS (56 sets, daily range): BP systolic 80–128; BP diastolic 42–77
[~2023-06-04 05:56] MED LIST changes: +CEPH500T PO
--- NOTE | 2023-06-04 06:42 | History & Physical-OB ---
OB - Chief Complaint & HPI Date/Time Date of Admission: Date of Admission: Jun 04, 2023 at 05:56 Date seen by a Provider: Jun 04, 2023 Time Seen by a Provider: 06:30 Chief Complaint/History OB-Reason for Admission/Chief: Induction of Labor Hx : 4 Hx Para: 3 Expected Date of Delivery: Jun 16, 2023 Gestational Age in Weeks: 38 Indication for induction: other (previous demise at 33 weeks) Admission Nurse Assessment Rev: Yes History of Labs GBS negative Allergies and Home Medications Allergies Coded Allergies: Penicillins (Unverified Allergy, Mild, RASH, 07/13/13) PER LILLIAM RECEIVED ROCEPHIN IN ER 07/12; NO PROBLEMS SO FAR Patient Home Medication List Home Medication List Reviewed: Yes Cephalexin (Cephalexin) 500 Mg Tablet, 500 MG PO TID Prescribed by: ANALISA JONES on 05/13/231820 Vit W-Ca,Fe,FA(<1 mg) ( Vitamins) 1 Each Tablet, 1 EACH PO DAILY, (Reported) Entered as Reported by: COLLEEN TANNER on 02/22/172040 OB - History Hx of Present Care: Yes Ultrasounds: Normal mid trimester US Obstetrical Complications: Other (None, other than weekly NSTs due to previous demise) Medical Complications: None Delivery History Hx Blood Disorders: No Adverse Rxn to Tranfusion: No Patient Past Medical History No chronic medical problems Social History/Family History 2nd Hand Smoke Exposure: No Immunizations Hepatitis A: No Hepatitis B: No Tetanus Booster (TDap): Unknown OB - Admission Exam Physical Exam HEENT: Moist Membranes Heart: Rhythm Normal Lungs: Clear Abdomen: Gravid Extremities: Normal Cervical Dilatation: 2cm Effacement: 75% Station: -3 Membranes: Intact Amniotic Fluid: Clear Heart Rate: 140's Decelerations: No Decelerations Short Term Variability: Present Press Leader Variability: Average (6-25) Intensity: Mild Bello Scoring Tool (Modified) Dilation (cm): 1-2cm (1) Effacement (%): 51-79% (2) Descent/Station: -3 (0) Cervix Consistency: Medium(1) Cervix Position: Middle/Mid-Position (1) Add 1 point for: Each previous vaginal delivery (1) Bello Score: 7 OB - Assessment/Plan/Diagnosis Assessment Assessment: induction of labor (at term 38w2d secondary to previous demise) Admission Dx 1. IUP at term 38w2d 2. Previous demise Admission Status: Inpatient Order (span 2 midnights) Reason for Inpatient Admission: Induction of labor Plan Plan: Induction Induction Method: AROM Other Plan -pitocin as needed -desires epidural BERNARDO ELY MD Jun 04, 2023 06:42
[2023-06-04] MEDS ORDERED: MINERAL OIL 30 ML UDC TOP PRN (06:45)
[2023-06-04] MEDS ORDERED: FAMOTIDINE 20 MG (PEPCID) TABLET PO ONE (06:45)
[2023-06-04] MEDS ORDERED: OXYTOCIN PRE-MIX DRIP 500 ML IV SCH ×2 (06:45→16:00)
[2023-06-04 07:06] LABS: BASOPHILS % (AUTO) 0 % (0-10); EOSINOPHILS # (AUTO) 0.1 10^3/uL (0.0-0.3); EOSINOPHILS % (AUTO) 1 % (0-10); HEMATOCRIT 33 % (35-52); HEMOGLOBIN 11.3 g/dL (11.5-16.0); LYMPHOCYTES # (AUTO) 2.3 10^3/uL (1.0-4.0); LYMPHOCYTES % (AUTO) 24 % (12-44); MEAN CORPUSCULAR HEMOGLOBIN 31 pg (25-34); MEAN CORPUSCULAR HGB CONC 34 g/dL (32-36); MEAN CORPUSCULAR VOLUME 92 fL (80-99); MEAN PLATELET VOLUME 10.5 fL (9.0-12.2); MONOCYTES # (AUTO) 0.9 10^3/uL (0.0-1.0); MONOCYTES % (AUTO) 10 % (0-12); NEUTROPHILS # (AUTO) 6.2 10^3/uL (1.8-7.8); NEUTROPHILS % (AUTO) 64 % (42-75); PLATELET COUNT 183 10^3/uL (130-400); WHITE BLOOD COUNT 9.6 10^3/uL (4.3-11.0)
[2023-06-04] MEDS: D5 LR IV SOLUTION 1,000 ML IV SCH ×2 (07:06→12:19)
[2023-06-04] MEDS ORDERED: fentaNYL 2 mcg/ml BUPIVA 0.125 100 ML ONE (09:39)
[2023-06-04] MEDS ORDERED: BUPIVACAINE 0.25% 10 ML (SENSORCAINE) VIAL ONE (10:09)
[2023-06-04] MEDS ORDERED: fentaNYL INJ 100 MCG/2 ML AMP ONE (10:09)
[2023-06-04] MEDS ORDERED: diphenhydrAMINE 50 MG/ML INJ (BENADRYL) IV PRN (13:00)
[2023-06-04] MEDS ORDERED: ONDANSETRON 4 MG/2 ML (SDV) Z0FRAN IV PRN (13:00)
[2023-06-04] MEDS ORDERED: CATHETER FLUSH 10 ML SYR IV PRN (13:00)
[2023-06-04] MEDS ORDERED: NALOXONE 0.4 MG/ML 1 ML (NARCAN) VIAL IV PRN ×2 (13:00→16:00)
[2023-06-04] MEDS ORDERED: LACTATED RINGERS 1,000 ML IV ONE (13:00)
[2023-06-04] MEDS ORDERED: fentaNYL 2 mcg/ml BUPIVA 0.125 100 ML EPI SCH (13:00)
[2023-06-04] MEDS ORDERED: CATHETER FLUSH 10 ML SYR IV SCH ×2 (14:00→22:00)
--- NOTE | 2023-06-04 15:53 | OB Labor & Delivery Record ---
L&D History Date of Service Date of Service: Jun 04, 2023 History Expected Date of Delivery: Jun 16, 2023 Gestational Age in Weeks: 38 Hx : 4 Hx Para: 3 Complications Events: Routine care (Except for history of previous demise) Operative Indications (Cesarea: N/A-Vaginal Delivery Intrapartal Events: None Other Complications GBS was negative L&D Stage1 Stage One Onset of Labor - Date: Jun 04, 2023 Onset of Labor - Time: 06:30 Monitors and Tracing Monitor Mode: Internal Heart Rate: 140 Monitor Decelerations: None Station: -2 Usp Variability: Average (6-10) Short Term Variability: Present Presentation: Vertex Vital Signs VS - Last 72 Hours, by Label 06/04/23 06/04/23 06/04/23 06/04/23 06:15 07:30 07:45 08:00 Temp 36.7 35.2 Pulse 100 83 96 81 Resp 18 18 18 18 B/P (MAP) 103/60 (74) 103/59 (74) 105/62 (76) Pulse Ox 96 O2 Delivery Room Air Room Air Room Air Room Air 06/04/23 06/04/23 06/04/23 06/04/23 08:15 08:30 08:45 09:00 Temp 36.0 Pulse 93 83 81 84 Resp 18 18 18 18 B/P (MAP) 105/63 (77) 104/62 (76) 85/49 (61) 85/52 (63) O2 Delivery Room Air Room Air Room Air Room Air 06/04/23 06/04/23 06/04/23 06/04/23 09:15 09:30 09:45 10:00 Temp 36.0 Pulse 83 80 80 87 Resp 18 18 18 18 B/P (MAP) 90/53 (65) 125/56 (79) 122/57 (78) 111/54 (73) O2 Delivery Room Air Room Air Room Air Room Air 06/04/23 06/04/23 06/04/23 06/04/23 10:15 10:20 10:23 10:25 Pulse 85 102 85 96 Resp 18 18 18 18 B/P (MAP) 128/59 (82) 122/77 (92) 113/65 (81) 112/62 (79) Pulse Ox 100 97 100 O2 Delivery Room Air Room Air Room Air Room Air 06/04/23 06/04/23 06/04/23 06/04/23 10:30 10:35 10:40 10:45 Temp 37.3 Pulse 93 84 94 91 Resp 18 18 18 18 B/P (MAP) 111/59 (76) 107/55 (72) 100/54 (69) 103/57 (72) Pulse Ox 100 99 96 99 O2 Delivery Room Air Room Air Room Air Room Air 06/04/23 06/04/23 06/04/23 06/04/23 10:50 10:55 11:00 11:05 Pulse 86 105 100 123 Resp 18 18 18 18 B/P (MAP) 97/54 (68) 98/51 (67) 106/55 (72) 97/52 (67) Pulse Ox 99 97 96 97 O2 Delivery Room Air Room Air Room Air Room Air 06/04/23 06/04/23 06/04/23 06/04/23 11:10 11:15 11:30 11:45 Temp 35.6 Pulse 102 76 81 80 Resp 18 18 18 18 B/P (MAP) 95/51 (66) 101/56 (71) 102/57 (72) 99/56 (70) Pulse Ox 96 97 97 97 O2 Delivery Room Air Room Air Room Air Room Air 06/04/23 06/04/23 06/04/23 06/04/23 12:00 12:05 12:15 12:17 Pulse 65 69 75 77 Resp 18 18 18 18 B/P (MAP) 88/51 (63) 80/48 (59) 86/50 (62) 92/55 (67) Pulse Ox 99 99 99 100 O2 Delivery Room Air Room Air Room Air Room Air 06/04/23 06/04/23 06/04/23 06/04/23 12:20 12:30 12:40 12:45 Pulse 78 77 90 90 Resp 18 18 18 18 B/P (MAP) 95/53 (67) 100/52 (68) 111/59 (76) 106/59 (75) Pulse Ox 100 100 99 98 O2 Delivery Room Air Room Air Room Air Room Air 06/04/23 13:00 Pulse 90 Resp 18 B/P (MAP) 106/58 (74) O2 Delivery Room Air Signs of Distress by FHT Signs of Distress No Rupture of Membranes Spontaneous Ruture of Membrane: No Amniotic Membrane Rupture Time: 0630 Amniotic Membrane Fluid Desc.: Clear Induction/Anesthesia Epidural Cath Placement - Time: 1026 L&D Stage2 Stage Two Stage II Date: Jun 04, 2023 Stage II Time: 15:16 Monitors and Tracing Monitor Mode: Internal Heart Rate: 140 Monitor Accelerations: Uniform Monitor Decelerations: Early Usp Variability: Average (6-10) Short Term Variability: Present Position: Left Occiput Anterior Presentation: Vertex Cord Descript/Complications Cord Vessel Description: 3 Vessels Delivery Type Delivery Method: Spontaneous Vaginal Anterior Shoulder: Left Episiotomy/Perineal Laceration Laceraction(s)/Extensions: Yes Episiotomy Description: None, Perineal Extension/lac, 1st degree Sutures Used: Vicryl Condition of Delivery 1 minute Comment: 8 5 minute Comment: 9 Condition of Condition of Infant: Living Exam: No Observed Abnormalities Resuscitation Resuscitation: N/A - Spontaneous Resp L&D Stage3 Stage Three Stage III Date: Jun 04, 2023 Stage III Time: 15:21 Pictocin Pitocin Administration mu/min: 8 Pitocin ml/hr: 8 Pitocin Administration Comment: Pitocin increased Towel changed. Pt positioned to LS, peanut ball between legs, pillow behind back.Family members @ bs Placenta Delivery Placenta Delivery: Spontaneous Delivery Summary Summary Estimated blood loss (mL): 200 Condition of Delivery Examined: Cervix Examined Post Hemorrhage: Yes Intervention Required None BERNARDO ELY MD Jun 04, 2023 15:53
[2023-06-04] MEDS ORDERED: BENZOCAINE/MENTHOL (DERMOPLAST) 56 ML CAN TP PRN (16:00)
[2023-06-04] MEDS ORDERED: TETANUS,DIPTH,PERTUSS P/F (BOOSTRIX) 0.5 ML VIAL IM ONE (16:00)
[2023-06-04] MEDS ORDERED: MEASLES,MUMPS,RUBELLA 1 EA INJ SQ ONE (16:00)
[2023-06-04] MEDS ORDERED: WITCH HAZEL(TUCKS) 40 EA JAR TOP PRN (16:00)
[2023-06-04] MEDS: ACETAMINOPHEN 500 MG TAB (TYLENOL) PO SCH (18:24)
[2023-06-04] MEDS: IBUPROFEN 600 MG (MOTRIN) TAB PO SCH (18:24)
[2023-06-04] MEDS: DOCUSATE SODIUM 100 MG (COLACE) CAP PO SCH (21:17)
[2023-06-05 00:24] VITALS: BP 106/52
[2023-06-05] MEDS: ACETAMINOPHEN 500 MG TAB (TYLENOL) PO SCH ×3 (00:24→13:06)
[2023-06-05] MEDS: IBUPROFEN 600 MG (MOTRIN) TAB PO SCH ×3 (00:24→13:06)
[2023-06-05 04:27] VITALS: BP 85/53
[2023-06-05 06:00] LABS: BASOPHILS # (AUTO) 0.1 10^3/uL (0.0-0.1); BASOPHILS % (AUTO) 1 % (0-10); EOSINOPHILS # (AUTO) 0.1 10^3/uL (0.0-0.3); EOSINOPHILS % (AUTO) 1 % (0-10); HEMATOCRIT 27 % (35-52); HEMOGLOBIN 8.9 g/dL (11.5-16.0); LYMPHOCYTES # (AUTO) 2.2 10^3/uL (1.0-4.0); LYMPHOCYTES % (AUTO) 21 % (12-44); MEAN CORPUSCULAR HEMOGLOBIN 31 pg (25-34); MEAN CORPUSCULAR HGB CONC 33 g/dL (32-36); MEAN CORPUSCULAR VOLUME 95 fL (80-99); MEAN PLATELET VOLUME 10.7 fL (9.0-12.2); MONOCYTES % (AUTO) 9 % (0-12); NEUTROPHILS % (AUTO) 67 % (42-75); PLATELET COUNT 174 10^3/uL (130-400); WHITE BLOOD COUNT 10.5 10^3/uL (4.3-11.0)
--- NOTE | 2023-06-05 07:25 | Discharge Summary ---
Diagnosis/Chief Complaint Date of Admission Jun 04, 2023 at 05:56 Date of Discharge June 05, 2023 Discharge Date: Jun 05, 2023 Admission Diagnosis Admission Diagnosis 1. Intrauterine at term 38 weeks gestation 2. History of previous demise Discharge Diagnosis 1. Intrauterine at term 38 weeks gestation 2. History of previous demise Reason Hospital Visit 37-year-old female 4 now T3P1 L3 who initially presented to labor and delivery for induction of labor at 38 weeks gestation secondary to her history of previous demise. Her care and with this was essentially unremarkable. She had been receiving nonstress testing beginning at 34 weeks weekly. Her GBS status is noted to be negative. Discharge Summary-OBS Procedures 1. Epidural per anesthesia 2. Spontaneous vaginal delivery 3. Repair of minor perineal laceration Discharge Physical Examination Allergies: Coded Allergies: Penicillins (Unverified Allergy, Mild, RASH, 07/13/13) PER L[facility]IAM RECEIVED ROCEPHIN IN ER 07/12; NO PROBLEMS SO FAR Vitals & I&Os Vital Signs Date Time Temp Pulse Resp B/P (MAP) Pulse Ox O2 Delivery O2 Flow Rate FiO2 06/05/23 04:27 36.4 83 18 85/53 (64) 99 Room Air General Appearance: No Acute Distress Respiratory: Clear to Auscultation Cardiovascular: Regular Rate Abdominal: Soft Psych/Mental Status: Mental Status NL Hospital Course following admission she underwent antepartum care orders. She had no complications during the course of her labor. She ultimately went on to deliver a term viable male with Apgars of 8 at 1 minute and 9 at 5 minutes. See labor and delivery note for full details. Following delivery she underwent routine care orders. She had no complications during the remainder of her hospital stay. She was noted to have a hemoglobin of 8.9 in the AM of June 05 compared to admission of 11.3. She did not admit to any significant vaginal bleeding during the course of the morning of June 05. She was without any lightheadedness and her uterus remained firm. She was notified to continue to take extra iron with food daily. Ultimately she was felt ready for dismissal during the afternoon of June 05, 2023. She will follow up with myself in 6 weeks. Pending Labs Laboratory Tests 06/05/23 05:18: White Blood Count 10.5, Red Blood Count 2.90, Hemoglobin 8.9, Hematocrit 27, Mean Corpuscular Volume 95, Mean Corpuscular Hemoglobin 31, Mean Corpuscular Hemoglobin Concent 33, Red Cell Distribution Width 14.9, Platelet Count 174, Mean Platelet Volume 10.7, Immature Granulocyte % (Auto) 2, Neutrophils (%) (Auto) 67, Lymphocytes (%) (Auto) 21, Monocytes (%) (Auto) 9, Eosinophils (%) (Auto) 1, Basophils (%) (Auto) 1, Neutrophils # (Auto) 7.0, Lymphocytes # (Auto) 2.2, Monocytes # (Auto) 1.0, Eosinophils # (Auto) 0.1, Basophils # (Auto) 0.1, Immature Granulocyte # (Auto) 0.2 Discharge Instructions to patient/family Please see electronic discharge instructions given to patient. Discharge Medications Reviewed and agree with Discharge Medication list on patient's Discharge Instruction sheet BERNARDO ELY MD Jun 05, 2023 07:25
--- NOTE | 2023-06-05 07:28 | Discharge Inst-Women's Service ---
Discharge Inst-Women's Serv Depart Medication/Instructions New, Converted or Re-Newed RX: Other Instructions May take [id number] ibuprofen 2-3 tablets every 6 hours if needed for cramps. Also take iron sulfate 325 mg 1 tablet daily for the next month. Problems Reviewed?: Yes Consults/Follow Up Additional Follow Up: Yes (With Dr. Ely in 6 weeks.) Activity Driving Instructions: No Driving for 1 Week Nothing Inside Vagina: No [place] (For 6 weeks) Diet Discharge Diet: Regular Diet Return to The Hospital For: As below Symptoms to Report to : Bleeding Excessive, Fever Over 101 Degrees F, Lightheadedness, Vaginal Discharge Foul For Any Problems or Questions: Contact Your Physician BERNARDO ELY MD Jun 05, 2023 07:28
[2023-06-05 08:00] VITALS: BP 107/72
--- NOTE | 2023-06-05 08:20 | Anesthesia-Regional Post-Op ---
Regional Patient Condition Mental Status: Alert, Oriented x3 Circulation: Same as Pre-Op Headache: Absent Sensation: Full Recovery Motor Block: Absent Post Op Complications Complications None Follow Up Care/Instructions Patient Instructions None needed. Anesthesia/Patient Condition Patient is doing well, no complaints, stable vital signs, no apparent adverse anesthesia problems. No complications reported per nursing. D/C home per [facility] [place] Criteria: Yes LOI [place] CRNA Jun 05, 2023 08:20
[2023-06-05] MEDS ORDERED: TETANUS,DIPTH,PERTUSS P/F (BOOSTRIX) 0.5 ML VIAL IM ONE (09:06)
[2023-06-05] MEDS: DOCUSATE SODIUM 100 MG (COLACE) CAP PO SCH (09:11)
[2023-06-05 12:00] VITALS: BP 91/55
[2023-06-05 16:00] VITALS: BP 113/72
[2023-06-05 18:15] VITALS: BP 113/72
== END 2023-06-05 18:15 | disposition home or self-care (01) | DRG 807 ==
LOC: LDRP 05:56
PROVIDERS: ADMIT Family Medicine; ATTEND Family Medicine
PROC: 10E0XZZ Delivery of Products of Conception, External Approach (ICD-10-PCS; principal; 2023-06-04)
PROC: 10907ZC Drainage of Amniotic Fluid, Therapeutic from Products of Conception, Via Natural or Artificial Opening (ICD-10-PCS; 2023-06-04)
PROC: 0HQ9XZZ Repair Perineum Skin, External Approach (ICD-10-PCS; 2023-06-04)
PROC: 3E033VJ Introduction of Other Hormone into Peripheral Vein, Percutaneous Approach (ICD-10-PCS; 2023-06-04)
DX: O70.0 First degree perineal laceration during delivery (principal); Z37.0 Single live birth; Z3A.38 38 weeks gestation of pregnancy
CPT/HCPCS: 36415; 85025; 86780; 86850; 86900; 86901; 90715